=== PATIENT | female | born 1950 | race Two or more races ===

== ENCOUNTER 2019-04-02 12:06 | Inpatient (IN) | payer MEDICARE, MEDICAID ==
--- NOTE | 2019-04-02 12:57 | ED ---
HPI Cardiac - HPI Summary HPI Summary: Patient is a 68 y/o F presenting to ED for evaluation for "spot on my lung" noted on CXR by medical provider at [facility]. Patient reports that she has had SOB, chest pain with radiation to back and shoulders, dizziness, diffuse numbness and fatigue for the past couple of days. She additionally notes a cough that is productive of brown-tinged phlegm. Patient had a fever last night and this morning. On vitals, temp is 100.4 F. No abdominal pain or changes in appetite are noted. Male guest notes that the patient has Hx of episodes of dizziness. On triage, pain is rated 8/10, nothing is noted to aggravate/alleviate Sx. Home medications and allergies are reviewed. - History of Current Complaint Chief Complaint: EDChestWallPain Stated Complaint: SPOT ON LUNG/SENT BY PER PT Time Seen by Provider: 04/02/19 12:32 Hx Obtained From: Patient, Other: - male guest Onset/Duration: Started Days Ago, Still Present Timing: Constant, Lasting Days Current Severity: Severe Pain Intensity: 8 Pain Scale Used: 0-10 Numeric Chest Pain Radiates: Yes Chest Pain Radiates To:: Back, Shoulder - bilateral Aggravating Factor(s): Nothing Alleviating Factor(s): Nothing Associated Signs and Symptoms: Positive: Chest Pain, Numbness - diffuse, Dizziness, Shortness of Breath, Fever, Cough, Productive Cough, Other: - positive - fatigue; negative - change in appetite. Negative: Abdominal Pain - Allergy/Home Medications Allergies/Adverse Reactions: Allergies Allergy/AdvReac Type Severity Reaction Status Date / Time streptomycin Allergy Rash Verified 04/02/19 12:41 Home Medications: Home Medications Acetaminophen [Acetaminophen Extra Strength] 500 mg PO Q6HR PRN 04/02/19 [ History Confirmed 04/02/19] Atorvastatin* [Lipitor*] 40 mg PO DAILY 04/02/19 [History Confirmed 04/02/19] Betamethasone Dipropionate [Betamethasone Dipropionat] 0.05 % TOPICAL DAILY PRN 04/02/19 [History Confirmed 04/02/19] Cetirizine* [ZyrTEC 10 MG TAB*] 10 mg PO DAILY 04/02/19 [History Confirmed 04/02] Doxylamine Succinate [Unisom] 12.5 mg PO BEDTIME 04/02/19 [History Confirmed 11/15] Fluticasone NASAL SPRAY 50MCG* [Flonase NASAL SPRAY 50MCG*] 2 spray BOTH NARES DAILY 04/02/19 [History Confirmed 04/02/19] Gabapentin CAP(*) [Neurontin 100 mg CAP(*)] 100 - 300 mg PO BEDTIME 04/02/19 [ History Confirmed 04/02/19] LoraTADine TAB(NF) [Claritin 10 MG TAB(NF)] 10 mg PO DAILY 04/02/19 [History Confirmed 04/02/19] Ursodiol CAP* [Actigall CAP 300 MG*] 300 mg PO BID WITH MEALS 04/02/19 [History Confirmed 04/02/19] hydrOXYzine HCL TAB* [Atarax 25 MG TAB*] 25 mg PO Q6HR PRN 04/02/19 [History Confirmed 04/02/19] PMH/Surg Hx/FS Hx/Imm Hx Endocrine/Hematology History: Denies: Hx Diabetes Cardiovascular History: Denies: Hx Hypertension, Hx Pacemaker/ICD History: Denies: Hx Renal Disease Musculoskeletal History: 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 Sensory History: Reports: Hx Cataracts - BILATERAL Denies: Hx Hearing Aid Comment Only: Hx Contacts or Glasses - glasses Opthamlomology History: Reports: Hx Cataracts - BILATERAL Comment Only: Hx Contacts or Glasses - glasses Neurological History: Reports: Hx Headaches - LEFT SIDE OF HEAD, USUALLY WEEKLY Psychiatric History: Denies: Hx Panic Disorder - Surgical History Surgery Procedure, Year, and Place: EYE SURGERY FOR BLEED ([facility] 2013 REPORT FOR CATARACT REMOVAL AND LENS IMPLANT) Hx Anesthesia Reactions: No Infectious Disease History: No Infectious Disease History: Denies: Traveled Outside the [place] in Last 30 Days - Family History Known Family History: Positive: Other - migraines, brain cancer - Social History Alcohol Use: None Substance Use Type: Reports: None Smoking Status (MU): Light Every Day Tobacco Smoker Review of Systems Positive: Fever, Fatigue Positive: Chest Pain Positive: Shortness Of Breath, Cough Gastrointestinal: Other - negative - change in appetite Negative: Abdominal Pain Positive: Numbness - diffuse All Other Systems Reviewed And Are Negative: Yes Physical Exam - Summary Physical Exam Summary: General: Well-developed, Thin female. No acute distress. HEENT: Normocephalic, Atraumatic. Eyes: Conjuctiva normal, PERRL. Ears: TMs within normal limits. Nares: (-) discharge, (-) erythema. Oropharynx: Clear, mucous membranes moist, (-) exudates. Neck: Soft, FROM, (-) lymphadenopathy, (-) thyromegaly, (-) JVD. Cardiovascular: Normal sinus rhythm, (-) murmur. Lungs: Clear to auscultation bilaterally (-) wheezes, (-) rales, (-) rhonchi. Abdomen: Soft, non-tender, non-distended, (-) organomegaly, normal bowel sounds. Back: (-) CVA tenderness Extremities: No edema. Skin: Warm, dry, (-) rash. Neuro: Alert and oriented x3, no focal deficits, no focal weakness or numbness. Psychiatric: Mood normal, affect normal. Triage Information Reviewed: Yes Vital Signs On Initial Exam: Initial Vitals Temp Pulse Resp BP Pulse Ox 100.4 F 105 18 140/83 99 04/02/19 12:13 04/02/19 12:13 04/02/19 12:13 04/02/19 12:13 04/02/19 12:13 Vital Signs Reviewed: Yes Diagnostics - Vital Signs Vital Signs Temp Pulse Resp BP Pulse Ox 04/02/19 12:13 100.4 F 105 18 140/83 99 - Laboratory Result Diagrams: 04/02/19 12:59 04/02/19 12:59 Lab Statement: Any lab studies that have been ordered have been reviewed, and results considered in the medical decision making process. - CT CT CHEST CT Interpretation Completed By: Radiologist Summary of CT Findings: IMPRESSION: 1. 4 CM SPICULATED MASS OF THE RIGHT UPPER LOBE. 2. MILIARY NODULARITY OF THE LUNGS CONSISTENT WITH HEMATOGENOUS METASTATIC DISEASE GIVEN. THE PRESENCE OF A RIGHT LUNG MASS. 3. SCLEROTIC LESIONS OF THE VERTEBRAL COLUMN CONSISTENT WITH OSTEOBLASTIC METASTATIC. DISEASE GIVEN THE PRESENCE OF A RIGHT LUNG MASS. THIS REPORT WAS REVIEWED BY DR. BEDOYA. - EKG 1221 Cardiac Rate: NL - rate of 95 BPM EKG Rhythm: Sinus Rhythm Summary of EKG Findings: EKG showed NSR with rate of 95 BPM, no STEMI. This EKG was reviewed and interpreted by Dr. Bedoya. Re-Evaluation - Re-Evaluation First Eval Re-Evaluation Time: 13:38 Comment: Physician from [facility] called, it is reported that there were concerns for TB on patient's CXR. Patient placed in n95 mask, moved to another room. Airborne precautions initiated. Second Eval Re-Evaluation Time: 16:41 Comment: Discussed results and admission with the patient, patient is agreeable with admission. Disposition - Course Course Of Treatment: Patient is a 68 y/o F presenting to ED for evaluation for "spot on my lung" noted on CXR by medical provider at [facility]. Patient reports that she has had SOB, chest pain with radiation to back and shoulders, dizziness, diffuse numbness and fatigue for the past couple of days. She additionally notes a cough that is productive of brown-tinged phlegm. Patient had a fever last night and this morning. Patient is noted to be thin-appearing. There are no focal neurological deficits on physical exam. EKG showed NSR with rate of 95 BPM, no STEMI. Physician from [facility] called, it is reported that there were concerns for TB on patient's CXR. Patient placed in n95 mask, moved to another room. Airborne precautions initiated. Bloodwork was obtained. Abnormal values include alk phos 158, glucose 114, BUN/creatinine ratio 24.2. Lactic was 1, first and second trop were negative. During ED course, patient received fluids. CT CHEST IMPRESSION: 1. 4 CM SPICULATED MASS OF THE RIGHT UPPER LOBE. 2. MILIARY NODULARITY OF THE LUNGS CONSISTENT WITH HEMATOGENOUS METASTATIC DISEASE GIVEN. THE PRESENCE OF A RIGHT LUNG MASS. 3. SCLEROTIC LESIONS OF THE VERTEBRAL COLUMN CONSISTENT WITH OSTEOBLASTIC METASTATIC. DISEASE GIVEN THE PRESENCE OF A RIGHT LUNG MASS. Patient's case was discussed with Dr. Rosenthal, Dr. Rosenthal recommends discussing case with hospitalist. Patient 's case was discussed with Dr. Adarsh Lemus accepts for admission. Patient is agreeable with admission. - Diagnoses Provider Diagnoses: Weakness, SOB (shortness of breath), Mass of right lung - Physician Notifications Discussed Care Of Patient With: Cherri Rosenthal Time Discussed With Above Provider: 16:10 Instructed by Provider To: Other - Patient's case was discussed with Dr. Rosenthal , Dr. Rosenthal recommends discussing case with hospitalist. Patient's case was discussed with Dr. Adarsh Lemus accepts for admission. Discharge ED - Sign-Out/Discharge Documenting (check all that apply): Patient Departure - admit Patient Received Moderate/Deep Sedation with Procedure: No - Discharge Plan Condition: Fair Disposition: ADMITTED TO [facility] Referrals: Rebecca Kiser NP [Primary Care Provider] - - Billing Disposition and Condition Condition: FAIR Disposition: Admitted to [facility] - Attestation Statements Document Initiated by Scribe: Yes Documenting Scribe: DIGOENES GREGORIO Provider For Whom Scribe is Documenting (Include Credential): MARCELO BEDOYA MD Scribe Attestation: DIOGENES Obrien, scribed for MARCELO BEDOYA MD on 04/02/19 at 1808. Scribe Documentation Reviewed: Yes Provider Attestation: The documentation as recorded by the DIOGENES ga accurately reflects the service I personally performed and the decisions made by me, MARCELO BEDOYA MD Status of Scribe Document: Viewed
[2019-04-02 13:09] LABS: ABS Basophils 0.1 10^3/ul (0-0.2); ABS Monocytes 0.7 10^3/ul (0-0.8); Eosinophil % 0.2 %; Hematocrit 41 % (35-47); Hemoglobin 14.1 g/dL (12.0-16.0); Lymphocyte % 13.3 %; Mean Corpuscular HGB Conc 34 g/dL (31-36); Mean Corpuscular Hemoglobin 31 pg (27-31); Mean Corpuscular Volume 90 fL (80-97); Mean Platelet Volume 8.3 fL (7.4-10.4); Nucleated Red Blood Cells % 0.1; Platelet Count 226 10^3/uL (150-450); Red Blood Count 4.58 10^6 /uL (3.70-4.87); Red Cell Distribution Width 14 % (10-15); White Blood Count 7.8 10^3/uL (3.5-10.8)
[2019-04-02] MEDS ORDERED: NS 0.9% 1000 ML** 1,000 ML IV ONE (13:10)
[2019-04-02 13:19] LABS: INR 1.02 (0.82-1.09)
--- OUTSIDE RECORDS SUMMARY | 2019-04-02 13:20 | XMS REPORT | Summary of Care ---
:1950 Author Organization [facility] Address [address] [place] [address] Care Team Providers Name Role Phone Matthew Ibarra MD Primary Care Provider Reason for Visit Reason Comments Tongue Problem Tongue has been sore for two weeks and she is extremely tired and has no appetite for two weeks. Nail Problem Patient is concerned about the change in color of her nails. Encounter Details Date Type Department Care Team Description 03/04/2019 Office Visit [place] [facility] Matthew Ibarra, Polymyalgia (HCC ) (Primary Dx); Medicine Tongue pain; [address] [facility] Lip swelling; [place], [place] [id number] [place] [address] Weakness; [phone] Malaise and fatigue Allergies Active Allergy Reactions Severity Noted Date Comments Streptomycin 03/10/2008 Severe swelling and anaphylactic symptoms. documented as of this encounter (statuses as of 03/04/2019) Medications Medication Sig Dispensed Refills Start Date End Date Status loratadine Take 1 Tab by 30 Tab 5 08/14/2014 Active (CLARITIN,ALAVERT) 10 MG mouth DAILY. Oral TabIndications: Rhinitis fluticasone (FLONASE) 50 SPRAY 2 SPRAY IN 1 Bottle 5 06/28/2015 Active MCG/ACT Nasal Suspension NOSE DAILY acetaminophen (PAIN & Take 1 Tab by 100 Tab 5 07/19/2015 Active FEVER EXTRA STRENGTH) mouth EVERY SIX 500 MG Oral HOURS NEEDED TabIndications: Trigger for Pain. middle finger of right hand hydrOXYzine pamoate Take 1 Cap by 120 Cap 4 04/13/2016 Active (VISTARIL) 25 MG Oral mouth EVERY SIX CapIndications: Itch HOURS NEEDED (itch). augmented betamethasone APPLY DAILY ONTO 50 g 5 04/11/2018 Active dipropionate SKIN NEEDED (DIPROLENE-AF) 0.05 % Apply externally CreamIndications: Itch atorvastatin (LIPITOR) Take 1 Tab by 90 Tab 3 10/08/2018 Active 40 MG Oral Tab mouth DAILY. Doxylamine Succinate, Take 0.5 Tabs by 0 Active Sleep, (UNISOM PO) mouth EVERY BEDTIME. cetirizine (ZYRTEC) 10 Take 1 Tab by 30 Tab 10 10/30/2018 Active MG Oral TabIndications: mouth DAILY. Allergic rhinitis due to dust ursodiol (ACTIGALL) 300 Take 1 Cap by 60 Cap 1 11/27/2018 Active MG Oral Cap mouth TWO TIMES DAILY WITH MEALS. gabapentin (NEURONTIN) Take 1-3 Caps by 90 Cap 0 12/10/2018 Active 300 MG Oral Cap mouth EVERY BEDTIME. predniSONE (DELTASONE) Take 1 Tab by 14 Tab 0 03/04/2019 Active 10 MG Oral Tab mouth DAILY. documented as of this encounter (statuses as of 03/04/2019) Active Problems Problem Noted Date Finger pain, right 07/21/2015 Trigger finger of right hand 07/21/2015 Allergic rhinitis due to dust 09/11/2014 Allergic rhinitis due to pollen 09/11/2014 Hyperlipidemia 03/10/2008 History of Migraine Headaches 03/10/2008 documented as of this encounter (statuses as of 03/04/2019) Resolved Problems Problem Noted Date Resolved Date Seasonal allergies 03/10/2008 09/11/2014 documented as of this encounter (statuses as of 03/04/2019) Immunizations Name Administration Dates Next Due Depo Medrol (80mg) 07/21/2015 H1N1 Injectable Adult 09/22/2009 Influenza (IM) Preservative Free 05/19/2015, 06/11/2014, 05/04/2010 Influenza Vaccine High Dose 2018 Pneumococcal Conjugate(13 Valent) 11/20/2015 TDAP Vaccine 06/28/2018, 03/24/2009 documented as of this encounter Social History Tobacco Use Types Packs/Day Years Used Date Former Smoker Smokeless Tobacco: Never Used Comments: quit 10 year ago Alcohol Use Drinks/Week oz/Week Comments No 0 Standard drinks or equivalent 0.0 Sex Assigned at Date Recorded Not on file Job Start Date Occupation Industry Not on file Not on file Not on file Travel History Travel Start Travel End No recent travel history available. documented as of this encounter Last Filed Vital Signs Vital Sign Reading Time Taken Comments Blood Pressure 110/78 03/04/2019 4:01 PM EDT Pulse 99 03/04/2019 4:01 PM EDT Temperature 37.2 03/04/2019 4:01 PM EDT C (99 F) Respiratory Rate - - Oxygen Saturation 98% 03/04/2019 4:01 PM EDT Inhaled Oxygen Concentration - - Weight 51.7 kg (114 lb) 03/04/2019 4:01 PM EDT Height 157.5 cm (5' 2") 03/04/2019 4:01 PM EDT Body Mass Index 20.85 03/04/2019 4:01 PM EDT documented in this encounter Patient Instructions Patient InstructionsMatthew Ibarra MD - 03/04/2019 4:00 PM EDTBlood test today continue current medications This is not allergies Prednisone 10 mg once daily 2 weeks Follow up me or Rebecca Kiser [employer]ICAL BIOSTATISTICS DIRECTOR 2-3 weeks documented in this encounter Progress Notes Matthew Ibarra MD - 03/04/2019 4:00 PM EDT PATIENT: Gillian Han : 1950 DATE OF SERVICE: 03/04/2019 CHIEF COMPLAINT: Chief Complaint Patient presents with Tongue Problem Tongue has been sore for two weeks and she is extremely tired and has no appetite for two weeks. Nail Problem Patient is concerned about the change in color of her nails. Subjective HISTORY OF PRESENT ILLNESS: Gillian Han is a 68-y.o. female. HPI 3-4 weeks diffuse muscle aches and weakness no fevers or infectious symptoms She also notes tongue underneath feeling ache and pain no other mouth symptoms She notes ache in arms and legs and trouble combing her hair no joint redness or swelling using no medications for symptoms Denies tick bite or recent foreign travel Patient Active Problem List Diagnosis Hyperlipidemia History of Migraine Headaches Allergic rhinitis due to dust Allergic rhinitis due to pollen Finger pain, right Trigger finger of right hand Family History Problem Relation Age of Onset Hypertension Father Current Outpatient Medications Medication Sig acetaminophen (PAIN & FEVER EXTRA STRENGTH) 500 MG Oral Tab Take 1 Tab by mouth EVERY SIXHOURS NEEDED for Pain. atorvastatin (LIPITOR) 40 MG Oral Tab Take 1 Tab by mouth DAILY. augmented betamethasone dipropionate (DIPROLENE-AF) 0.05 % Apply externally Cream APPLY DAILYONTO SKIN NEEDED cetirizine (ZYRTEC) 10 MG Oral Tab Take 1 Tab by mouth DAILY. Doxylamine Succinate, Sleep, (UNISOM PO) Take 0.5 Tabs by mouth EVERY BEDTIME. fluticasone (FLONASE) 50 MCG/ACT Nasal Suspension SPRAY 2 SPRAY IN NOSE DAILY gabapentin (NEURONTIN) 300 MG Oral Cap Take 1-3 Caps by mouth EVERY BEDTIME. hydrOXYzine pamoate (VISTARIL) 25 MG Oral Cap Take 1 Cap by mouth EVERY SIX HOURS NEEDED (itch). loratadine (CLARITIN,ALAVERT) 10 MG Oral Tab Take 1 Tab by mouth DAILY. predniSONE (DELTASONE) 10 MG Oral Tab Take 1 Tab by mouth DAILY. ursodiol (ACTIGALL) 300 MG Oral Cap Take 1 Cap by mouth TWO TIMES DAILY WITH MEALS. No current facility-administered medications for this visit. Allergies Allergen Reactions Streptomycin Severe swelling and anaphylactic symptoms. Social History Socioeconomic History Marital status: Single Spouse name: Not on file Number of children: Not on file Years of education: Not on file Highest education level: Not on file Occupational History Not on file Social Needs Financial resource strain: Not on file Food insecurity: Worry: Not on file Inability: Not on file Transportation needs: Medical: Not on file Non-medical: Not on file Tobacco Use Smoking status: Former Smoker Smokeless tobacco: Never Used Tobacco comment: quit 10 year ago Substance and Sexual Activity Alcohol use: No Alcohol/week: 0.0 standard drinks Drug use: No Sexual activity: Yes Partners: Male Lifestyle Physical activity: Days per week: Not on file Minutes per session: Not on file Stress: Not on file Relationships Social connections: Talks on phone: Not on file Gets together: Not on file Attends christian service: Not on file Active member of club or organization: Not on file Attends meetings of clubs or organizations: Not on file Relationship status: Not on file Intimate partner violence: Fear of current or ex partner: Not on file Emotionally abused: Not on file Physically abused: Not on file Forced sexual activity: Not on file Other Topics Concern Back Care Not Asked Bike Helmet Not Asked Blood Transfusions Not Asked Caffeine Concern No Exercise Yes Comment: walks daily Hobby Hazards Not Asked International Travel Not Asked Service Not Asked Occupational Exposure Not Asked Seat Belt Not Asked Self-Exams Not Asked Sleep Concern Not Asked Special Diet Yes Comment: low fat Stress Concern Not Asked Weight Concern No Social History Narrative [place] immigrant Lives in [facility] with daughter Retired from restaurant business Over the last 2 weeks, have you been feeling down, depressed, anxious, or hopeless?: 0 Over the past 2 weeks, have you felt little interest or pleasure in doing things ?: 0 ROS no rash No pulmonary symptoms Objective PHYSICAL EXAM: VITALS: BP 110/78 | Pulse 99 | Temp 99 F (37.2 C) | Ht 5' 2" (1.575 m) | Wt 114 lb (51.7 kg) | SpO2 98% | BMI 20.85 kg/m Body mass index is 20.85 kg/m. Physical Exam A general joint exam is normal with full range of motion of spine, shoulders, elbows, wrists, fingers, hips, knees and ankles; no active swelling, tenderness or synovitis at any joint. No soft tissuenodules. No muscle tenderness or weakness no rash Throat exam normal. Oral cavity, tongue, pharynx and palate have no inflammation or suspicious lesions. Teeth normal without tenderness ASSESSMENT / IMPRESSION: ICD-9-CM ICD-10-CM 1. Polymyalgia (HCC) rule out Polymyalgia Rheumatica empiric trial Prednisone 10 mg 2-3 weeks followup me 3 weeks esr crp and complete blood count 725 M35.3 CBC WITH DIFFERENTIAL CREATINE KINASE SEDIMENTATION RATE C-REACTIVE PROTEIN COMPREHENSIVE METABOLIC PANEL 2. Tongue pain ? Etiology 529.6 K14.6 4. Weakness 780.79 R53.1 5. Malaise and fatigue 780.79 R53.81 R53.83 Patient Instructions Blood test today continue current medications This is not allergies Prednisone 10 mg once daily 2 weeks Follow up me or Rebecca Kiser NP 2-3 weeks Matthew Ibarra MD 03/04/2019 17:24 documented in this encounter Plan of Treatment Name Type Priority Associated Diagnoses Date/Time CBC WITH DIFFERENTIAL Lab Routine Polymyalgia (HCC) 03/04/2019 4:26 PM EDT CREATINE KINASE Lab Routine Polymyalgia (HCC) 03/04/2019 4:26 PM EDT SEDIMENTATION RATE Lab Routine Polymyalgia (HCC) 03/04/2019 4:26 PM EDT C-REACTIVE PROTEIN Lab Routine Polymyalgia (HCC) 03/04/2019 4:26 PM EDT COMPREHENSIVE METABOLIC Lab Routine Polymyalgia (HCC) 03/04/2019 4:26 PM EDT PANEL Health Maintenance Due Date Last Done Comments ZOSTER IMMUNIZATION SERIES 2000 (1 of 2) FALL RISK ASSESSMENT 2015 OSTEOPOROSIS SCREENING 2015 PNEUMOCOCCAL 65+YRS (2 of 2 11/19/2016 11/20/2015 - PPSV23) MEDICARE ANNUAL WELLNESS 02/14/2017 02/15/2016, 02/15/2016 VISIT INFLUENZA VACCINE (#1) 2019 2018, 05/19/2015, 06/11/2014, Additional history exists MAMMOGRAM (SCREENING) 05/15/2019 05/15/2018, 03/13/2016, 02/15/2016, Additional history exists LIPID DISORDER SCREENING 10/09/2019 10/08/2018, 12/10/2017, 02/15/2016, Additional history exists DEPRESSION SCREENING 03/04/2020 03/04/2019 COLONOSCOPY SCREENING 07/08/2022 07/08/2013, 03/27/2011 HPV IMMUNIZATION SERIES Aged Out No longer eligible based on patient's age to complete this topic MENINGOCOCCAL VACCINE IMM Aged Out No longer eligible based on patient's age to complete this topic documented as of this encounter Results Not on filedocumented in this encounter Visit Diagnoses Diagnosis Polymyalgia (HCC) - Primary Polymyalgia rheumatica Tongue pain Glossodynia Lip swelling Diseases of lips Weakness Other malaise and fatigue Malaise and fatigue Other malaise and fatigue documented in this encounter Insurance Payer Benefit Plan / Subscriber ID Effective Dates Phone Address Type Group MEDICARE MEDICARE PART A xxxxxxxxxx 2015-Present Medicare & B MEDICAID [facility] xxxxxxxx 2017-Present Medicaid [place] documented as of this encounter
[2019-04-02 13:31] LABS: ALT 14 U/L (7-52); AST 27 U/L (13-39); Albumin 4.3 g/dL (3.2-5.2); Albumin/Globulin Ratio 1.3 (1-3); Alkaline Phosphatase 158 U/L (34-104); Anion Gap 5 mmol/L (2-11); BUN/Creatinine Ratio 24.2 (8-20); Blood Urea Nitrogen 15 mg/dL (6-24); CO2 Carbon Dioxide 27 mmol/L (22-32); Calcium 9.5 mg/dL (8.6-10.3); Chloride 104 mmol/L (101-111); EGFR African American 115.8 (>60); EGFR Non-African American 95.7 (>60); Globulin 3.2 g/dL (2-4); Glucose 114 mg/dL (70-100); Potassium 3.9 mmol/L (3.5-5.0); Sodium 136 mmol/L (135-145); Total Protein 7.5 g/dL (6.4-8.9)
[2019-04-02] MEDS ORDERED: Iohexol 300* (CONTRAST) 10 ML SDV IV ONE (14:51)
[2019-04-02] MEDS ORDERED: Acetaminophen TAB* 325 MG PO ONE (16:44)
[2019-04-02 17:03] LABS: % Iron Saturation 15 % (15-55); Iron 41 ug/dL (50-212); Total Iron Binding Capacity 280 mcg/dL (250-450); Transferrin 200 mg/dL (203-362)
[2019-04-02 17:24] LABS: Ferritin 214.1 ng/mL (11-307)
[2019-04-02] MEDS ORDERED: Al Hydrox/Mg Hydrox/Simet LIQ* 30 ML UDC PO PRN (18:30)
[2019-04-02] MEDS ORDERED: Senna TAB 8.6 mg* TAB PO PRN (18:30)
[2019-04-02] MEDS ORDERED: Ondansetron INJ* 2 MG/ML VIAL IV PRN (18:30)
[2019-04-02] MEDS ORDERED: Acetaminophen TAB* 325 MG PO PRN (18:30)
[2019-04-02] MEDS ORDERED: Dexamethasone IV* 4 MG/ML 1 ML (4 MG) IV SLOW PU ONE (20:04)
--- NOTE | 2019-04-02 20:38 | HP ---
CC: Dr. Ibarra* HISTORY AND PHYSICAL: DATE OF ADMISSION: 04/02/19 PRIMARY CARE PROVIDER: Dr. Ibarra. ATTENDING PHYSICIAN WHILE IN THE HOSPITAL: Dr. Yordan Nielsen* (dictated by JOSEFA Shepard). CHIEF COMPLAINT: Weakness and abnormal chest x-ray. HISTORY OF PRESENT ILLNESS: Gillian Hna is a 68-year-old Japanese female with past medical history significant for gallstones and hyperlipidemia, who presents to the emergency department today upon direction of her primary care provider, Dr. Ibarra. The patient tells me that she reported to her primary care provider today because she has been having a cough with brown sputum infrequently and difficulty breathing for the last 3 to 4 days. Additionally, she has been having feeling generalized weakness, has been worsening over the last several days. She saw her primary care provider today, who performed a chest x-ray that was found to be abnormal and she was directed to the emergency department. The patient additionally tells me that she has been having bilateral hand and leg numbness and weakness intermittently for the last year. She additionally tells me she has low back and shoulder pain for the last week that has been relieved by Tylenol. Additionally, she tells me she had 1 episode of chest pain that was relieved by Bengay in the lateral aspect of her chest that lasted for 1 day about 3 to 4 days ago. Additionally, she felt symptomatic fever at that time, but this episode has since resolved. She never checked her temperature at that time. The patient has been having difficulty ambulating around her home. Additionally, she is finding that she is having difficulty buttoning her shirt and holding a mug. The patient is left-handed. The patient denies chest pain at the time of evaluation. The patient's breathing feels comfortable at the time of evaluation. Denies visual changes. She tells me that she has had blurred peripheral vision since her cataract repair. She denies abdominal pain or urinary difficulty. EMERGENCY DEPARTMENT COURSE: The patient had a CT of her chest, which demonstrated a spiculated lung mass of 4 cm and miliary nodularity of the lungs consistent with hematogenous metastatic disease and sclerotic lesions in the vertebral column consistent with osteoblastic metastatic disease. The patient additionally was having difficulty ambulating in the emergency department and felt too weak. Therefore, Hospital Medicine was asked to evaluate the patient for admission. PAST MEDICAL HISTORY: 1. Hyperlipidemia. 2. Gallstones. PAST SURGICAL HISTORY: Bilateral cataract surgery. HOME MEDICATIONS: 1. Hydroxyzine 25 mg p.o. q.6 hours p.r.n. itching. 2. Ursodiol 300 mg p.o. b.i.d. with meals. 3. Loratadine 10 mg p.o. daily. 4. Gabapentin 100 to 300 mg p.o. at bedtime. 5. Fluticasone 2 sprays both nares daily. 6. Unisom 12.5 mg p.o. at bedtime. 7. Cetirizine 10 mg p.o. daily. 8. Betamethasone dipropionate 0.05% topical daily p.r.n. itching. 9. Lipitor 40 mg p.o. daily. 10. Acetaminophen 500 mg p.o. q.6 hours p.r.n. pain. ALLERGIES: STREPTOMYCIN (rash). FAMILY HISTORY: Father of a head injury during [place] War in his 40s. Mother, healthy per the patient, who in her 97 of natural causes. SOCIAL HISTORY: The patient is a Japanese immigrant, who came to [place] in the 1980s. She and her are . They have 3 children together. She is a retired restaurant mill hand plate mill. She denies alcohol use and drug use. She is a former smoker and smoked 1 cigarette per day for approximately 15 to 20 years total and she tells me she quit approximately 15 years ago at least. The patient would like her son, Vicente Hughes, to be her surrogate medical decision maker should she need one. His phone number is [phone]. REVIEW OF SYSTEMS: An 11-point review of systems is negative. All pertinent positives and negatives are above in the HPI. All other systems are negative. PHYSICAL EXAMINATION GENERAL: A thin, elderly female, lying in hospital bed, appearing comfortable, in no acute distress, son at bedside. HEENT: Eyes: PERRL. Sclerae anicteric. No nystagmus. Visual kc are not full to confrontation as vision in the lateral aspect of bilateral visual kc is not intact. ENT: Lips appear dry. NECK: Supple without JVD. LUNGS: Clear to auscultation throughout. CARDIO: Regular rate and rhythm without murmurs, rubs, or gallops. ABDOMEN: Soft, nontender, nondistended. EXTREMITIES: No clubbing, cyanosis, or edema. NEURO: The patient is somewhat ataxic on the left lower extremity and left upper extremity. Sensation to light touch is diminished in the left lower extremity and left upper extremity. Strength is approximately 4/5 in the right upper extremity. Strength is approximately 2/5 in the left upper extremity. Strength in the lower extremities bilaterally 5/5 and equal. Speech is clear. Face is symmetrical. Sensation to light touch throughout face is symmetrical. PSYCH: The patient is cooperative and pleasant. DIAGNOSTIC STUDIES/LAB DATA: CT of the chest: 1. A 4-cm spiculated mass in the right upper lobe. 2. Miliary nodularity of the lungs consistent with hematogenous metastatic disease given the presence of right lung mass. 3. Sclerotic lesions in the vertebral column consistent with osteoblastic metastatic disease given the presence of right lung mass. Labs: White blood cells 7.8, hemoglobin 14.1, hematocrit 41, platelet count 226. Sodium 136, potassium 3.9, chloride 104, carbon dioxide 27, anion gap 5, BUN 15, creatinine 0.62, glucose 114, lactic acid 1, calcium 9.5. Alk phos 158. LFTs otherwise unremarkable. Troponin 0.0. B12 is 362. ASSESSMENT AND PLAN: Gillian Han is a 68-year-old female with past medical history of hyperlipidemia and gallstones, who presents to the emergency department due to weakness and abnormal chest x-ray, who was found to have spiculated lung mass. The patient will be admitted in observation for: 1. Brown sputum and lung mass. Given the patient is from [place] and that she is having some brown sputum, it is possible that the miliary nodules found on the CT represent miliary tuberculosis. It is quite possible that this mass of the right upper lobe is presenting with hematogenous metastatic miliary nodules , but it is also possible that there is a right upper lobe cancer that is reactivating tuberculosis. I have discussed with the patient that the lung mass needs further outpatient workup for a biopsy. In the inpatient stay, I will be testing the patient for tuberculosis with an acid-fast, sputum culture and placing the patient under isolation precautions with negative pressure. The patient does tell me she was symptomatically feeling feverish days ago. Technically, she had a fever upon arrival of 104, but then with administration of Tylenol did have resolution of this fever. Her lactic acid is within normal limits. The patient is without leukocytosis. We will continue to monitor her fever and continue p.r.n. Tylenol. 2. Left upper extremity weakness. The patient tells me this has been going on for 2 weeks. It is quite possible that the patient has metastatic brain disease ; however, a stroke remains in the differential. I have ordered a stat CT of the brain. Depending on the results of this test, I will order a brain MRI with and without contrast. If the brain MRI or CT of the brain is revealing of metastatic disease, then I will perform further stroke workup at this time. As far as the stroke workup, I will order fasting lipids and hemoglobin A1c in the morning. 3. Bilateral lower extremity neuropathy. The patient has had outpatient workup for this and tells me that she had a brain MRI in the outpatient setting a year ago. It is possible this is related to brain lesion or perhaps the lesion in her spine. She will be evaluated by Physical Therapy and Occupational Therapy. I will continue the patient's gabapentin. 4. Hyperlipidemia. I will continue the patient's home Lipitor. 5. Gallstones. I will continue the patient's home ursodiol. 6. DVT prophylaxis: The patient has been started on Lovenox 40 mg subcu daily. 7. FEN: The patient can have a regular diet. No fluids indicated at this time. The patient did receive 1 L of IV normal saline in the emergency department. 8. Code status: The patient is a full code. TIME SPENT: Approximately 45 minutes was spent on this admission, approximately half this time was spent at bedside. This case has been reviewed by my attending, Dr. Yordan Nielsen, and he agrees with this plan of care. JOSEFA SHEPARD [id number]/[facility] #: [id number] ISAAC
[2019-04-02] MEDS ORDERED: Gadoteridol* (CONTRAST) 279.3 MG/ML 10 ML IV ONE (20:58)
[2019-04-02] MEDS ORDERED: Enoxaparin(*) 40 MG/0.4 ML SYR SUBCUT SCH (21:00)
[2019-04-02] MEDS ORDERED: Iodixanol* (CONTRAST) 320 MG/ML 100 ML SDV IV ONE (23:14)
[2019-04-03] MEDS ORDERED: NS 0.9% 1000 ML** 1,000 ML IV SCH (03:30)
[2019-04-03 05:25] LABS: ABS Lymphocytes 0.6 10^3/ul (1.0-4.8); ABS Neutrophils 4.2 10^3/ul (1.5-7.7); Hematocrit 39 % (35-47); Hemoglobin 13.6 g/dL (12.0-16.0); Lymphocyte % 12.4 %; Mean Corpuscular HGB Conc 35 g/dL (31-36); Mean Corpuscular Hemoglobin 31 pg (27-31); Mean Corpuscular Volume 89 fL (80-97); Mean Platelet Volume 8.6 fL (7.4-10.4); Platelet Count 234 10^3/uL (150-450); Red Cell Distribution Width 13 % (10-15); White Blood Count 4.8 10^3/uL (3.5-10.8)
[2019-04-03 05:43] LABS: BUN/Creatinine Ratio 26.3 (8-20); Calcium 9.6 mg/dL (8.6-10.3); EGFR African American 127.6 (>60); EGFR Non-African American 105.5 (>60); HDL Cholesterol 56.1 mg/dL; Potassium 3.8 mmol/L (3.5-5.0)
[2019-04-03] MEDS: Dexamethasone IV* 4 MG/ML 1 ML (4 MG) IV SLOW PU SCH ×2 (05:53→14:00)
[2019-04-03 06:07] LABS: TSH (Thyroid Stimulating Horm) 0.89 mcIU/mL (0.34-5.60)
--- NOTE | 2019-04-03 08:34 | CONSULT ---
Consultation - Reason for Consultation Reason for Consultation: wide spread lesions Ordering Provider: Stephanie Chen Chief Complaint: abnormal CXR History of Present Illness: 68 yo French F w PMH of hyperlipidemia and remote tobacco use presenting with a lung mass and found to have diffusely metastatic disease. Lieu is a bit of a vague historian, but reports dizziness that started about 1 year ago. Over the last couple of days it has been much worse and associated with nausea and left arm and leg weakness. She also started feeling very weak, developed chest pain, and started coughing up brownish sputum. She reports that this all came on "very fast" and she just felt "so terrible". She does report 10 pound weight loss over a vague period of time. Given this she went to her primary, Dr. Ibarra. CXR showed a lung mass and she was referred to the ER. In the ER CT of her chest showed a large right upper lobe lung mass (4 cm) with diffuse miliary disease and diffuse bony disease. With her neurological symptoms she had an MRI of her brain, cervical and thoracic spine, as well as a CTA of her brain/neck. These have all been personally reviewed and are notable for multiple brain lesions with mild vasogenic edema, no midline shift, no evidence of herniation. The large occipital lobe lesion does have some internal hemorrhage. There were innumerable spinal bony mets with no epidural extension. Given concern for brain bleeding she was moved into the ICU over night, neurosurgery was consulted, and she was started on IV steroids. Her neurological symptoms are already improving. She reports that she smoked 1 cigarette per day for 15-20 years in [facility], and quit "many years ago". Allergies/Medications Medication: Acetaminophen (Tylenol Tab*) 650 mg PO Q4H PRN PRN Reason: MILD PAIN or TEMP > 100.4 Al Hydrox/Mg Hydrox/Simethicone (Maalox Plus*) 30 ml PO Q6H PRN PRN Reason: INDIGESTION Dexamethasone Sodium Phosphate (Decadron Iv*) 4 mg IV SLOW PU Q6HR [facility] Last Admin: 04/03/19 05:53 Dose: 4 mg Sodium Chloride (Ns 0.9% 1000 Ml) 1,000 mls @ 75 mls/hr IV PER RATE [facility] Last Admin: 04/03/19 03:47 Dose: 75 mls/hr Ondansetron HCl (Zofran Inj*) 4 mg IV Q4H PRN PRN Reason: NAUSEA/VOMITING Senna (Senokot 8.6 Mg Tab*) 1 tab PO BID PRN PRN Reason: CONSTIPATION Allergies/Adverse Reactions: Allergies Allergy/AdvReac Type Severity Reaction Status Date / Time streptomycin Allergy Rash Verified 04/02/19 12:41 History - Past Medical History Other History: gallstone. hyperlipidema - Family History Hx Family Cancer: No - Social History Hx Alcohol Use: No Hx Tobacco Use: Yes Hx Substance Use: No Marital Status: Single Review of Systems - Review of Systems Constitutional Symptoms: Positive: Weight Loss, Fatigue Dermatology: Positive: Normal HEENT: Positive: Normal Eyes: Positive: Normal Thyroid: Positive: Normal Pulmonary: Positive: Cough Cardiology: Positive: Chest Pain Gastroenterology: Positive: Nausea Musculoskeletal: Positive: Other - diffuse bony pains Endocrinology: Positive: Normal Neurology: Positive: Headache, Dizziness Psychiatry: Positive: Normal Physical Exam - Physical Exam Physical Examination: Vital Signs Temp Pulse Resp BP Pulse Ox 97.2 F 89 16 92/56 97 04/03/19 03:41 04/03/19 08:01 04/03/19 08:01 04/03/19 08:00 04/03/19 08:01 Perr eomi op moist CTA bl s1 s2 nl soft nt +Bs no le edema 4/5 LUE and LLE strength intact on right did not ambulate A+O x 3 Results - Lab Results Lab Results: 04/02/19 04/02/19 04/02/19 12:56 12:59 12:59 WBC 7.8 RBC 4.58 Hgb 14.1 Hct 41 MCV 90 MCH 31 MCHC 34 RDW 14 Plt Count 226 MPV 8.3 Neut % (Auto) 77.2 Lymph % (Auto) 13.3 [place] % (Auto) 8.4 Eos % (Auto) 0.2 Baso % (Auto) 0.9 Absolute Neuts (auto) 6.0 Absolute Lymphs (auto) 1.0 Absolute Monos (auto) 0.7 Absolute Eos (auto) 0.0 Absolute Basos (auto) 0.1 Absolute Nucleated RBC 0.0 Nucleated RBC % 0.1 INR (Anticoag Therapy) 1.02 Sodium Potassium Chloride Carbon Dioxide Anion Gap BUN Creatinine Est GFR ( Amer) Est GFR (Non-Af Amer) BUN/Creatinine Ratio Glucose Lactic Acid 1.0 Calcium Iron TIBC % Saturation Unsat Iron Binding Transferrin Ferritin Total Bilirubin AST ALT Alkaline Phosphatase Troponin I Total Protein Albumin Globulin Albumin/Globulin Ratio Triglycerides Cholesterol LDL Cholesterol HDL Cholesterol Vitamin B12 TSH 04/02/19 04/02/19 04/03/19 12:59 15:01 05:08 WBC RBC Hgb Hct MCV MCH MCHC RDW Plt Count MPV Neut % (Auto) Lymph % (Auto) [place] % (Auto) Eos % (Auto) Baso % (Auto) Absolute Neuts (auto) Absolute Lymphs (auto) Absolute Monos (auto) Absolute Eos (auto) Absolute Basos (auto) Absolute Nucleated RBC Nucleated RBC % INR (Anticoag Therapy) Sodium 136 137 Potassium 3.9 3.8 Chloride 104 104 Carbon Dioxide 27 23 Anion Gap 5 10 BUN 15 15 Creatinine 0.62 0.57 Est GFR ( Amer) 115.8 127.6 Est GFR (Non-Af Amer) 95.7 105.5 BUN/Creatinine Ratio 24.2 H 26.3 H Glucose 114 H 166 H Lactic Acid Calcium 9.5 9.6 Iron 41 L TIBC 280 % Saturation 15 Unsat Iron Binding < 265 Transferrin 200 L Ferritin 214.1 Total Bilirubin 0.80 AST 27 ALT 14 Alkaline Phosphatase 158 H Troponin I 0.00 0.00 Total Protein 7.5 Albumin 4.3 Globulin 3.2 Albumin/Globulin Ratio 1.3 Triglycerides 68 Cholesterol 333 LDL Cholesterol 263 HDL Cholesterol 56.1 Vitamin B12 362 TSH 0.89 04/03/19 05:08 WBC 4.8 RBC 4.40 Hgb 13.6 Hct 39 MCV 89 MCH 31 MCHC 35 RDW 13 Plt Count 234 MPV 8.6 Neut % (Auto) 86.3 Lymph % (Auto) 12.4 [place] % (Auto) 0.9 Eos % (Auto) 0.0 Baso % (Auto) 0.4 Absolute Neuts (auto) 4.2 Absolute Lymphs (auto) 0.6 L Absolute Monos (auto) 0.0 Absolute Eos (auto) 0.0 Absolute Basos (auto) 0.0 Absolute Nucleated RBC 0.0 Nucleated RBC % 0.0 INR (Anticoag Therapy) Sodium Potassium Chloride Carbon Dioxide Anion Gap BUN Creatinine Est GFR ( Amer) Est GFR (Non-Af Amer) BUN/Creatinine Ratio Glucose Lactic Acid Calcium Iron TIBC % Saturation Unsat Iron Binding Transferrin Ferritin Total Bilirubin AST ALT Alkaline Phosphatase Troponin I Total Protein Albumin Globulin Albumin/Globulin Ratio Triglycerides Cholesterol LDL Cholesterol HDL Cholesterol Vitamin B12 TSH Assessment and Plan Impression: 68 yo F w a large lung lesion, multiple brain lesions, and innumerable bony lesions concerning for metastatic lung cancer. With the rapidity of her symptoms small cell lung cancer is certainly high on the differential, though nonsmall cell also clearly possible. She is symptomatically markedly improved with steroids. She has only minimal edema/mass effect with no midline shift and heavy systemic disease burden and so I am not sure that neurosurgical management is necessary at this point. I will defer that to Dr. Nolan, who will see her this morning. She does not have bulky mediastinal adenopathy and so I would recommend CT guided right upper lobe lung biopsy PATEL. As she is now minimally symptomatic I do think she could be discharged after the biopsy on oral steroids (4 mg po tid) with plan to follow up with me next week, and urgent referral to radiation oncology for WBRT (I did review with radiation onc today). From an oncologic perspective she can be moved out of the ICU. She will require full staging, but this can certainly be done as an outpatient.
[2019-04-03] MEDS ORDERED: hydrOXYzine HCL TAB* 25 MG PO PRN (14:46)
[2019-04-03] MEDS: Cetirizine* 10 MG TAB PO SCH (15:50)
[2019-04-03] MEDS: Fluticasone NASAL SPRAY 50MCG* 16 gm SPRAY BTL BOTH NARES SCH (15:50)
--- NOTE | 2019-04-03 17:18 | PN ---
Subjective Date of Service: 04/03/19 Interval History: Patient tells me that early this morning she had left sided chest pain with deep inspiration, this later resolved. Denies chest pain at rest or difficulty breathing. Denies abd pain. Tells me she is having low back and neck pain. She tells me tylenol resolves the pain. She tells me that the steroids have made her feel stronger. Discussed with son who is at bedside, he believes the patient does not fully understand how extensive her cancer is. But he does wish for her to have hope. Objective Active Medications: Acetaminophen (Tylenol Tab*) 650 mg PO Q4H PRN PRN Reason: MILD PAIN or TEMP > 100.4 Al Hydrox/Mg Hydrox/Simethicone (Maalox Plus*) 30 ml PO Q6H PRN PRN Reason: INDIGESTION Atorvastatin Calcium (Lipitor*) 40 mg PO DAILY [facility] Cetirizine HCl (Zyrtec*) 10 mg PO DAILY [facility] Last Admin: 04/03/19 15:50 Dose: 10 mg Dexamethasone Sodium Phosphate (Decadron Iv*) 4 mg IV SLOW PU Q6HR [facility] Last Admin: 04/03/19 14:00 Dose: 4 mg Fluticasone Propionate (Flonase Nasal [place] 50mcg*) 2 spray BOTH NARES DAILY [facility] Last Admin: 04/03/19 15:50 Dose: 2 spray Hydroxyzine HCl (Atarax Tab*) 25 mg PO Q6HR PRN PRN Reason: ITCHING Ondansetron HCl (Zofran Inj*) 4 mg IV Q4H PRN PRN Reason: NAUSEA/VOMITING Senna (Senokot 8.6 Mg Tab*) 1 tab PO BID PRN PRN Reason: CONSTIPATION Ursodiol (Actigall Cap*) 300 mg PO BID WITH MEALS [facility] Vital Signs - 8 hr 04/03/19 04/03/19 04/03/19 12:00 13:05 13:35 Temperature 98.1 F 98.8 F 97.5 F Pulse Rate 81 85 85 Respiratory 16 15 18 Rate Blood Pressure 152/61 103/72 125/66 (mmHg) O2 Sat by Pulse 97 97 99 Oximetry 04/03/19 15:23 Temperature 98 F Pulse Rate 87 Respiratory 18 Rate Blood Pressure 114/64 (mmHg) O2 Sat by Pulse 97 Oximetry Oxygen Devices in Use Now: None Appearance: Thin, female laying in bed appearing in NAD, son at bedside Eyes: No Scleral Icterus, PERRLA Ears/Nose/Mouth/Throat: Mucous Membranes Moist Neck: NL Appearance and Movements; NL JVP Respiratory: Symmetrical Chest Expansion and Respiratory Effort, Clear to Auscultation Cardiovascular: NL Sounds; No Murmurs; No JVD, RRR Abdominal: - - abd soft, nontender, nondistended Extremities: No Edema, No Clubbing, Cyanosis Skin: No Rash or Ulcers Neurological: Alert and Oriented x 3, - - diminished strength in left arm compared to right Result Diagrams: 04/03/19 05:08 04/03/19 05:08 Microbiology and Other Data: Microbiology 04/02/19 15:01 Aerobic Blood Culture - Preliminary Blood Venous No Growth Day 1 Anaerobic Blood Culture - Preliminary No Growth Day 1 04/02/19 15:01 Aerobic Blood Culture - Preliminary Blood Venous No Growth Day 1 Anaerobic Blood Culture - Preliminary No Growth Day 1 04/02/19 20:50 Nasal Screen MRSA (PCR) - Final Nasal Mrsa Not Detected Assess/Plan/Problems-Billing Assessment: 68 yo female with PMHx HTN and HLD presents to the ED upon direction of her PCP with progressive weakness and an abnormal x-ray, found to have lung, spine, and brain lesions with concern for metastatic cancer. - Patient Problems (1) Brain lesion Current Visit: Yes Status: Acute Code(s): G93.9 - DISORDER OF BRAIN, UNSPECIFIED SNOMED Code(s): 390442605 Comment: -imaging revealed internal hemorrhage within multiple brain lesions -initially neurosurgery recommend IV dexamethasone and admission to the ICU; has since been safe to be transferred to the floor -heme/onc recommends po steroids, will change now -neurosurgery recommended additional CT brain to confirm there is not worsening bleeding; bleeding is stable but Dr. Chow recommends overnight observation (2) Lung mass Current Visit: Yes Status: Acute Code(s): R91.8 - OTHER NONSPECIFIC ABNORMAL FINDING OF LUNG FIELD SNOMED Code(s): 643432930 Comment: -lung mass with presence of spine lesions and brain lesions, concern for metastatic lung cancer -heme/onc is involved, appreciate Dr. Rosenthal's recommendations -patient had US guided lung biopsy today, tolerated procedure well -pathology pending and will follow up outpatient (3) Neck pain Current Visit: Yes Status: Acute Code(s): M54.2 - CERVICALGIA SNOMED Code( s): 25181272 Comment: -consistent with cervical spine mets -patient tells me tylenol is enough for her pain, we thoroughly discussed that oxycodone is available if she needs further pain control -prn oxycodone 5mg ordered (4) Weakness Current Visit: Yes Status: Acute Code(s): R53.1 - WEAKNESS SNOMED Code(s) : 01562154 Comment: -likely secondary to spine and brain mets -patient feels symptomatically improved with steroids -PT/OT involved (5) Hyperlipidemia Current Visit: Yes Status: Acute Code(s): E78.5 - HYPERLIPIDEMIA, UNSPECIFIED SNOMED Code(s): 51377928 Comment: -continue home statin (6) DVT prophylaxis Current Visit: Yes Status: Acute Code(s): Z29.9 - ENCOUNTER FOR PROPHYLACTIC MEASURES, UNSPECIFIED SNOMED Code(s): 907157804 Comment: -chemoprophylaxis contraindicated in setting of intracranial intra-mass hemorrhage -SCDs (7) Full code status Current Visit: Yes Status: Acute Code(s): Z78.9 - OTHER SPECIFIED HEALTH STATUS SNOMED Code(s): 737068674 Status and Disposition: likely discharge tomorrow to home provided home care services can be coordinated promptly
--- NOTE | 2019-04-03 18:45 | CONS ---
CONSULTATION REPORT: DATE OF CONSULT: 04/03/19 HISTORY OF PRESENT ILLNESS: This is a 68-year-old female, who reported to the ED yesterday with complaints of shortness of breath and coughing up brown sputum , in addition was also complaining of unilateral left-sided headache with left upper extremity weakness. The patient had noticed a gradual decrease in left upper extremity strength over the last few months. She had imaging done by her primary care provider, a chest x-ray, which showed a nodule in the right upper lung apices. The patient was referred to the emergency room. At that point had CT scans of her brain, cervical spine, and thoracic spine, which showed significant findings. Neurosurgery was consulted to evaluate the patient. Presently, she complains of left upper extremity weakness. Denies any loss of control of bladder or bowel. Has noticed difficulty with walking and balance besides the weakness in her left lower extremity. At the time of consult, the patient was seen with myself and Dr. Chow, and her son was at bedside to do some translation as well. PAST MEDICAL HISTORY: Significant for seasonal allergies, high cholesterol. PHYSICAL EXAM: Vital Signs: Pulse rate 81 to 89, respiratory rate 15 to 18, O2 saturation 97% to 99%, blood pressure systolic 103 to 152 over diastolic 61 to 72. The patient is sitting upright in bed, comfortable. Mood is pleasant. No acute distress noted. Neuro Exam: The patient has GCS 15. Alert and oriented x4. Has visual disturbance in the left periphery and has decreased peripheral vision on the left side. Has noticeable decreased left upper extremity strength compared to the right as well as decreased left lower extremity strength compared to the right with hip flexion and also EHL. Sensation intact. Cranial nerves II through XII grossly intact without impairment. ASSESSMENT: A 68-year-old female with newly diagnosed possible lung cancer with decreased motor strength in the left upper extremity with numbness and tingling in both hands left greater than right, has some decreased motor strength in the lower left extremity possibly due to malignancy. On imaging, the patient had multiple lesions with the greatest lesion being found in the left parietal section of the brain and multiple seeded metastatic lesions to the cervical and thoracic spine vertebrae. PLAN: At this point, the patient would probably not be a surgical candidate at this time. Her previous images showed some hemorrhagic findings in the left parietal area. Would recommend a repeat CT head scan in the morning. If the CT scan or hemorrhage is stable, the patient can follow up clinically. The patient would need to continue to follow with Oncology for her malignancy and possibly be treated with chemotherapy or radiation. We will coordinate this patient's care with Dr. Multani or Dr. Rosenthal at this point. We will be happy to follow up with the patient in clinic. If the hemorrhage does spread, we will possibly reconsider surgical intervention. JOSEFA PATRICIO [id number]/[facility] #: [id number] MTDD
[2019-04-03] MEDS: Ursodiol CAP* 300 MG PO SCH ×2 (19:32→19:37)
[2019-04-03] MEDS: predniSONE TAB* 1 MG PO SCH (21:07)
[2019-04-03] MEDS: oxyCODONE TAB* 5 MG TAB PO PRN (22:20)
[2019-04-04] MEDS: predniSONE TAB* 1 MG PO SCH ×3 (07:16→21:33)
[2019-04-04] MEDS: Fluticasone NASAL SPRAY 50MCG* 16 gm SPRAY BTL BOTH NARES SCH (07:16)
[2019-04-04] MEDS: Ursodiol CAP* 300 MG PO SCH ×2 (07:16→17:41)
[2019-04-04] MEDS: Atorvastatin* 40 MG TAB PO SCH (07:16)
[2019-04-04] MEDS: Cetirizine* 10 MG TAB PO SCH (07:17)
--- NOTE | 2019-04-04 09:51 | PN ---
Progress Note - Progress Note Date of Service: 04/04/19 SOAP: Subjective: []Patient was seen this morning, does not appear to have been acute changes over night. She denies any head aches, nausea or vomiting. She did repeat a CT scan yesterday, which was unchanged from previous study. Neurosurgery team spoke with medicine yesterday and recommend another repeat CT scan this morning to evaluate if bleed is stable. Will follow up once scan is complete.
--- NOTE | 2019-04-04 18:41 | PN ---
Subjective Date of Service: 04/04/19 Interval History: Patient worked with PT and deemed safe for discharge with use of walker. Patient worked with OT and deemed safe to return home and perform her ADLs with more time needed to perform them. Patient tells me she feels dizzy at times but this is unchanged since admission. She tells me she feels stronger today. Her back pain is comfortable with pain medications. She denies difficulty breathing and chest pain. She tells me she feels stronger because of the medication (steroids). She tells me she feels okay to return home if she sleeps on the couch or her family moves her bed downstairs, because her bedroom is upstairs but the rest of her apartment is on one level and no stairs to get inside. Her son expresses he feels she is unsafe to go home, and then the patient tells me that she thinks she should stay. This was thoroughly discussed with the patient and her son. I explained the risks of staying in the hospital longer, including infection. I explained that there is no medical need to stay in the hospital and she will likely not feel better tomorrow compared to today, unfortunately. Case management assisted the patient and her son in filling out paperwork to appeal the discharge. Objective Active Medications: Acetaminophen (Tylenol Tab*) 650 mg PO Q4H PRN PRN Reason: MILD PAIN or TEMP > 100.4 Al Hydrox/Mg Hydrox/Simethicone (Maalox Plus*) 30 ml PO Q6H PRN PRN Reason: INDIGESTION Atorvastatin Calcium (Lipitor*) 40 mg PO DAILY [facility] Last Admin: 04/04/19 07:16 Dose: 40 mg Cetirizine HCl (Zyrtec*) 10 mg PO DAILY [facility] Last Admin: 04/04/19 07:17 Dose: 10 mg Fluticasone Propionate (Flonase Nasal [place] 50mcg*) 2 spray BOTH NARES DAILY [facility] Last Admin: 04/04/19 07:16 Dose: 2 spray Hydroxyzine HCl (Atarax Tab*) 25 mg PO Q6HR PRN PRN Reason: ITCHING Ondansetron HCl (Zofran Inj*) 4 mg IV Q4H PRN PRN Reason: NAUSEA/VOMITING Oxycodone HCl (Roxycodone Tab*) 5 mg PO Q6H PRN PRN Reason: PAIN - SEVERE Last Admin: 04/03/19 22:20 Dose: 5 mg Prednisone (Deltasone Tab*) 4 mg PO TID [facility] Last Admin: 04/04/19 14:25 Dose: 4 mg Senna (Senokot 8.6 Mg Tab*) 1 tab PO BID PRN PRN Reason: CONSTIPATION Ursodiol (Actigall Cap*) 300 mg PO BID WITH MEALS [facility] Last Admin: 04/04/19 17:41 Dose: 300 mg Vital Signs - 8 hr 04/04/19 04/04/19 11:23 15:54 Temperature 98.6 F 98.9 F Pulse Rate 82 81 Respiratory 16 16 Rate Blood Pressure 117/64 109/55 (mmHg) O2 Sat by Pulse 98 98 Oximetry Oxygen Devices in Use Now: None Appearance: Thin, elderly white female, laying in bed, appearing in NAD Eyes: No Scleral Icterus, PERRLA Ears/Nose/Mouth/Throat: Mucous Membranes Moist Neck: NL Appearance and Movements; NL JVP Respiratory: Symmetrical Chest Expansion and Respiratory Effort, Clear to Auscultation Cardiovascular: NL Sounds; No Murmurs; No JVD, RRR Abdominal: - - abd soft, nontender, nondistended Extremities: No Edema, No Clubbing, Cyanosis Skin: No Rash or Ulcers Neurological: Alert and Oriented x 3, - - strength 4/5 in bilateral LEs, strength 5/5 in RUE, strength -5/5 in LUE Result Diagrams: 04/03/19 05:08 04/03/19 05:08 Microbiology and Other Data: Microbiology 04/02/19 15:01 Aerobic Blood Culture - Preliminary Blood Venous No Growth Day 1 Anaerobic Blood Culture - Preliminary No Growth Day 1 04/02/19 15:01 Aerobic Blood Culture - Preliminary Blood Venous No Growth Day 1 Anaerobic Blood Culture - Preliminary No Growth Day 1 04/02/19 20:50 Nasal Screen MRSA (PCR) - Final Nasal Mrsa Not Detected Assess/Plan/Problems-Billing Assessment: 68 yo female with PMHx HTN and HLD presents to the ED upon direction of her PCP with progressive weakness and an abnormal x-ray, found to have lung, spine, and brain lesions with concern for metastatic cancer. - Patient Problems (1) Brain lesion Current Visit: Yes Status: Acute Code(s): G93.9 - DISORDER OF BRAIN, UNSPECIFIED SNOMED Code(s): 652335732 Comment: -imaging revealed internal hemorrhage within multiple brain lesions -initially neurosurgery recommend IV dexamethasone and admission to the ICU; has since been safe to be transferred to the floor -heme/onc recommends po steroids, continue -spoke with Dr. Chow 04/03/[address] that day and to observe overnight. He additionally told me that no further CTs were needed if the patient had no neurological changes. -CT brain demonstrated stable bleed within brain mass, no further imaging needed (2) Lung mass Current Visit: Yes Status: Acute Code(s): R91.8 - OTHER NONSPECIFIC ABNORMAL FINDING OF LUNG FIELD SNOMED Code(s): 238662721 Comment: -lung mass with presence of spine lesions and brain lesions, concern for metastatic lung cancer -heme/onc is involved, appreciate Dr. Rosenthal's recommendations -patient had US guided lung biopsy 04/03/19, tolerated procedure well -pathology pending and will follow up outpatient for possible treatments and prognosis; discussed with patient and son that treatment options will likely be limited (3) Neck pain Current Visit: Yes Status: Acute Code(s): M54.2 - CERVICALGIA SNOMED Code( s): 03819351 Comment: -consistent with cervical spine mets -patient tells me tylenol is enough for her pain, we thoroughly discussed that oxycodone is available if she needs further pain control -prn oxycodone 5mg ordered (4) Weakness Current Visit: Yes Status: Acute Code(s): R53.1 - WEAKNESS SNOMED Code(s) : 47678319 Comment: -likely secondary to spine and brain mets -patient feels symptomatically improved with steroids; today her upper and lower extremity strength is improved from admission -PT/OT involved, further discussed in subjective (5) Hyperlipidemia Current Visit: Yes Status: Acute Code(s): E78.5 - HYPERLIPIDEMIA, UNSPECIFIED SNOMED Code(s): 56815240 Comment: -continue home statin (6) DVT prophylaxis Current Visit: Yes Status: Acute Code(s): Z29.9 - ENCOUNTER FOR PROPHYLACTIC MEASURES, UNSPECIFIED SNOMED Code(s): 836362476 Comment: -chemoprophylaxis contraindicated in setting of intracranial intra-mass hemorrhage -SCDs (7) Full code status Current Visit: Yes Status: Acute Code(s): Z78.9 - OTHER SPECIFIED HEALTH STATUS SNOMED Code(s): 060907217 Status and Disposition: Patient ready for discharge today. Patient and son appealed discharge today.
[2019-04-05] MEDS: Cetirizine* 10 MG TAB PO SCH (08:26)
[2019-04-05] MEDS: predniSONE TAB* 1 MG PO SCH ×2 (08:26→14:44)
[2019-04-05] MEDS: oxyCODONE TAB* 5 MG TAB PO PRN (08:27)
[2019-04-05] MEDS: Atorvastatin* 40 MG TAB PO SCH (08:27)
[2019-04-05] MEDS: Ursodiol CAP* 300 MG PO SCH (08:27)
[2019-04-05] MEDS: Fluticasone NASAL SPRAY 50MCG* 16 gm SPRAY BTL BOTH NARES SCH (08:37)
--- NOTE | 2019-04-05 09:08 | PN ---
Subjective Date of Service: 04/05/19 Interval History: Pt is feeling well currently. Overnight she had pain in her head and down the left arm/ribs. Today she feels like her L arm is numb/tingling and weak. She states she can not really hold anything in the L hand (she drops items). She wants to go home. Objective Active Medications: Acetaminophen (Tylenol Tab*) 650 mg PO Q4H PRN PRN Reason: MILD PAIN or TEMP > 100.4 Al Hydrox/Mg Hydrox/Simethicone (Maalox Plus*) 30 ml PO Q6H PRN PRN Reason: INDIGESTION Atorvastatin Calcium (Lipitor*) 40 mg PO DAILY [facility] Last Admin: 04/05/19 08:27 Dose: 40 mg Cetirizine HCl (Zyrtec*) 10 mg PO DAILY [facility] Last Admin: 04/05/19 08:26 Dose: 10 mg Fluticasone Propionate (Flonase Nasal [place] 50mcg*) 2 spray BOTH NARES DAILY [facility] Last Admin: 04/05/19 08:37 Dose: 2 spray Hydroxyzine HCl (Atarax Tab*) 25 mg PO Q6HR PRN PRN Reason: ITCHING Ondansetron HCl (Zofran Inj*) 4 mg IV Q4H PRN PRN Reason: NAUSEA/VOMITING Oxycodone HCl (Roxycodone Tab*) 5 mg PO Q6H PRN PRN Reason: PAIN - SEVERE Last Admin: 04/05/19 08:27 Dose: 5 mg Prednisone (Deltasone Tab*) 4 mg PO TID [facility] Last Admin: 04/05/19 08:26 Dose: 4 mg Senna (Senokot 8.6 Mg Tab*) 1 tab PO BID PRN PRN Reason: CONSTIPATION Ursodiol (Actigall Cap*) 300 mg PO BID WITH MEALS [facility] Last Admin: 04/05/19 08:27 Dose: 300 mg Vital Signs - 8 hr 04/05/19 04/05/19 04/05/19 01:47 02:52 07:25 Temperature 98.3 F 98.1 F Pulse Rate 89 88 Respiratory 16 16 16 Rate Blood Pressure 121/57 111/64 (mmHg) O2 Sat by Pulse 98 99 Oximetry 04/05/19 08:27 Temperature Pulse Rate Respiratory 18 Rate Blood Pressure (mmHg) O2 Sat by Pulse Oximetry Oxygen Devices in Use Now: None Appearance: Middle aged female lying in bed, NAD Eyes: No Scleral Icterus Ears/Nose/Mouth/Throat: Mucous Membranes Moist Respiratory: Symmetrical Chest Expansion and Respiratory Effort, Clear to Auscultation Cardiovascular: NL Sounds; No Murmurs; No JVD, RRR, No Edema Abdominal: NL Sounds; No Tenderness; No Distention Extremities: No Clubbing, Cyanosis Skin: No Nodules or Sclerosis Neurological: Alert and Oriented x 3 Result Diagrams: 04/03/19 05:08 04/03/19 05:08 Microbiology and Other Data: Microbiology 04/02/19 15:01 Aerobic Blood Culture - Preliminary Blood Venous No Growth Day 1 Anaerobic Blood Culture - Preliminary No Growth Day 1 04/02/19 15:01 Aerobic Blood Culture - Preliminary Blood Venous No Growth Day 1 Anaerobic Blood Culture - Preliminary No Growth Day 1 04/02/19 20:50 Nasal Screen MRSA (PCR) - Final Nasal Mrsa Not Detected Assess/Plan/Problems-Billing Ms Han is a 68 yo female with PMHx HTN and HLD who presented to the ED upon direction of her PCP with progressive weakness and an abnormal x-ray, found to have lung, spine, and brain lesions with concern for metastatic cancer. - Patient Problems (1) Metastatic lung cancer (metastasis from lung to other site) Current Visit: Yes Status: Acute Code(s): C34.90 - MALIGNANT NEOPLASM OF UNSP PART OF UNSP BRONCHUS OR LUNG SNOMED Code(s): 83221498 Comment: Pt's lung biopsy returned well differentiated adenocarcinoma. Continue steroids for vasogenic edema. Pt will need to see oncology as outpatient for further treatment. Pt with cervical spine and brain mets in addition to miliary disease of the lungs. Continue tylenol and oxycodone for pain. (2) Weakness Current Visit: Yes Status: Acute Code(s): R53.1 - WEAKNESS SNOMED Code(s) : 71781517 Comment: Secondary to spine and brain mets. Unfortunately the patient's symptoms are unlikely to improve further without definitive treatment of her cancer. Pt is felt to be safe for d/c home. ? set up VNS to help in the short term. (3) Hyperlipidemia Current Visit: Yes Status: Acute Code(s): E78.5 - HYPERLIPIDEMIA, UNSPECIFIED SNOMED Code(s): 86879055 Comment: Continue lipitor. (4) DVT prophylaxis Current Visit: Yes Status: Acute Code(s): Z29.9 - ENCOUNTER FOR PROPHYLACTIC MEASURES, UNSPECIFIED SNOMED Code(s): 810068685 Comment: SCDs, ambulation (5) Full code status Current Visit: Yes Status: Acute Code(s): Z78.9 - OTHER SPECIFIED HEALTH STATUS SNOMED Code(s): 712519413 Status and Disposition: Await results of appeal but patient wants to go home. I have explained that there is nothing that can be done at this time to help with her dizziness/ weakness beyond the steroids that are being given.
--- NOTE | 2019-04-05 10:22 | PN ---
Progress Note - Progress Note Date of Service: 04/05/19 Note: This morning she complains of generalized body pain, but has been stable over night. Her presentation has been unchanged since neurosurgery was consulted. There has been some consideration to discharging the patient, at this time no surgical intervention from neurosurgery indicated.
[2019-04-05] MEDS ORDERED: oxyCODONE TAB* 5 MG TAB PO PRN ×2 (11:52→11:53)
[2019-04-05 16:01] VITALS: BP 127/64
--- NOTE | 2019-04-05 18:27 | DS ---
CC: Dr. Rosenthal; Rebecca Kiser NP * DISCHARGE SUMMARY: DATE OF ADMISSION: 04/02/19 DATE OF DISCHARGE: 04/05/19 PRIMARY CARE PROVIDER: Dr. Ibarra. PRINCIPAL DIAGNOSIS: Metastatic adenocarcinoma of the lung with mets to the brain and bony cervical spine. SECONDARY DIAGNOSES: 1. Hyperlipidemia. 2. History of gallstones. 3. Allergic rhinitis. DISCHARGE MEDICATIONS: 1. Hydroxyzine 25 mg p.o. q.6 hours p.r.n. anxiety. 2. Ursodiol 300 mg p.o. b.i.d. 3. Loratadine 10 mg p.o. daily. 4. Gabapentin 100 mg p.o. q.h.s. p.r.n. pain. 5. Flonase 2 squirts both nostrils daily. 6. Unisom 12.5 mg p.o. q.h.s. 7. Cetirizine 10 mg p.o. daily. 8. Betamethasone topically daily p.r.n. itching. 9. Lipitor 40 mg p.o. daily. 10. Tylenol 500 mg p.o. q.6 hours p.r.n. pain. 11. Prednisone 4 mg p.o. t.i.d. 12. Oxycodone 5 mg 1 to 2 tabs p.o. q.4 hours p.r.n. severe pain. HOSPITAL COURSE: Ms. Han is a 68-year-old female who presented to the emergency room on 04/02/19 after being referred by her PCP due to an abnormal chest x-ray. The patient saw her PCP for complaints of cough with brown sputum and shortness of breath. She also had generalized weakness worsening over several days. Chest x- ray was performed at the office and was found to be abnormal. She was sent to the emergency room for evaluation. In the ER, the patient underwent CT scan of the lungs which revealed a large mass of the right upper lobe with the appearance of miliary nodules. The patient also underwent CT scan of the brain which revealed findings of multifocal metastatic disease involving both cerebral hemispheres, most of which shows possible internal hemorrhage. There is mild adjacent mass effect with no midline shift or herniation. MRI of the brain was then obtained and revealed widespread metastatic disease throughout the cerebrum, cerebellum, and brainstem. There is single frontal bone metastasis. She also underwent cervical and thoracic spine MRIs. There is diffuse metastatic disease throughout the thoracic spine and ribs. There is also diffuse cervical spine osseous metastatic disease without any pathologic fractures. There is a pontine metastasis. There is suggested right vertebral artery occlusion and CTA of the head and neck was recommended. This was subsequently performed and revealed mild right and moderate left internal carotid artery stenosis with a widely patent right vertebral artery. There are minimally atherosclerotic nonstenotic bilateral common carotid arteries, otherwise normal neck CTA. On 04/03/19, the patient underwent lung biopsy. Pathology returned positive for well-differentiated adenocarcinoma. The patient was seen in consultation by Dr. Rosenthal. It is felt the differential prior to pathology included small cell versus non-small- cell lung cancer. It was recommended that she continue on prednisone 4 mg 3 times daily follow up with Dr. Rosenthal next week. The patient was going to be discharged on 04/04/19; however, the patient's son upheld the discharge due to concerns that the patient was still too weak to manage at home alone. On 04/05/19, she was feeling stronger. She does complain of left arm numbness, tingling as well as clumsiness of the left hand. It is felt that these are likely related to her metastatic disease and that nothing further could be done at this time. The patient and son are in agreement with discharge home. The patient was having some pain that was not optimally managed by oxycodone 5 mg as needed; therefore, the prescription was changed to oxycodone 5 to 10 mg every 4 hours as needed for pain. The patient has been instructed to monitor for constipation related to this. The patient has a walker already available to her. This was delivered to her room prior to discharge home. The patient has a followup appointment with Dr. Rosenthal on 04/09/19 at 9 a.m. The patient and her son have been informed of reasons to come back to the emergency room, which include chest pain, difficulty breathing, loss of consciousness, seizure, sudden change in vision, or other neurologic symptoms. FOLLOWUP CONCERNS: The patient is being discharged home today, 04/05/19. Activity level is astolerated. Diet is regular as tolerated. Condition on discharge is fair. The patient should follow up with Rebecca Kiser NP, in the next 4 to [address] Rosenthal on 04/09/19 at 9 a.m. TIME SPENT: Thirty-five minutes was spent discharging this patient. [id number]/[facility] #: [id number] MTDJarad
--- NOTE | 2019-04-05 19:27 | PN ---
Hospitalist Progress Note Date of Service: 04/05/19 HOSPITALIST ADDENDUM Called by charger tester (Corin Dooley) because patient was not able to parts picker her new medications and requests prescriptions be sent to [facility] (now [facility]) at [facility]. Called her discharging physician (Dr Baca) and confirmed prednisone dose. Prescriptions sent electronically.
[2019-04-19 03:55] LABS: LNGPR Specimen Cells; LNGPR Tissue ID CN19-1128
== END 2019-04-05 17:40 | disposition home health service (06) | DRG 542 ==
LOC: ED 12:06 → MEDTELE 18:30 → ICU 20:24 → OBSVTOIN 04-03 08:00 → MED 04-03 13:40
PROVIDERS: ADMIT Internal Medicine; ATTEND Hospitalist
PROC: 0BBJ3ZX Excision of Left Lower Lung Lobe, Percutaneous Approach, Diagnostic (ICD-10-PCS; principal; 2019-04-03)
DX: C79.51 Secondary malignant neoplasm of bone (principal); G93.6 Cerebral edema; I61.2 Nontraumatic intracerebral hemorrhage in hemisphere, unspecified; C79.31 Secondary malignant neoplasm of brain; C34.32 Malignant neoplasm of lower lobe, left bronchus or lung; M17.0 Bilateral primary osteoarthritis of knee; Z96.1 Presence of intraocular lens; E78.5 Hyperlipidemia, unspecified; F17.210 Nicotine dependence, cigarettes, uncomplicated; I65.23 Occlusion and stenosis of bilateral carotid arteries; K80.20 Calculus of gallbladder without cholecystitis without obstruction; E78.00 Pure hypercholesterolemia, unspecified; I65.01 Occlusion and stenosis of right vertebral artery; J30.2 Other seasonal allergic rhinitis; G62.9 Polyneuropathy, unspecified; Z88.1 Allergy status to other antibiotic agents; Z98.42 Cataract extraction status, left eye; Z80.8 Family history of malignant neoplasm of other organs or systems; Z98.41 Cataract extraction status, right eye; Z79.52 Long term (current) use of systemic steroids
CPT/HCPCS: 10005; 36415; 70450; 70496; 70498; 70553; 71260; 72141; 72146; 80048; 80053; 80061; 81445; 82607; 82728; 83036; 83540; 83550; 83605; 84443; 84484; 85025; 85610; 87040; 87641; 88172; 88173; 88305; 88341; 88342; 88360; 88381; 93005; 99223; 99285; A9270-GY; G8978-GP-CJ; G8979-GP-CI; G8987-GO-CI; G8988-GO-CI; G8989-GO-CI; J1100; Q9967

== ENCOUNTER 2019-05-28 13:22 | Emergency (ER) | payer MEDICARE ==
--- NOTE | 2019-05-28 16:48 | ED ---
Head Injury - HPI Summary HPI Summary: Patient is a 68-year-old female who presents emergency department for head injury that occurred yesterday. Patient is currently being treated for brain cancer. Pt. states she fell yesterday and hit that back of her head in a door. Pt. denies LOC. Pt. denies prior lightheadedness, dizziness, cp, sob, abd. pain. notes that pt. has been loosing her balance more with new chemo drug. Sxs are moderate in severity. Pt. current denies any complaints and is anxious to go home. No current modifying factors. - History Of Current Complaint Chief Complaint: EDFall Stated Complaint: FALL INJ HIT HEAD PER DAUGHTER Time Seen by Provider: 05/28/19 15:11 Pain Intensity: 0 - Allergies/Home Medications Allergies/Adverse Reactions: Allergies Allergy/AdvReac Type Severity Reaction Status Date / Time streptomycin Allergy Rash Verified 05/28/19 17:42 Home Medications: Home Medications Atorvastatin* [Lipitor*] 40 mg PO DAILY 05/28/19 [History Confirmed 05/28/19] Dexamethasone TAB* [Decadron TAB*] 2 mg PO TID 05/28/19 [History Confirmed 05/28] Gabapentin CAP(*) [Neurontin 300 CAP(*)] 300 - 900 mg PO BEDTIME 05/28/19 [ History Confirmed 05/28/19] LORazepam TAB(*) [Ativan 0.5 MG TAB (*)] 0.5 mg PO Q8H PRN 05/28/19 [History Confirmed 05/28/19] Omeprazole CAP (NF) [Prilosec CAP* 20 MG] 20 mg PO DAILY 05/28/19 [History Confirmed 05/28/19] Osimertinib Mesylate [Tagrisso] 80 mg PO DAILY 05/28/19 [History Confirmed 05/28] Ursodiol CAP* [Actigall CAP 300 MG*] 300 mg PO BID WITH MEALS 05/28/19 [History Confirmed 05/28/19] fentaNYL PATCH 12 MCG/HR * [Duragesic Patch 12 Mcg/Hr *] 12 mcg TRANSDERM Q72H 05/28/19 [History Confirmed 05/28/19] oxyCODONE TAB* [Roxycodone TAB 5 mg*] 5 mg PO Q4H PRN 05/28/19 [History Confirmed 05/28/19] PMH/Surg Hx/FS Hx/Imm Hx Previously Healthy: Yes Cardiovascular History: Denies: Hx Pacemaker/ICD GI History: Reports: Other GI Disorders - GALLSTONES Sensory History: Denies: Hx Hearing Aid Psychiatric History: Denies: Hx Panic Disorder - Surgical History Surgery Procedure, Year, and Place: EYE SURGERY FOR BLEED([facility] – [place] 2013 REPORT FOR CATARACT REMOVAL AND LENS IMPLANT) - Immunization History Immunizations Up to Date: Yes Infectious Disease History: No Infectious Disease History: Denies: Traveled Outside the [place] in Last 30 Days - Social History Alcohol Use: Rare Substance Use Type: Reports: None Smoking Status (MU): Never Smoked Tobacco Review of Systems Constitutional: Negative Eyes: Negative ENT: Negative Cardiovascular: Negative Respiratory: Negative Gastrointestinal: Negative Genitourinary: Negative Positive: Bruising Neurological: Negative All Other Systems Reviewed And Are Negative: Yes Physical Exam Triage Information Reviewed: Yes Vital Signs On Initial Exam: Initial Vitals Temp Pulse Resp BP Pulse Ox 99.5 F 75 18 131/77 98 05/28/19 13:34 05/28/19 13:34 05/28/19 13:34 05/28/19 13:34 05/28/19 13:34 Vital Signs Reviewed: Yes Appearance: Positive: Well-Appearing - Pt. sitting up in bed in NAD. Pleasant. present. Skin: Positive: Warm, Dry Head/Face: Positive: Other - Small hematoma to right posterior scalp Eyes: Positive: Normal, EOMI, YAMILKA Neck: Positive: Supple, Other: - Midline tenderness Respiratory/Lung Sounds: Positive: Clear to Auscultation, Breath Sounds Present Cardiovascular: Positive: Normal, RRR Abdomen Description: Positive: Nontender, Soft Musculoskeletal: Positive: Normal, Strength/ROM Intact Neurological: Positive: Normal, Alert, Oriented to Person Place, Time, CN Intact II-III Psychiatric: Positive: Affect/Mood Appropriate Procedures - Sedation Patient Received Moderate/Deep Sedation with Procedure: No Diagnostics - Vital Signs Vital Signs Temp Pulse Resp BP Pulse Ox 05/28/19 13:34 99.5 F 75 18 131/77 98 - Laboratory Lab Statement: Any lab studies that have been ordered have been reviewed, and results considered in the medical decision making process. Head Injury Course/Dx Course Of Treatment: Pt. presenting for head injury after a fall. Pt. unclear why she fell last night and states she has had a few recent falls they contribute to her chemo meds. Discussed labs today for further evaluation of falls but pt. and decline. CT per radiology: IMPRESSION: There is a focal 4 mm high density in the posterior temporal lobe which may be. within the sulcus or parenchyma. Possibility of a small parenchymal hematoma versus. subarachnoid hemorrhage should BE considered. 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 No prior studies available for comparison. JOSEFA Grover was notified of the results at 1645 hours. Case initially discussed with Dr. Flaherty who recommends neurosx consult. We currently do not have neurosx oncall today. It appears that pt. was registered incorrectly pt. and switched her first and last name. Pt.'s true account was found and just had an MRI brain last week. Dr. Morales was able to compare today's brain ct and notes that area of concern appars to be a resolving hematoma and that there are no acute findings today. Pt. would like to be dc at this time. To f.u with onc. To return to ER if symtoms change or worsen. - Diagnoses Differential Diagnosis/HQI/PQRI: Cervical Sprain, Hematoma, Intracranial Bleed Provider Diagnoses: Scalp hematoma Discharge ED - Sign-Out/Discharge Documenting (check all that apply): Patient Departure - Discharge Plan Condition: Good Disposition: HOME Patient Education Materials: Head Injury (ED) Referrals: Cherri Rosenthal MD [Medical Doctor] - Additional Instructions: Follow up with oncology as scheduled Return to ER if symptoms change or worsen - Billing Disposition and Condition Condition: GOOD Disposition: Home - Attestation Statements Provider Attestation: I was available for consult. This patient was seen by the MATEO. The patient was not presented to, seen by, or examined by me. -Beck
[2019-05-28 17:57] VITALS: BP 131/83
== END 2019-05-28 17:42 | disposition home or self-care (01) ==
LOC: ED 13:22 → MERGE 13:22 → ED 17:42
DX: S00.03XA Contusion of scalp, initial encounter (principal); W18.39XA Other fall on same level, initial encounter; Y92.9 Unspecified place or not applicable; C71.9 Malignant neoplasm of brain, unspecified; Z79.899 Other long term (current) drug therapy; Z88.1 Allergy status to other antibiotic agents
CPT/HCPCS: 70450; 72125; 99282

== ENCOUNTER 2019-06-12 19:18 | Emergency (ER) | payer MEDICARE, MEDICAID ==
--- NOTE | 2019-06-12 19:31 | ED ---
Complex/Multi-Sys Presentation - HPI Summary HPI Summary: Patient is a 68 y/o F w/ brain, lung, and bone cancer who presents to [facility] via EMS for altered mental status. At around 1730 06/12/19, patient was found to be in a chair with her eyes closed by family. She was minimally responsive at the time. She had requested Tylenol, which was given. Her fentanyl patch was changed as well. The family had brought the patient to her bed to rest. At around 1830, patient's daughter returned home and went to talk with the patient. The patient remained minimally responsive, patient's doctor was called. It was advised that the patient come to ED for evaluation. Currently, the patient states that she is unsure why she is here. It is noted that the patient is significantly better at present compared to earlier today. However, the patient's son reports that the patient's speech is somewhat slurred currently. Patient reports her mouth is dry. Family is concerned that the patient may have gotten into her pain medications. Patient is prescribed oxycodone in addition to fentanyl patches. She had her dose of oxycodone this morning. Family notes that the patient was alone this morning with easy access to her pain medications. Oncologist is Dr. Rosenthal. Patient has previously received radiation therapy and is currently on chemotherapy pills. Family notes that the patient was in "great shape" yesterday, 06/11/19. The patient had also made note of a PIÑA that onset two days ago to EMS. In the room, she makes note of intermittent abdominal pain as well. On triage, pain is rated 5/10, nothing is noted to aggravate/alleviate Sx. Home medications and allergies are reviewed. - History Of Current Complaint Chief Complaint: EDAltMentalStatus Time Seen by Provider: 06/12/19 19:20 Hx Obtained From: Patient Onset/Duration: Lasting Hours, Resolved - AMS is improved Timing: Intermittent, Lasting: Severity Currently: Moderate Location: Pain At: - head, abdomen Aggravating Factor(s): nothing Alleviating Factor(s): nothing Associated Signs And Symptoms: Positive: Headache, Abdominal Pain, Other - positive - AMS, dry mouth, slurred speech - Allergies/Home Medications Allergies/Adverse Reactions: Allergies Allergy/AdvReac Type Severity Reaction Status Date / Time streptomycin Allergy Rash Verified 06/12/19 19:40 Home Medications: Home Medications Furosemide TAB* [Lasix TAB*] 40 mg PO DAILY 06/12/19 [History Confirmed 06/12/19 ] Ondansetron TAB* [Zofran 4 MG Tab*] 4 mg PO Q6H PRN 06/12/19 [History Confirmed 06/12/19] Osimertinib Mesylate [Tagrisso] 80 mg PO DAILY 06/12/19 [History Confirmed 06/12] oxyCODONE TAB* [Roxycodone TAB 5 mg*] 5 mg PO Q4H PRN 06/12/19 [History Confirmed 06/12/19] PMH/Surg Hx/FS Hx/Imm Hx Endocrine/Hematology History: Denies: Hx Diabetes Cardiovascular History: Reports: Hx Hypercholesterolemia Denies: Hx Hypertension, Hx Pacemaker/ICD GI History: Reports: Other GI Disorders - GALLSTONES History: Denies: Hx Dialysis, Hx Renal Disease Musculoskeletal History: 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 Comment Only: Other Musculoskeletal History - bilateral hand and leg numbness and weakness x1year Sensory History: Reports: Hx Cataracts Denies: Hx Contacts or Glasses, Hx Hearing Aid Opthamlomology History: Reports: Hx Cataracts Denies: Hx Contacts or Glasses Neurological History: Reports: Hx Headaches Psychiatric History: Denies: Hx Panic Disorder - Cancer History Hx Radiation Therapy: Yes - Surgical History Surgery Procedure, Year, and Place: EYE SURGERY FOR BLEED([facility] [place] 2013 REPORT FOR CATARACT REMOVAL AND LENS IMPLANT) Hx Anesthesia Reactions: No Infectious Disease History: Unable to Obtain/Confirm Infectious Disease History: Denies: Traveled Outside the US in Last 30 Days - Family History Known Family History: Positive: Other - migraines, brain cancer - Social History Alcohol Use: Rare Hx Substance Use: No Substance Use Type: Reports: None Hx Tobacco Use: Yes Smoking Status (MU): Never Smoked Tobacco Review of Systems ENT: Other - positive - dry mouth Positive: Abdominal Pain Neurological: Other - positive - AMS Positive: Headache, Slurred Speech All Other Systems Reviewed And Are Negative: Yes Physical Exam - Summary Physical Exam Summary: Appearance: Well-appearing, Well-nourished, Elderly Female lying in bed comfortably Skin: Warm, dry, no obvious rash Eyes: sclera anicteric, no conjunctival pallor ENT: mucous membranes moist, pharynx appears normal Neck: Supple, nontender Respiratory: Clear to auscultation, no signs of respiratory distress Cardiovascular: Normal S1, S2. No murmurs. Normal distal pulses in tibial and radial bilaterally. Abdomen: Soft, nontender, normal active bowel sounds present Musculoskeletal: Normal, Strength/ROM Intact Neurological: She is somnolent but arousable to voice. Patient can answer questions appropriately and is alert and oriented x3. Psychiatric: affect is normal, does not appear anxious or depressed Triage Information Reviewed: Yes Vital Signs On Initial Exam: Initial Vitals Temp Pulse Resp BP Pulse Ox 99.4 F 76 16 144/81 98 06/12/19 19:20 06/12/19 19:20 06/12/19 19:20 06/12/19 19:20 06/12/19 19:20 Vital Signs Reviewed: Yes Procedures - Sedation Patient Received Moderate/Deep Sedation with Procedure: No Diagnostics - Vital Signs Vital Signs Temp Pulse Resp BP Pulse Ox 06/12/19 19:20 99.4 F 76 16 144/81 98 - Laboratory Result Diagrams: 06/12/19 20:15 06/12/19 20:14 Lab Statement: Any lab studies that have been ordered have been reviewed, and results considered in the medical decision making process. - EKG 1952 Cardiac Rate: NL - rate of 76 BPM EKG Rhythm: Sinus Rhythm Summary of EKG Findings: NSR at 76 BPM, P waves, QRS complex, and T waves are within normal limits, T waves and intervals are normal, no ischemic changes. This is a normal EKG. No STEMI. This EKG was reviewed and interpreted by Dr. Sexton. Re-Evaluation - Re-Evaluation First Eval Re-Evaluation Time: 23:28 Comment: Patient is alert and oriented x3 at this time. She has no complaints at this time. Patient is discharged to home. Complex Multi-Symp Course/Dx Course Of Treatment: Patient is a 68 y/o F w/ brain, lung, and bone cancer who presents to [facility] via EMS for altered mental status. Currently, it is noted that the patient is significantly better at present compared to earlier today. However, the patient's son reports that the patient's speech is somewhat slurred currently. Patient reports her mouth is dry. Family is concerned that the patient may have gotten into her pain medications. Patient is prescribed oxycodone in addition to fentanyl patches. Family notes that the patient was alone this morning with easy access to her pain medications. Patient is somnolent but is easily arousable to voice, answers questions appropriately, and alert and oriented x3. EKG showed NSR at 76 BPM, P waves, QRS complex, and T waves are within normal limits, T waves and intervals are normal, no ischemic changes. This is a normal EKG. No STEMI. Bloodwork was obtained and within normal limits with exception of RDW 16, MPV 6.9, chloride 100, BUN/creatinine 28.3, calcium 8.3, total protein 5.6, albumin 3.1. UA was negative. During ED course, patient received fluids. Patient was discharged to home. Patient is alert and oriented x3 and without complaints at time of discharge. - Diagnoses Provider Diagnoses: Altered mental status Discharge ED - Sign-Out/Discharge Documenting (check all that apply): Patient Departure - discharge - Discharge Plan Condition: Stable Disposition: HOME Patient Education Materials: Opioid Safety (ED) Referrals: Cherri Rosenthal MD [Medical Doctor] - 1 Day Additional Instructions: Please call the oncology office in the morning to let them know about what happened tonight. You will need to work with the staff there to get the right dosage of your pain medication. - Billing Disposition and Condition Condition: STABLE Disposition: Home - Attestation Statements Document Initiated by [place]: Yes Documenting Silvestreibe: DIOGENES GREGORIO Provider For Whom [place] is Documenting (Include Credential): SHERRELL SEXTON MD Scribe Attestation: DIOGENES Obrien, scribed for SHERRELL SEXTON MD on 06/13/19 at 1845. Scribe Documentation Reviewed: Yes Provider Attestation: The documentation as recorded by the DIOGENES ga accurately reflects the service I personally performed and the decisions made by me, SHERRELL SEXTON MD Status of Scribe Document: Viewed
--- OUTSIDE RECORDS SUMMARY | 2019-06-12 20:02 | XMS REPORT | Summary of Care ---
:1950 Author Organization [facility] Address [address] [place] [address] Care Team Providers Name Role Phone Matthew Ibarra Primary Care Provider Reason for Visit Reason Comments Transitional Care Management pt is here for TCM for Lung Cancer. 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 documented as of this encounter (statuses as of 05/06/2019) Medications Medication Sig Dispensed Refills Start Date End Date Status loratadine Take 1 Tab 30 Tab 5 08/14/2014 Active (CLARITIN,ALAVERT) by mouth 10 MG Oral DAILY. TabIndications: Rhinitis fluticasone SPRAY 2 1 Bottle 5 06/28/2015 Active (FLONASE) 50 SPRAY IN MCG/ACT Nasal NOSE DAILY Suspension acetaminophen (PAIN Take 1 Tab 100 Tab 5 07/19/2015 Active & FEVER EXTRA by mouth STRENGTH) 500 MG EVERY SIX Oral HOURS TabIndications: NEEDED for Trigger middle Pain. finger of right hand cetirizine (ZYRTEC) Take 1 Tab 30 Tab 10 10/30/2018 Active 10 MG Oral by mouth TabIndications: DAILY. Allergic rhinitis due to dust ursodiol (ACTIGALL) Take 1 Cap 60 Cap 1 04/25/2019 Active 300 MG Oral Cap by mouth TWO TIMES DAILY WITH MEALS. OMEPRAZOLE PO Take by 0 Active mouth. ondansetron Take 4 mg by 0 Active (ZOFRAN) 4 MG Oral mouth EVERY Tab EIGHT HOURS NEEDED for Nausea/Vomit ing. Osimertinib Take by 0 Active Mesylate (TAGRISSO mouth. PO) hydrOXYzine pamoate Take 1 Cap 120 Cap 4 04/13/2016 Discontinued (VISTARIL) 25 MG by mouth 9 Oral EVERY SIX CapIndications: HOURS Itch NEEDED (itch). atorvastatin Take 1 Tab 90 Tab 3 10/08/2018 Discontinued (LIPITOR) 40 MG by mouth 9 (Provider Oral Tab DAILY. Discontinued) Doxylamine Take 0.5 0 Discontinued Succinate, Sleep, Tabs by 9 (Provider (UNISOM PO) mouth EVERY Discontinued) BEDTIME. augmented APPLY DAILY 50 g 5 04/01/2019 Discontinued betamethasone ONTO SKIN 9 dipropionate NEEDED (DIPROLENE-AF) 0.05 % Apply externally CreamIndications: Itch gabapentin Take 1-3 270 Cap 0 04/25/2019 Discontinued (NEURONTIN) 300 MG Caps by 9 (Provider Oral Cap mouth EVERY Discontinued) BEDTIME. documented as of this encounter (statuses as of 05/06/2019) Active Problems Problem Noted Date Lung cancer metastatic to brain 05/06/2019 Allergic rhinitis due to dust 09/11/2014 Allergic rhinitis due to pollen 09/11/2014 Mixed hyperlipidemia 03/10/2008 History of Migraine Headaches 03/10/2008 documented as of this encounter (statuses as of 05/06/2019) Resolved Problems Problem Noted Date Resolved Date Finger pain, right 07/21/2015 05/06/2019 Trigger finger of right hand 07/21/2015 05/06/2019 Seasonal allergies 03/10/2008 09/11/2014 documented as of this encounter (statuses as of 05/06/2019) Immunizations Name Administration Dates Next Due Depo [...] Sign Reading Time Taken Comments Blood Pressure 140/80 05/06/2019 2:20 PM EDT Pulse 79 05/06/2019 2:20 PM EDT Temperature 37.1 05/06/2019 2:20 PM EDT C (98.7 F) Respiratory Rate - - Oxygen Saturation 98% 05/06/2019 2:20 PM EDT Inhaled Oxygen Concentration - - Weight 50.3 kg (111 lb) 05/06/2019 2:20 PM EDT Height 157.5 cm (5' 2") 05/06/2019 2:20 PM EDT Body Mass Index 20.3 05/06/2019 2:20 PM EDT documented in this encounter Patient Instructions Patient InstructionsMatthew Ibarra MD - 05/06/2019 2:20 PM EDTStop atorvastatin and gabapentin Use oxycodone as needed instead of the pain patch Ok to use lorazepam as needed nausea or sleep Ankle swelling is side effects From the steroid dexamethasone elevate legs and avoid sodium in the dietElectronically signed by Matthew Ibarra MD at 2018 2:35 PM EDT documented in this encounter Progress Notes Matthew Ibarra MD - 05/06/2019 2:20 PM EDT PATIENT: Gillian Han : 1950 DATE OF SERVICE: 05/06/2019 CHIEF COMPLAINT: Chief Complaint Patient presents with Transitional Care Management pt is here for TCM for Lung Cancer. pt has started chemo Subjective HISTORY OF PRESENT ILLNESS: Gillian Han is a 68-y.o. female. 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 She is getting chemo and radiation She uses as needed oxycodone orally and tried pain patch duragesic and her boyfriend felt she was zombie and overly sedated on this now she uses as needed oxycodone only She asks about need to other medications like actigal and atorvastatin and gabapentin She denies any new symptoms Past Medical History: Diagnosis Date Allergic rhinitis due to dust 03/10/2008 Allergic rhinitis due to pollen 03/10/2008 History of Migraine Headaches 03/10/2008 Hyperlipidemia 03/10/2008 Postmenopausal Family History Problem Relation Age of Onset Hypertension Father Current Outpatient Medications Medication Sig acetaminophen (PAIN & FEVER EXTRA STRENGTH) 500 MG Oral Tab Take 1 Tab by mouth EVERY SIXHOURS NEEDED for Pain. cetirizine (ZYRTEC) 10 MG Oral Tab Take 1 Tab by mouth DAILY. fluticasone (FLONASE) 50 MCG/ACT Nasal Suspension SPRAY 2 SPRAY IN NOSE DAILY loratadine (CLARITIN,ALAVERT) 10 MG Oral Tab Take 1 Tab by mouth DAILY. OMEPRAZOLE PO Take by mouth. ondansetron (ZOFRAN) 4 MG Oral Tab Take 4 mg by mouth EVERY EIGHT HOURS NEEDED for Nausea/Vomiting. Osimertinib Mesylate (TAGRISSO PO) Take by mouth. ursodiol (ACTIGALL) 300 MG Oral Cap Take [...] file Gets together: Not on file Attends yarsanism service: Not on file Active member of [...] Asked Weight Concern No Social History Narrative [place] immigrant Lives in [facility] with daughter Retired from restaurant business ROS intermtittent nausea controlled with as needed zofran and lorazepam she is on proton pump inhibitor and no gastroesophageal reflux disease symptoms She had lost weight now has regained 3 pounds last week Wt Readings from Last 3 Encounters: 05/06/19 111 lb (50.3 kg) 04/02/19 114 lb (51.7 kg) 03/04/19 114 lb (51.7 kg) no falls no focal neuro symptoms Objective PHYSICAL EXAM: VITALS: BP 140/80 (BP Location: Left arm, Patient Position: Sitting) | Pulse 79 | Temp 98.7 F(37.1 C) | Ht 5' 2" (1.575 m) | Wt 111 lb (50.3 kg) | SpO2 98% | BMI 20.30 kg/m Body mass index is 20.3 kg/m. Physical Exam no apparent distress Mental status exam; she is alert, orient to time, person and place. Normal thought content, speech, affect, mood and dress are noted. Cranial nerves are normal. Fundi are normal with sharp disc margins, no papilledema, hemorrhages or exudates noted. MARY. EOM's intact. Neck supple. No cranial or carotid bruits. Good carotid upstroke. DTR's, motor power and sensation normal and symmetric. Babinski sign absent. Mental status normal. Gait and station normal. Cerebellar function is normal. There is 1+bilateral ankle edema with no tenderness to palpation, erythema, or heat to the touch. I spent 40 minutes with the patient, greater than half of this time in direct face to face counseling regarding the condition and the plan of care. ASSESSMENT / IMPRESSION: ICD-9-CM ICD-10-CM 1. Polypharmacy stop atorvastatin and gabapentin and continue actigal V58.69 Z79.899 2. Mixed hyperlipidemia 272.2 E78.2 3. Lung cancer metastatic to brain (HCC) follow up oncology [facility] Dr Rosenthal 162.9 C34.90 198.3 C79.31 4. Ankle edema reassurance due to decadron 719.07 M25.473 5. Joint pain following chemotherapy oxycodone as needed 719.40 M25.50 338.19 G89.18 Patient Instructions Stop atorvastatin and gabapentin Use oxycodone as needed instead of the pain patch Ok to use lorazepam as needed nausea or sleep Ankle swelling is side effects From the steroid dexamethasone elevate legs and avoid sodium in the diet : Matthew Ibarra MD 05/06/2019 14:37 documented in this encounter Plan of Treatment Health Maintenance Due Date Last Done Comments [...] filedocumented in this encounter Visit Diagnoses Diagnosis Polypharmacy - Primary Issue of repeat prescriptions Mixed hyperlipidemia Lung cancer metastatic to brain (HCC) Ankle edema Edema Joint pain following chemotherapy documented in this encounter Insurance Payer Benefit Plan / Subscriber ID Effective Dates Phone Address Type Group MEDICARE MEDICARE PART A xxxxxxxxxxx 2015-Present Medicare & B MEDICAID [facility] xxxxxxxx 2017-Present Medicaid [place] MEDICAID documented as of this encounter
[2019-06-12 20:21] LABS: Hematocrit 37 % (35-47); Hemoglobin 12.7 g/dL (12.0-16.0); Mean Corpuscular HGB Conc 34 g/dL (31-36); Mean Corpuscular Hemoglobin 31 pg (27-31); Mean Corpuscular Volume 92 fL (80-97); Mean Platelet Volume 6.9 fL (7.4-10.4); Platelet Count 218 10^3/uL (150-450); Red Blood Count 4.04 10^6 /uL (3.70-4.87); Red Cell Distribution Width 16 % (10-15); White Blood Count 6.2 10^3/uL (3.5-10.8)
[2019-06-12 20:39] LABS: Albumin 3.1 g/dL (3.2-5.2); Albumin/Globulin Ratio 1.2 (1-3); BUN/Creatinine Ratio 28.3 (8-20); Calcium 8.3 mg/dL (8.6-10.3); EGFR African American 120.3 (>60); EGFR Non-African American 99.4 (>60); Globulin 2.5 g/dL (2-4); Potassium 3.6 mmol/L (3.5-5.0); Total Bilirubin 0.6 mg/dL (0.2-1.0); Total Protein 5.6 g/dL (6.4-8.9)
[2019-06-12 21:12] LABS: ABS Basophils 0.1 10^3/ul (0-0.2); ABS Eosinophils 0.1 10^3/ul (0-0.6); ABS Lymphocytes 1.2 10^3/ul (1.0-4.8); ABS Monocytes 0.4 10^3/ul (0-0.8); ABS Neutrophils 4.4 10^3/ul (1.5-7.7); Eosinophil % 1.2 %; Lymphocyte % 20.2 %; Nucleated Red Blood Cells % 0.1
[2019-06-12] MEDS ORDERED: NS 0.9% 1000 ML** 1,000 ML IV ONE (21:24)
[2019-06-12 22:32] LABS: Urine Appearance Clear; Urine Bilirubin Negative (Negative); Urine Blood Negative (Negative); Urine Color Straw; Urine Glucose Negative (Negative); Urine Ketones Negative (Negative); Urine Nitrite Negative (Negative); Urine Protein Negative (Negative); Urine Specific Gravity 1.006 (1.010-1.030); Urine Urobilinogen Negative (Negative)
[2019-06-13 00:17] VITALS: BP 143/70
== END 2019-06-13 00:05 | disposition home or self-care (01) ==
LOC: ED 19:18
DX: R41.82 Altered mental status, unspecified (principal); C34.90 Malignant neoplasm of unspecified part of unspecified bronchus or lung; C79.31 Secondary malignant neoplasm of brain; C79.51 Secondary malignant neoplasm of bone; Z88.1 Allergy status to other antibiotic agents
CPT/HCPCS: 36415; 80053; 81003; 85025; 93005; 96360; 99284

== ENCOUNTER 2019-06-13 17:02 | Inpatient (IN) | payer MEDICARE, MEDICAID ==
[2019-06-13] MEDS ORDERED: Hydrocortisone INJ* 100 MG VIAL IV ONE (17:53)
[2019-06-13] MEDS ORDERED: Piperacillin/Tazobac ADVAN(*) 3.375 GM in NS 0.9% 100 ML* 100 ML IVPB ONE (17:53)
[2019-06-13] MEDS ORDERED: LORazepam TAB(*) 0.5 MG PO PRN (17:54)
[2019-06-13] MEDS ORDERED: Ondansetron TAB* 4 MG PO PRN (17:54)
[2019-06-13] MEDS ORDERED: Zosyn per Pharmacy* NOTE FOLLOW UP SCH (18:00)
[2019-06-13] MEDS ORDERED: NS 0.9% 1000 ML** 1,000 ML IV SCH (18:00)
[2019-06-13] MEDS ORDERED: Iohexol 300* (CONTRAST) 10 ML SDV IV ONE (19:04)
[2019-06-13] MEDS: Enoxaparin(*) 40 MG/0.4 ML SYR SUBCUT SCH (19:51)
[2019-06-13] MEDS: Morphine INJ* 2 MG/ML 1 ML SYRINGE (TWO MG - NEW SYRINGE VERSION) IV PRN (21:26)
[2019-06-14] MEDS ORDERED: ZOSYN 3.375 GM Q8H per EXTENDED INFUSION IVPB SCH ×2
[2019-06-14] MEDS: Piperacillin/Tazobac ADVAN(*) 3.375 GM in NS 0.9% 100 ML* 100 ML IVPB SCH ×3 (00:34→18:00)
[2019-06-14] MEDS: Hydrocortisone INJ* 100 MG VIAL IV SCH ×3 (00:34→20:21)
[2019-06-14] MEDS ORDERED: Hydrocortisone INJ* 100 MG VIAL IV SCH (02:00)
[2019-06-14 05:02] LABS: ABS Lymphocytes 1.2 10^3/ul (1.0-4.8); ABS Monocytes 0.3 10^3/ul (0-0.8); ABS Neutrophils 4.9 10^3/ul (1.5-7.7); Hematocrit 33 % (35-47); Hemoglobin 11.4 g/dL (12.0-16.0); Mean Corpuscular HGB Conc 35 g/dL (31-36); Mean Corpuscular Hemoglobin 32 pg (27-31); Mean Corpuscular Volume 91 fL (80-97); Mean Platelet Volume 6.7 fL (7.4-10.4); Platelet Count 222 10^3/uL (150-450); Red Blood Count 3.56 10^6 /uL (3.70-4.87); Red Cell Distribution Width 16 % (10-15); White Blood Count 6.4 10^3/uL (3.5-10.8)
[2019-06-14] MEDS: Morphine INJ* 2 MG/ML 1 ML SYRINGE (TWO MG - NEW SYRINGE VERSION) IV PRN ×4 (05:17→20:21)
[2019-06-14 05:20] LABS: Albumin/Globulin Ratio 1.4 (1-3); BUN/Creatinine Ratio 24.5 (8-20); EGFR Non-African American 125.6 (>60); Globulin 2.2 g/dL (2-4); Potassium 3.1 mmol/L (3.5-5.0); Total Bilirubin 0.7 mg/dL (0.2-1.0); Total Protein 5.2 g/dL (6.4-8.9)
[2019-06-14] MEDS: Pantoprazole TAB * 40 MG TAB PO SCH (08:54)
--- NOTE | 2019-06-14 09:29 | PN ---
Progress Note - Progress Note Date of Service: 06/14/19 SOAP: Subjective: feels better than yesterday. still w left flank, lower back pain. +headaches and dizziness. Objective: Vital Signs Temp Pulse Resp BP Pulse Ox 98.2 F 82 22 112/55 95 06/14/19 03:14 06/14/19 03:14 06/14/19 08:54 06/14/19 03:14 06/14/19 03:14 sitting up in nad perr eomi op dry cta bl s1 s2 nl soft mild ttp over far left flank and lower back LE edema improved dry skin on legs consistent with dermatitis from osermitinib A+O x 3 this am, grossly nonfocal though did not ambulate Laboratory Results - last 24 hr 06/14/19 06/14/19 04:53 04:53 WBC 6.4 RBC 3.56 L Hgb 11.4 L Hct 33 L MCV 91 MCH 32 H MCHC 35 RDW 16 H Plt Count 222 MPV 6.7 L Neut % (Auto) 77.0 Lymph % (Auto) 18.0 [place] % (Auto) 4.4 Eos % (Auto) 0.0 Baso % (Auto) 0.6 Absolute Neuts (auto) 4.9 Absolute Lymphs (auto) 1.2 Absolute Monos (auto) 0.3 Absolute Eos (auto) 0.0 Absolute Basos (auto) 0.0 Absolute Nucleated RBC 0.0 Nucleated RBC % 0.0 Sodium 135 Potassium 3.1 L Chloride 105 Carbon Dioxide 25 Anion Gap 5 BUN 12 Creatinine 0.49 L Est GFR ( Amer) 152.0 Est GFR (Non-Af Amer) 125.6 BUN/Creatinine Ratio 24.5 H Glucose 153 H Calcium 8.0 L Total Bilirubin 0.70 AST 14 ALT 18 Alkaline Phosphatase 62 Total Protein 5.2 L Albumin 3.0 L Globulin 2.2 Albumin/Globulin Ratio 1.4 Acetaminophen (Tylenol Tab*) 650 mg PO Q4H PRN PRN Reason: PAIN-MILD/TEMP >/= 100.4 Enoxaparin Sodium (Lovenox(*)) 40 mg SUBCUT Q24H [facility] Last Admin: 06/13/19 19:51 Dose: 40 mg Hydrocortisone Sodium Succinate (Solu-Cortef*) 50 mg IV Q8H [facility] Last Admin: 11/16/19 08:55 Dose: 50 mg Piperacillin Sod/Tazobactam (Sod 3.375 gm/ Sodium Chloride) 100 mls @ 25 mls/ hr IVPB Q8H [facility] Last Admin: 06/14/19 08:59 Dose: 25 mls/hr Potassium Chloride/Sodium Chloride (Ns 0.9% W/ 40 Meq Kcl 1000 Ml*) 1,000 mls @ 100 mls/hr IV PER RATE [facility] Lorazepam (Ativan Tab(*)) 0.5 mg PO Q8H PRN PRN Reason: AGITATION/ANXIETY Morphine Sulfate (Morphine Inj (Syringe))*) 2 mg IV Q4H PRN PRN Reason: PAIN - SEVERE Last Admin: 06/14/19 08:54 Dose: 2 mg Ondansetron HCl (Zofran Tab*) 4 mg PO Q6H PRN PRN Reason: NAUSEA/VOMITING Oxycodone/Acetaminophen (Percocet 5/325 Tab*) 1 tab PO Q4H PRN PRN Reason: PAIN - MODERATE Pantoprazole Sodium (Protonix Tab*) 40 mg PO DAILY [facility] Last Admin: 06/14/19 08:54 Dose: 40 mg Pharmacy Consult (Zosyn Per Pharmacy*) 1 note FOLLOW UP .ZOSYN PER PHARMACY [facility] Assessment: 68 yo 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 I suspect that her lower back/left flank pain is referred from her L1 lesion and would like to get a lumbar spine MRI, likely Sunday. There is no cord concern right now so I do not think we need to do this urgently over the weekend, though should this change we will re- evaluate. In terms of her fevers, she has defervesced on stress dose steroids and zosyn. I will check a CXR (with AMS she is an aspiration risk). She is hemodynamically stable and looks markedly improved today and so I will decrease her steroids. Plan: -decrease steroids to bid today and if continues to be stable will go back to home steroid dose tomorrow -cont to hold fentanyl, suspect that this is causing over sedation, long acting morphine may be better option -CXR PA/LAT -cont zosyn -cont to hold osimertinib until cultures neg x 48 hrs -MRI brain and LS spine early next week -change fluids with NS with 40 meq kcl -check magnesium -lovenox dvt prophylaxis
[2019-06-14 09:33] LABS: Magnesium 2.2 mg/dL (1.9-2.7)
[2019-06-14] MEDS: NS 0.9% w/ 40 Meq KCL 1000 ML* 1,000 ML IV SCH (12:09)
[2019-06-14] MEDS: Enoxaparin(*) 40 MG/0.4 ML SYR SUBCUT SCH (20:21)
[2019-06-14] MEDS: Acetaminophen TAB* 325 MG PO PRN (21:47)
[2019-06-15] MEDS: Piperacillin/Tazobac ADVAN(*) 3.375 GM in NS 0.9% 100 ML* 100 ML IVPB SCH ×3 (00:45→17:53)
[2019-06-15] MEDS: NS 0.9% w/ 40 Meq KCL 1000 ML* 1,000 ML IV SCH ×2 (02:03→13:13)
[2019-06-15 05:00] LABS: ABS Lymphocytes 1.1 10^3/ul (1.0-4.8); ABS Monocytes 0.5 10^3/ul (0-0.8); ABS Neutrophils 3.4 10^3/ul (1.5-7.7); Eosinophil % 0.9 %; Hematocrit 31 % (35-47); Hemoglobin 10.6 g/dL (12.0-16.0); Lymphocyte % 22.7 %; Mean Corpuscular HGB Conc 34 g/dL (31-36); Mean Corpuscular Hemoglobin 31 pg (27-31); Mean Corpuscular Volume 92 fL (80-97); Mean Platelet Volume 7.2 fL (7.4-10.4); Nucleated Red Blood Cells % 0.1; Platelet Count 236 10^3/uL (150-450); Red Blood Count 3.37 10^6 /uL (3.70-4.87); Red Cell Distribution Width 16 % (10-15); White Blood Count 5.1 10^3/uL (3.5-10.8)
[2019-06-15 05:15] LABS: BUN/Creatinine Ratio 21.2 (8-20); Calcium 7.8 mg/dL (8.6-10.3); EGFR African American 141.9 (>60); EGFR Non-African American 117.3 (>60); Magnesium 2.1 mg/dL (1.9-2.7); Potassium 3.5 mmol/L (3.5-5.0)
[2019-06-15] MEDS: Morphine INJ* 2 MG/ML 1 ML SYRINGE (TWO MG - NEW SYRINGE VERSION) IV PRN (06:35)
--- NOTE | 2019-06-15 08:27 | PN ---
Progress Note - Progress Note Date of Service: 06/15/19 SOAP: Subjective: pain worse today. mentally very clear. still w headaches and dizziness Objective: Vital Signs Temp Pulse Resp BP Pulse Ox 98.5 F 70 21 137/65 97 06/15/19 07:23 06/15/19 07:23 06/15/19 07:23 06/15/19 07:23 06/15/19 07:23 lying flat appearing comfortable but rates pain 8/10 perr eomi op moist CTA ant s1 s2 nl soft nt +BS TTP over lower back and left hip A+O x 3, did not ambulate intact strength Laboratory Results - last 24 hr 06/14/19 06/15/19 06/15/19 04:53 04:23 04:23 WBC 5.1 RBC 3.37 L Hgb 10.6 L Hct 31 L MCV 92 MCH 31 MCHC 34 RDW 16 H Plt Count 236 MPV 7.2 L Neut % (Auto) 66.2 Lymph % (Auto) 22.7 [place] % (Auto) 9.7 Eos % (Auto) 0.9 Baso % (Auto) 0.5 Absolute Neuts (auto) 3.4 Absolute Lymphs (auto) 1.1 Absolute Monos (auto) 0.5 Absolute Eos (auto) 0.0 Absolute Basos (auto) 0.0 Absolute Nucleated RBC 0.0 Nucleated RBC % 0.1 Sodium 135 139 Potassium 3.1 L 3.5 Chloride 105 110 Carbon Dioxide 25 25 Anion Gap 5 4 BUN 12 11 Creatinine 0.49 L 0.52 Est GFR ( Amer) 152.0 141.9 Est GFR (Non-Af Amer) 125.6 117.3 BUN/Creatinine Ratio 24.5 H 21.2 H Glucose 153 H 118 H Calcium 8.0 L 7.8 L Magnesium 2.2 2.1 Total Bilirubin 0.70 AST 14 ALT 18 Alkaline Phosphatase 62 Total Protein 5.2 L Albumin 3.0 L Globulin 2.2 Albumin/Globulin Ratio 1.4 Acetaminophen (Tylenol Tab*) 650 mg PO Q4H PRN PRN Reason: PAIN-MILD/TEMP >/= 100.4 Last Admin: 06/14/19 21:47 Dose: 650 mg Enoxaparin Sodium (Lovenox(*)) 40 mg SUBCUT Q24H [facility] Last Admin: 06/14/19 20:21 Dose: 40 mg Hydrocortisone Sodium Succinate (Solu-Cortef*) 50 mg IV Q12H [facility] Last Admin: 06/14/19 20:21 Dose: 50 mg Piperacillin Sod/Tazobactam (Sod 3.375 gm/ Sodium Chloride) 100 mls @ 25 mls/ hr IVPB Q8H [facility] Last Admin: 06/15/19 00:45 Dose: 25 mls/hr Potassium Chloride/Sodium Chloride (Ns 0.9% W/ 40 Meq Kcl 1000 Ml*) 1,000 mls @ 100 mls/hr IV PER RATE [facility] Last Admin: 06/15/19 02:03 Dose: 100 mls/hr Lorazepam (Ativan Tab(*)) 0.5 mg PO Q8H PRN PRN Reason: AGITATION/ANXIETY Morphine Sulfate (Morphine Inj (Syringe))*) 2 mg IV Q4H PRN PRN Reason: PAIN - SEVERE Last Admin: 06/15/19 06:35 Dose: 2 mg Morphine Sulfate (Ms Contin(*)) 15 mg PO Q12H [facility] Ondansetron HCl (Zofran Tab*) 4 mg PO Q6H PRN PRN Reason: NAUSEA/VOMITING Oxycodone/Acetaminophen (Percocet 5/325 Tab*) 1 tab PO Q4H PRN PRN Reason: PAIN - MODERATE Pantoprazole Sodium (Protonix Tab*) 40 mg PO DAILY [facility] Last Admin: 06/14/19 08:54 Dose: 40 mg Pharmacy Consult (Zosyn Per Pharmacy*) 1 note FOLLOW UP .ZOSYN PER PHARMACY [facility] Assessment: 68 yo 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 I suspect that her lower back/left flank pain is referred from her L1 lesion, though today she also localizes over left anterior iliac crest. She will likely require palliative RT. I would like to get an MRI of her LS spine and pelvis in the AM. I am also going to start her on long acting morphine (over sedated with fentanyl). In terms of her fevers, she has defervesced on stress dose steroids and zosyn. No clear source to date. Plan: -decrease steroids home steroid dose todaoy -cont zosyn for now Pain -cont to hold fentanyl, suspect that this is causing over sedation -start MS ER 15 mg po bid -cont PRN IV morphine severe pain, oxycodone moderate pain Cancer: If culture remain negative tomorrow will start osimertinib again -cont NS with 40 meq kcl -lovenox dvt prophylaxis full code
[2019-06-15] MEDS: Morphine TAB Extended Release (*) 15 MG TAB.ER PO SCH ×2 (09:10→21:20)
[2019-06-15] MEDS: Hydrocortisone INJ* 100 MG VIAL IV SCH ×2 (09:11→21:20)
[2019-06-15] MEDS: Pantoprazole TAB * 40 MG TAB PO SCH (09:11)
[2019-06-15] MEDS: Enoxaparin(*) 40 MG/0.4 ML SYR SUBCUT SCH (17:55)
[2019-06-15] MEDS: oxyCODONE/Acetamin 5/325 MG* TAB PO PRN (21:12)
[2019-06-16] MEDS: NS 0.9% w/ 40 Meq KCL 1000 ML* 1,000 ML IV SCH ×2 (00:11→13:37)
[2019-06-16] MEDS: Piperacillin/Tazobac ADVAN(*) 3.375 GM in NS 0.9% 100 ML* 100 ML IVPB SCH ×3 (01:06→17:30)
[2019-06-16] MEDS: oxyCODONE/Acetamin 5/325 MG* TAB PO PRN ×2 (02:06→18:29)
[2019-06-16 05:48] LABS: ABS Lymphocytes 1.2 10^3/ul (1.0-4.8); ABS Monocytes 0.5 10^3/ul (0-0.8); ABS Neutrophils 3.3 10^3/ul (1.5-7.7); Eosinophil % 0.3 %; Hematocrit 31 % (35-47); Hemoglobin 10.8 g/dL (12.0-16.0); Lymphocyte % 24.4 %; Mean Corpuscular HGB Conc 35 g/dL (31-36); Mean Corpuscular Hemoglobin 32 pg (27-31); Mean Corpuscular Volume 91 fL (80-97); Mean Platelet Volume 6.9 fL (7.4-10.4); Nucleated Red Blood Cells % 0.1; Platelet Count 247 10^3/uL (150-450); Red Blood Count 3.38 10^6 /uL (3.70-4.87); Red Cell Distribution Width 16 % (10-15)
[2019-06-16 06:07] LABS: Albumin 2.8 g/dL (3.2-5.2); Albumin/Globulin Ratio 1.3 (1-3); BUN/Creatinine Ratio 18.4 (8-20); Calcium 8.1 mg/dL (8.6-10.3); EGFR Non-African American 125.6 (>60); Globulin 2.2 g/dL (2-4); Potassium 3.6 mmol/L (3.5-5.0); Total Bilirubin 0.6 mg/dL (0.2-1.0)
[2019-06-16] MEDS: Morphine TAB Extended Release (*) 15 MG TAB.ER PO SCH ×2 (08:57→20:37)
[2019-06-16] MEDS: Pantoprazole TAB * 40 MG TAB PO SCH (08:57)
[2019-06-16] MEDS: Hydrocortisone INJ* 100 MG VIAL IV SCH (08:58)
[2019-06-16] MEDS: Acetaminophen TAB* 325 MG PO PRN (08:59)
[2019-06-16] MEDS ORDERED: Gadoteridol* (CONTRAST) 279.3 MG/ML 10 ML IV ONE (10:21)
--- NOTE | 2019-06-16 16:31 | PN ---
Progress Note - Progress Note Date of Service: 06/16/19 SOAP: Subjective: [Feeling ok today. She feels that her pain is relatively well controlled. She is comfortable at rest, gets sudden increases in pain but when she receives her oxycodone the pain improves for several hours. She seems to be functioning well from a mentation perspective on the MS Contin.] Objective: [ Vital Signs: Temp Pulse Resp BP Pulse Ox 98 F 67 18 138/65 98 06/16/19 12:20 06/16/19 12:20 06/16/19 12:20 06/16/19 12:20 06/16/19 12:20 Acetaminophen (Tylenol Tab*) 650 mg PO Q4H PRN PRN Reason: PAIN-MILD/TEMP >/= 100.4 Last Admin: 06/16/19 08:59 Dose: 650 mg Dexamethasone (Decadron Tab*) 4 mg PO BID [facility] Enoxaparin Sodium (Lovenox(*)) 40 mg SUBCUT Q24H [facility] Last Admin: 06/15/19 17:55 Dose: 40 mg Piperacillin Sod/Tazobactam (Sod 3.375 gm/ Sodium Chloride) 100 mls @ 25 mls/ hr IVPB Q8H [facility] Last Admin: 06/16/19 08:57 Dose: 25 mls/hr Lorazepam (Ativan Tab(*)) 0.5 mg PO Q8H PRN PRN Reason: AGITATION/ANXIETY Morphine Sulfate (Morphine Inj (Syringe))*) 2 mg IV Q4H PRN PRN Reason: PAIN - SEVERE Last Admin: 06/15/19 06:35 Dose: 2 mg Morphine Sulfate (Ms Contin(*)) 15 mg PO Q12H [facility] Last Admin: 06/16/19 08:57 Dose: 15 mg Non-Formulary Medication (Osimertinib Mesylate [Tagrisso]) 80 mg PO DAILY [facility] Ondansetron HCl (Zofran Tab*) 4 mg PO Q6H PRN PRN Reason: NAUSEA/VOMITING Oxycodone/Acetaminophen (Percocet 5/325 Tab*) 1 tab PO Q4H PRN PRN Reason: PAIN - MODERATE Last Admin: 06/16/19 02:06 Dose: 1 tab Pantoprazole Sodium (Protonix Tab*) 40 mg PO DAILY [facility] Last Admin: 06/16/19 08:57 Dose: 40 mg Pharmacy Consult (Zosyn Per Pharmacy*) 1 note FOLLOW UP .ZOSYN PER PHARMACY [facility] Laboratory Results - last 24 hr 06/16/19 06/16/19 05:25 05:25 WBC 5.0 RBC 3.38 L Hgb 10.8 L Hct 31 L MCV 91 MCH 32 H MCHC 35 RDW 16 H Plt Count 247 MPV 6.9 L Neut % (Auto) 65.1 Lymph % (Auto) 24.4 [place] % (Auto) 9.8 Eos % (Auto) 0.3 Baso % (Auto) 0.4 Absolute Neuts (auto) 3.3 Absolute Lymphs (auto) 1.2 Absolute Monos (auto) 0.5 Absolute Eos (auto) 0.0 Absolute Basos (auto) 0.0 Absolute Nucleated RBC 0.0 Nucleated RBC % 0.1 Sodium 136 Potassium 3.6 Chloride 106 Carbon Dioxide 24 Anion Gap 6 BUN 9 Creatinine 0.49 L Est GFR ( Amer) 152.0 Est GFR (Non-Af Amer) 125.6 BUN/Creatinine Ratio 18.4 Glucose 127 H Calcium 8.1 L Total Bilirubin 0.60 AST 13 ALT 15 Alkaline Phosphatase 57 Total Protein 5.0 L Albumin 2.8 L Globulin 2.2 Albumin/Globulin Ratio 1.3 Exam: Gen: Well appearing 68 yo female in NAD, accompanied by her son who occasionally helps with translation HEENT: MMM CV: RRR, no m/r/g Resp: CTA, no w/c/r Abd: soft and nonTTP Ext: trace edema] [Assessment: 68 yo 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 Her pain appears to be well controlled with MS Contin and prn oxycodone without causing severe sedation. Regarding her fever, she has been afebrile since admission and cultures have been negative. MRI confirms L1 compression fx without significant retropulsion and appears pathologic. 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 Plan: L1 compression fx: - cont MS Contin 15 mg bid and prn oxycodone - resume oral dexamethasone but increase to 4mg bid over the 4mg daily she has been taking at home as a part of her taper from WBRT - will review case with Dr Carnes and consider palliative RT to the L1 lesion Fever - cont zosyn for now, but no indication for cont abx at dc NSCLC resume osimertinib -lovenox dvt prophylaxis full code Dispo: anticipate dc home tomorrow]
[2019-06-16] MEDS: Enoxaparin(*) 40 MG/0.4 ML SYR SUBCUT SCH (17:28)
[2019-06-16] MEDS: Dexamethasone TAB* 4 MG PO SCH (20:37)
[2019-06-17] MEDS: Piperacillin/Tazobac ADVAN(*) 3.375 GM in NS 0.9% 100 ML* 100 ML IVPB SCH ×2 (01:36→09:44)
[2019-06-17] MEDS: oxyCODONE/Acetamin 5/325 MG* TAB PO PRN (03:22)
[2019-06-17] MEDS ORDERED: Osimertinib Mesylate [Tagrisso] 80 MG PO SCH (09:00)
[2019-06-17] MEDS: Morphine TAB Extended Release (*) 15 MG TAB.ER PO SCH (09:44)
[2019-06-17] MEDS: Pantoprazole TAB * 40 MG TAB PO SCH (09:46)
[2019-06-17] MEDS: Dexamethasone TAB* 4 MG PO SCH (09:46)
[2019-06-17 12:13] VITALS: BP 137/58
--- NOTE | 2019-06-17 13:16 | DS ---
- Discharge Summary Admission Date: 06/13/19 Discharge Date: 06/17/19 Discharge Diagnosis: 1. Metastatic NSCLC, EGFR+: resume osimertinib with plan for palliative RT to L1 compression fracture 2. Pain: stable with MS Contin 15 mg PO BID and PRN oxycodone 3. Insomnia: stable with ativan PRN Discharge Medications: Medication Instructions Recorded Confirmed Type LORazepam TAB(*) [Ativan 0.5 MG 0.5 mg PO Q8H PRN 05/28/19 06/13/19 History TAB (*)] Omeprazole CAP (NF) [Prilosec CAP* 20 mg PO DAILY 05/28/19 06/13/19 History 20 MG] Ondansetron TAB* [Zofran 4 MG Tab*] 4 mg PO Q6H PRN 06/12/19 06/13/19 History Osimertinib Mesylate [Tagrisso] 80 mg PO DAILY 06/12/19 06/13/19 History oxyCODONE TAB* [Roxycodone TAB 5 5 mg PO Q4H PRN 06/12/19 06/13/19 History mg*] Acetaminophen TAB* [Tylenol TAB*] 650 mg PO Q4H PRN tab 06/17/19 Rx Dexamethasone TAB* [Decadron TAB*] 4 mg PO BID tab 06/17/19 Rx Furosemide TAB* [Lasix TAB*] 20 mg PO EVERY OTHER DAY #15 tab 06/17/19 Rx Morphine TAB Extended Rel(*) [Ms 15 mg PO Q12H #60 tab.er MDD 30 mg 06/17/19 Rx Contin(*)] (2 tabs) Potassium Chlor TAB* [Potassium 20 meq PO EVERY OTHER DAY #15 06/17/19 Rx Chlor TAB 20 MEQ*] tab.er Condition: Good Disposition: Home Activity: Per PT, low impact and no heavy lifting or twisting Diet: as tolerated Hospital Course: Please see admission note for full H&P, however, briefly, Ms. Han is well known to our service due to her recent diagnosis of metastatic EGFR+ NSCLC s/p WBRT and started on Osimertinib 04/30. She presented to the office on 06/13 with new onset severe lethargy and fever. She was admitted for work-up and broad spectrum antibiotics. Her chemo was held. A CT of the abd. and pelvis showed only concern for pathologic fracture @ L1 and no acute findings. A chest x-ray on 06/14 was negative for PNA. She did have a temp. of 100.4F on at approx. 1500, and no other fevers throughout her stay. Because of the L1 lesion on CT further imaging of her brain, L-spine, and pelvis via MRI was obtained on 06/16. This revealed diffuse metastatic disease and DJD and subacute compression fracture of L1, likely pathologic. Her brain MRI was stable. She has been feeling well overall and the initial lethargy is likely related to excessive pain medications. All of her cultures have been negative. At this time she is stable for discharge and very motivated to go home. She has accepted [facility] referral for a med check and PT, however has a declined a hospital bed (though I suspect the need to reposition will be necessary in the near future). On the day of discharge Ms. Han feel well overall. Her pain has been controlled with MS Contin and she has not been overly sedated. She is ambulating short distances. She has no further signs of infection and received a full 4 days of IV Zosyn, therfore will no growth on cultures she will be discharged home off antibiotics. Her osimertinib was resumed yesterday, 06/16, and she will continue this daily. Due to severe LE edema in the past I have recommended she resume lasix every other day (this was held during the admission) with potassium supplement on the days she takes this. Her steroids were increased to stress doses on admission and therefore we will cont. the current taper of dex. @ 4mg PO BID. Plan of care reviewed with pt. and family. Follow-up: - [facility] 06/19 1200 with Simulation for RT to L1 compression fracture - [facility] 06/24/19 1500 with repeat labs
== END 2019-06-17 14:35 | disposition home health service (06) | DRG 181 ==
LOC: MED 17:50
PROVIDERS: ADMIT Internal Medicine Hematology & Oncology; ATTEND Internal Medicine Hematology & Oncology
DX: C34.90 Malignant neoplasm of unspecified part of unspecified bronchus or lung (principal); C79.51 Secondary malignant neoplasm of bone; M48.56XA Collapsed vertebra, not elsewhere classified, lumbar region, initial encounter for fracture; R50.9 Fever, unspecified; G89.3 Neoplasm related pain (acute) (chronic); G47.00 Insomnia, unspecified; M51.36 Other intervertebral disc degeneration, lumbar region; E78.00 Pure hypercholesterolemia, unspecified; L27.1 Localized skin eruption due to drugs and medicaments taken internally; T50.995A Adverse effect of other drugs, medicaments and biological substances, initial encounter; Y92.9 Unspecified place or not applicable; Z79.1 Long term (current) use of non-steroidal anti-inflammatories (NSAID); Z79.891 Long term (current) use of opiate analgesic; Z79.899 Other long term (current) drug therapy; Z87.891 Personal history of nicotine dependence; Z80.0 Family history of malignant neoplasm of digestive organs
CPT/HCPCS: 36415; 70553; 71046; 72158; 72197; 74177; 80048; 80053; 83735; 85025; 99222; 99232; 99233; 99239; A9270-GY; A9579; J1650; J1720; J2270; J2543; J8540; Q9967

== ENCOUNTER 2019-07-31 14:46 | Emergency (ER) | payer MEDICARE ==
--- OUTSIDE RECORDS SUMMARY | 2019-07-31 15:04 | XMS REPORT ---
:1950 Author Organization [facility] Care Team Providers Name Role Phone Unavailable Unavailable Unavailable Problems Condition Condition Condition Status Onset Resolution Last Treating Comments Name Details Category Date Date Treatment Clinician Date Wedge Wedge Diagnosis Active 2018-07 Loli compression compression 09-10 [place] fracture of fracture of RN unspecified unspecified lumbar lumbar vertebra, vertebra, subsequent subsequent encounter encounter for for fracture fracture with with routine routine healing healing Malignant Malignant Diagnosis Active 2018-07 Loli 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 [place] lower lobe, lower lobe, RN left left bronchus or bronchus or lung lung Disorder of Disorder of Diagnosis Active 2018-07 Loli brain, brain, 08-17 [place] unspecified unspecified RN Hyperlipide Hyperlipide Diagnosis Active 2018-07 Loli rhett, rhett, 08-17 [place] unspecified unspecified RN 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-17 [place] terolemia, terolemia, RN unspecified unspecified Cervicalgia Cervicalgia Diagnosis Active 2018-07 Loli 08-17 [place] RN Muscle Muscle Diagnosis Active Loli weakness weakness [place] (generalize (generalize RN d) d) [facility] cardiac cath tech Diagnosis Active Loli (current) (current) [place] use of use of RN systemic systemic steroids steroids cardiac cath tech cardiac cath tech Diagnosis Active Loli (current) (current) [place] use of use of RN anticoagula anticoagula nts nts cardiac cath tech cardiac cath tech Diagnosis Active Loli (current) (current) [place] use of use of RN opiate opiate analgesic analgesic Pain frequent Pain Mgmt Active 2018-07 Linda pain 2- [place] 11:00: [id number] Respiratory dyspnea Respirator Active 2018-07 Linda present y 2 [place] 11:00: [id number] 00 Integument skin Integument Resolve 2018-072019-07-14 Linda integrity d 2-12 10:30:00 [place] risk 11:00: [id number] 00 Nutrition nutritional Nutrition Active 2018-07 Linda restriction - [place] s 11:00: [id number] 00 Nutrition changing Nutrition Active 2018-07 Linda weight/appe 09-10 [place] t[place] 11:00: [id number] 00 Elimination urinary Eliminatio Resolve 2018-072019-07-28 Linda incontinenc n d 2-12 13:56:00 [place] e 11:00: [id number] 00 Neuro confusion Neuro/Emot Active 2018-07 Linda present ion 09-10 [place] 11:00: [id number] 00 Neuro anxiety Neuro/Emot Active 2018-07 Linda present ion 09-10 [place] 11:00: [id number] 00 Activity ADL Activity Resolve 2018-072019-07-17 Linda assistance d 2-12 14:40:00 [place] required 11:00: [id number] 00 Activity self-care Activity Resolve 2018-072019-07-14 Linda deficit d 2-12 10:30:00 [place] 11:00: [id number] 00 Safety cannot be Safety Resolve 2018-072019-07-17 Linda left alone d 2-12 14:40:00 [place] 11:00: [id number] 00 Safety fall risk Safety Resolve 2018-072019-07-17 Linda factor d 2-12 14:40:00 [place] present 11:00: [id number] Safety risk for Safety Resolve 2018-072019-07-17 Linda hospitaliza d 2-12 14:40:00 [place] tion 11:00: [id number] 00 Medication oral med Meds Resolve 2018-072019-07-28 Linda assistance d 2-12 13:56:00 [place] required 11:00: [id number] 00 Medication knowledge/s Meds Resolve 2018-072019-07-28 Linda kill d 2-12 13:56:00 [place] deficit: pt 11:00: [id number] 00 Diagnoses knowledge/s Diagnoses Active 2018-07 Linda kill - [place] deficit: pt 11:00: [id number] 00 Diagnoses knowledge/s Diagnoses Active 2018-07 Linda kill 09-10 [place] deficit: cg 11:00: [id number] 00 Musculoskel transfer Musculoske Active 2018-07 Linda etal assistance letal - [place] required 11:00: [id number] 00 Musculoskel requires Musculoske Active 2018-07 Linda etal human letal 2 [place] assist to 11:00: [id number] leave home 00 Nutrition nutritional Nutrition Active 2018-07 [place] risk 2-12 [place] 15:25: [id number] 00 Bed transfer PT/OT: Bed Active 2018-07 [place] Mobility/Tr deficit: Mobility/T 2-12 Tank ansfer sit/stand ransfer 15:25: [id number] 00 Bed transfer PT/OT: Bed Active 2018-07 [place] Mobility/Tr deficit: Mobility/T 2-12 Tank ansfer toilet/comm ransfer 15:25: [id number] ode 00 Bed transfer PT/OT: Bed Active 2018-07 [place] Mobility/Tr deficit: Mobility/T 2-12 Tank ansfer shower/tub ransfer 15:25: [id number] 00 Bed transfer PT/OT: Bed Active 2018-07 [place]ese Mobility/Tr deficit: Mobility/T 2-12 Tank ansfer vehicle ransfer 15:25: [id number] 00 Bed knowledge/s PT/OT: Bed Active 2018-07 Reese Mobility/Tr kill Mobility/T 2-12 Tank ansfer deficit: pt ransfer 15:25: [id number] 00 Bed bed PT/OT: Bed Active 2018-07 Reese Mobility/Tr mobility Mobility/T 2-12 Tank ansfer deficit ransfer 15:25: [id number] 00 Gait/Locomo gait PT/OT: Active 2018-07 Reese tion assistive Gait/Locom 2-12 [place] problems device otion 15:25: [id number] present 00 Gait/Locomo knowledge/s PT/OT: Active 2018-07 Reese tion kill Gait/Locom 2-12 [place] problems deficit: pt otion 15:25: [id number] 00 Gait/Locomo gait PT/OT: Active 2018-07 Reese tion deficit Gait/Locom 2-12 Tank problems otion 15:25: [id number] 00 Safety risk for Safety Active 2018-07 Ashley antunez 2-23 [place] tion 13:00: [id number] 24 Hr Diet nutrition NT: 24Hr Active 2018-07 Ashley intake Diet 09-21 [place] deficit 13:00: [id number] 24 Hr Diet knowledge/s NT: 24Hr Resolve 2018-072019-07-21 Ashley kill Diet d 09-21 13:00:00 [place] deficit - 13:00: [id number] pt 00 24 Hr Diet knowledge/s NT: 24Hr Resolve 2018-072019-07-21 Ashley kill Diet d 09-21 13:00:00 [place] deficit - 13:00: [id number] cg 00 Nutritional eating NT: Resolve 2018-072019-07-21 Ashley Barrier difficultie Barriers d 09-21 13:00:00 [place] s present 13:00: [id number] Neuro impaired Neuro/Emot Active 2018-07 Loli decision-ma ion 09-21 Chelo delgado 14:15: RN 00 Safety cannot be Safety Active 2018-07 Loli left alone 09-21 [place] 14:15: RN 00 Cardio edema Cardiovasc Active 2018-07 Loli ular [place] 13:56: RN 00 24 Hr Diet nutrition NT: 24Hr Active 2018-07 Loli intake Diet [place] deficit 13:56: RN 00 Allergies, Adverse Reactions, Alerts Allergy Name Allergy Status Severity Reaction(s) Onset Inactive Treating Comments Type Date Date Clinician streptomycin Base Active Unknown Reaction 2018-07 Interface Ingredient Unknown 08-17 Medications Ordered Filled Start Stop Current Ordering Indication Dosage Frequency Signature Comments Components Medication Medication Date Date Medication? Clinician (SIG) Name Name acetaminoph acetaminoph 2018-07 Yes [place] Unknown Unknown en 500 mg en 500 mg 09-10 Matthew GUTIERRES tablet tablet dexAMETHaso dexAMETHaso 2018-07 Yes [place] Unknown Unknown ne 2 mg ne 2 mg 09-10 Matthew GUTIERRES tablet tablet furosemide furosemide 2018-07- Yes [place] Unknown Unknown 20 mg 20 mg 09-10 Matthew GUTIERRES tablet tablet morphine ER morphine ER 2018-07- Yes [place] Unknown Unknown 15 mg 15 mg 09-10 Matthew GUTIERRES tablet,exte tablet,exte nded nded release release Klor-Con Klor-Con 2018-07- Yes [place] Unknown Unknown M20 mEq M20 mEq 09-10 Matthew GUTIERRES tablet,exte tablet,exte nded nded release release LORazepam LORazepam 2018-07 Yes [place] Unknown Unknown 0.5 mg 0.5 mg 09-10- Matthew GUTIERRES tablet tablet omeprazole omeprazole 2018-07 Yes [place] Unknown Unknown 20 mg 20 mg - Matthew GUTIERRES capsule,del capsule,del ayed ayed release release osimertinib osimertinib 2018-07 Yes [place] Unknown Unknown 80 mg 80 mg 09-10 Matthew GUTIERRES tablet tablet ondansetron ondansetron 2018-07 Yes [place] Unknown Unknown 4 mg 4 mg 09-10 Matthew GUTIERRES disintegrat disintegrat ing tablet ing tablet oxyCODONE 5 oxyCODONE 5 2018-07 Yes [place] Unknown Unknown mg tablet mg tablet 09-10 Matthew GUTIERRES osimertinib osimertinib 2018-07 Yes [place] Unknown Unknown 40 mg 40 mg 09-17 ,Cherri tablet tablet morphine ER morphine ER 2018-07 Yes [place] Unknown Unknown 15 mg 15 mg 09-17 ,Cherri tablet,exte tablet,exte nded nded release release LORazepam 1 LORazepam 1 2018-07 Yes [place] Unknown Unknown mg tablet mg tablet - Matthew GUTIERRES Vital Signs Vital Name Observation Time Observation Value Comments SYSTOLIC mm[Hg] 2019-07-28 18:09:37 116 mm[Hg] mm[Hg] Method: Sit SYSTOLIC mm[Hg] 2019-07-10 18:09:19 104 mm[Hg] mm[Hg] Method: Stand DIASTOLIC mm[Hg] 2019-07-28 18:09:37 70 mm[Hg] mm[Hg] Method: Sit DIASTOLIC mm[Hg] 2019-07-10 18:09:19 66 mm[Hg] mm[Hg] Method: Stand PULSE 2019-07-28 18:09:37 94 /min /min RESP RATE 2019-07-28 18:09:37 16 /min /min TEMP 2019-07-28 18:09:37 97.6 [degF] Procedures This patient has no known procedures. Results This patient has no known results.
--- OUTSIDE RECORDS SUMMARY | 2019-07-31 15:04 | XMS REPORT ---
:1950 Author Organization [facility] Care Team Providers Name Role Phone Unavailable [...] weakness [place] (generalize (generalize RN d) d) [facility] exterminator helper Diagnosis Active Loli (current) (current) [place] use of use of RN systemic systemic steroids steroids exterminator helper exterminator helper Diagnosis Active [place]oli (current) (current) [place] use of use of RN anticoagula anticoagula nts nts exterminator helper exterminator helper Diagnosis Active [place]oli (current) (current) [place] use of use of RN opiate opiate analgesic analgesic Pain frequent Pain Mgmt Active 2018-07 Linda pain 2- [place] 11:00: [id number] 00 Respiratory dyspnea Respirator Active 2018-07 Linda present y 2 [place] 11:00: [id number] 00 Integument skin Integument Resolve 2018-072019-07-14 Linda integrity d 2-12 10:30:00 [place] risk 11:00: [id number] 00 Nutrition nutritional Nutrition Active 2018-07 Linda restriction 09-10 Mitra s 11:00: [id number] 00 Nutrition changing Nutrition Active 2018-07 Linda weight/appe 09-10 [place] tite 11:00: [id number] 00 Elimination urinary Eliminatio Active 2018-07 Linda incontinenc n 09-10 Mitra e 11:00: [id number] 00 Neuro confusion Neuro/Emot Active 2018-07 Linda present ion 09-10 [place] 11:00: [id number] 00 Neuro anxiety Neuro/Emot Active 2018-07 Linda present ion 09-10 [place] 11:00: [id number] 00 Activity ADL Activity Resolve 2018-072019-07-17 Linda assistance d 2-12 14:40:00 [place] required 11:00: [id number] 00 Activity self-care Activity Resolve 2018-072019-07-14 Linda deficit d 2-12 10:30:00 [place] 11:00: [id number] 00 Safety cannot be Safety Resolve 2018-072019-07-17 Linda left alone d 2-12 14:40:00 [place] 11:00: [id number] 00 Safety fall risk Safety Resolve 2018-072019-07-17 Linda factor d 2-12 14:40:00 [place] present 11:00: [id number] 00 Safety risk for Safety Resolve 2018-072019-07-17 Linda hospitaliza d 2-12 14:40:00 [place] tion 11:00: [id number] 00 Medication oral med Meds Active 2018-07 Linda assistance 09-10 [place] required 11:00: [id number] 00 Medication knowledge/s Meds Active 2018-07 Linda kill 09-10 [place] deficit: pt 11:00: [id number] 00 Diagnoses knowledge/s Diagnoses Active 2018-07 Linda kill 09-10 [place] deficit: pt 11:00: [id number] 00 Diagnoses knowledge/s Diagnoses Active 2018-07 Linda kill 09-10 [place] deficit: cg 11:00: [id number] 00 Musculoskel transfer Musculoske Active 2018-07 Linda etal assistance letal 09-10 [place] required 11:00: [id number] 00 Musculoskel requires Musculoske Active 2018-07 Linda etal human letal 2-12 [place] assist to 11:00: [id number] leave home 00 Nutrition nutritional Nutrition Active 2018-07 Reese risk 2-12 Tank 15:25: [id number] 00 Bed transfer PT/OT: Bed Active 2018-07 [place] Mobility/Tr deficit: Mobility/T 2-12 Tank ansfer sit/stand ransfer 15:25: [id number] 00 Bed transfer PT/OT: Bed Active 2018-07 [place] Mobility/Tr deficit: Mobility/T 2-12 Tank darrionfer toilet/comm ransfer 15:25: [id number] ode 00 Bed transfer PT/OT: Bed Active 2018-07 [place]ese Mobility/Tr deficit: Mobility/T 2-12 Tank ansfer shower/tub ransfer 15:25: [id number] 00 Bed transfer PT/OT: Bed Active 2018-07 [place] Mobility/Tr deficit: Mobility/T 2-12 Tank ansfer vehicle ransfer 15:25: [id number] 00 Bed knowledge/s PT/OT: Bed Active 2018-07 Reese Mobility/Tr kill Mobility/T 2-12 Tank ansfer deficit: pt ransfer 15:25: [id number] 00 Bed bed PT/OT: Bed Active 2018-07 Reese Mobility/Tr mobility Mobility/T 2-12 Tank ansfer deficit ransfer 15:25: [id number] 00 Gait/Locomo gait PT/OT: Active 2018-07 Reese tion assistive Gait/Locom 2-12 Tank problems device otion 15:25: [id number] present 00 Gait/Locomo knowledge/s PT/OT: Active 2018-07 Reese tion kill Gait/Locom 2-12 Tank problems deficit: pt otion 15:25: [id number] 00 Gait/Locomo gait PT/OT: Active 2018-07 Reese tion deficit Gait/Locom 2-12 Tank problems otion 15:25: [id number] 00 Safety risk for Safety Active 2018-07 Reese hospitaliza 09-22 [place] tion 13:00: [id number] 00 Allergies, Adverse Reactions, Alerts Allergy Name Allergy Status Severity Reaction(s) Onset Inactive Treating Comments Type Date Date Clinician streptomycin Base Active Unknown Reaction 2018-07 Interface Ingredient Unknown 08-17 Medications Ordered Filled Start Stop Current Ordering Indication Dosage Frequency Signature Comments Components Medication Medication Date Date Medication? Clinician (SIG) Name Name acetaminoph acetaminoph 2018-07 Yes [place] Unknown Unknown en 500 mg en 500 mg 09-10 Matthew GUTIERRES tablet tablet dexAMETHaso dexAMETHaso 2018-07 Yes [place] Unknown Unknown ne 2 mg ne 2 mg 09-10 Matthew GUTIERRES tablet tablet furosemide furosemide 2018-07- Yes [place] Unknown Unknown 20 mg 20 mg 09-10 Matthew GUTIERRES tablet tablet morphine ER morphine ER 2018-07- Yes [place] Unknown Unknown 15 mg 15 mg 09-10 Matthew GUTIERRES tablet,exte tablet,exte nded nded release release Klor-Con Klor-Con 2018-07- Yes [place] Unknown Unknown M20 mEq M20 mEq 09-10 Matthew GUTIERRES tablet,exte tablet,exte nded nded release release LORazepam LORazepam 2018-07- Yes [place] Unknown Unknown 0.5 mg 0.5 mg 09-10 Matthew GUTIERRES tablet tablet omeprazole omeprazole 2018-07 Yes [place] Unknown Unknown 20 mg 20 mg 09-10 Matthew GUTIERRES capsule,del capsule,del ayed ayed release release osimertinib osimertinib 2018-07- Yes [place] Unknown Unknown 80 mg 80 mg 09-10 Matthew GUTIERRES tablet tablet ondansetron ondansetron 2018-07 Yes [place] Unknown Unknown 4 mg 4 mg 09-10 Matthew GUTIERRES disintegrat disintegrat ing tablet ing tablet oxyCODONE 5 oxyCODONE 5 2018-07 Yes [place] Unknown Unknown mg tablet mg tablet 09-10 Matthew GUTIERRES osimertinib osimertinib 2018-07 Yes [place] Unknown Unknown 40 mg 40 mg 09-17 Cherri GUTIERRES tablet tablet morphine ER morphine ER 2018-07 Yes [place] Unknown Unknown 15 mg 15 mg 09-17 Cherri GUTIERRES tablet,exte tablet,exte nded nded release release LORazepam 1 LORazepam 1 2018-07 Yes [place] Unknown Unknown mg tablet mg tablet 09-17 Matthew GUTIERRES Vital Signs Vital Name Observation Time Observation Value Comments SYSTOLIC mm[Hg] 2019-07-23 18:09:32 100 mm[Hg] mm[Hg] Method: Sit SYSTOLIC mm[Hg] 2019-07-10 18:09:19 104 mm[Hg] mm[Hg] Method: Stand DIASTOLIC mm[Hg] 2019-07-23 18:09:32 60 mm[Hg] mm[Hg] Method: Sit DIASTOLIC mm[Hg] 2019-07-10 18:09:19 66 mm[Hg] mm[Hg] Method: Stand PULSE 2019-07-23 18:09:32 72 /min /min RESP RATE 2019-07-22 18:09:31 16 /min /min TEMP 2019-07-23 18:09:32 98.8 [degF] Procedures This patient has no known procedures. Results This patient has no known results.
--- OUTSIDE RECORDS SUMMARY | 2019-07-31 15:04 | XMS REPORT ---
:1950 Author Organization [facility] Care Team Providers Name Role Phone Unavailable [...] weakness [place] (generalize (generalize RN d) d) assisted buttermaker helper Diagnosis Active Loli (current) (current) [place] use of use of RN systemic systemic steroids steroids buttermaker helper buttermaker helper Diagnosis Active [place]oli (current) (current) [place] use of use of RN anticoagula anticoagula nts nts buttermaker helper buttermaker helper Diagnosis Active [place] (current) (current) [place] use of use of RN opiate opiate analgesic analgesic Pain frequent Pain Mgmt Active 2018-07 Linda pain 2- [place] 11:00: [id number] 00 Respiratory dyspnea Respirator Active 2018-07 Linda present y 2 [place] 11:00: [id number] 00 Integument skin Integument Resolve 2018-072019-07-14 Linda integrity d 2-12 10:30:00 Mitra risk 11:00: [id number] 00 Nutrition nutritional Nutrition Active 2018-07 Linda restriction 09-10 Mitra s 11:00: [id number] 00 Nutrition changing Nutrition Active 2018-07 Linda weight/appe 09-10 [place] tite 11:00: [id number] 00 Elimination urinary Eliminatio Active 2018-07 Linda incontinenc n 09-10 Mitra e 11:00: [id number] 00 Neuro confusion Neuro/Emot Active 2018-07 Linda present ion 09-10 [place] 11:00: [id number] 00 Neuro anxiety Neuro/Emot Active 2018-07 Linda present ion 09-10 [place] 11:00: [id number] 00 Activity ADL Activity Resolve 2018-072019-07-17 Linda assistance d 2-12 14:40:00 [place] required 11:00: [id number] 00 Activity self-care Activity Resolve 2018-072019-07-14 Linda deficit d 2-12 10:30:00 [place] 11:00: [id number] 00 Safety cannot be Safety Resolve 2018-072019-07-17 Linda left alone d 2-12 14:40:00 [place] 11:00: [id number] 00 Safety fall risk Safety Resolve 2018-072019-07-17 Linda factor d 2-12 14:40:00 [place] present 11:00: [id number] 00 Safety risk for Safety Resolve 2018-072019-07-17 Linda hospitaliza d 2-12 14:40:00 [place] tion 11:00: [id number] 00 Medication oral med Meds Active 2018-07 Linda assistance 09-10 [place] required 11:00: [id number] 00 Medication knowledge/s Meds Active 2018-07 Linda kill 09-10 [place] deficit: pt 11:00: [id number] 00 Diagnoses knowledge/s Diagnoses Active 2018-07 Linda kill 09-10 [place] deficit: pt 11:00: [id number] 00 Diagnoses knowledge/s Diagnoses Active 2018-07 Linda kill 09-10 [place] deficit: cg 11:00: [id number] 00 Musculoskel transfer Musculoske Active 2018-07 Linda etal assistance letal 09-10 [place] required 11:00: [id number] 00 Musculoskel requires Musculoske Active 2018-07 Linda etal human letal 2-12 [place] assist to 11:00: [id number] leave home 00 Nutrition nutritional Nutrition Active 2018-07 Reese risk 2-12 Tank 15:25: [id number] 00 Bed transfer PT/OT: Bed Active 2018-07 Reese Mobility/Tr deficit: Mobility/T 2-12 Tankgavin maierfer sit/stand ransfer 15:25: [id number] 00 Bed transfer PT/OT: Bed Active 2018-07 Reese Mobility/Tr deficit: Mobility/T 2-12 Tankgavin [place] toilet/comm ransfer 15:25: [id number] ode 00 Bed transfer PT/OT: Bed Active 2018-07 Reese Mobility/Tr deficit: Mobility/T 2-12 Tank ansfer shower/tub ransfer 15:25: [id number] 00 Bed transfer PT/OT: Bed Active 2018-07 Reese Mobility/Tr deficit: Mobility/T 2-12 Tank ansfer vehicle ransfer 15:25: [id number] 00 Bed knowledge/s PT/OT: Bed Active 2018-07 Reese Mobility/Tr kill Mobility/T 2-12 Tank ansfer deficit: pt ransfer 15:25: [id number] 00 Bed bed PT/OT: Bed Active 2018-07 Reese Mobility/Tr mobility Mobility/T 2-12 Tank ansfer deficit ransfer 15:25: [id number] 00 Gait/Locomo gait PT/OT: Active 2018-07 Reese tion assistive Gait/Locom 2-12 Tank problems device otion 15:25: [id number] present 00 Gait/Locomo knowledge/s PT/OT: Active 2018-07 Reese tion kill Gait/Locom 2-12 Tank problems deficit: pt otion 15:25: [id number] 00 Gait/Locomo gait PT/OT: Active 2018-07 Reese tion deficit Gait/Locom 2-12 Tank problems otion 15:25: [id number] 00 Safety risk for Safety Active 2018-07 Ashley hospitaliza 09-21 [place] tion 13:00: [id number] 00 24 Hr Diet nutrition NT: 24Hr Resolve 2018-072019-07-21 Ashley intake Diet d 2- 13:00:00 [place] deficit 13:00: [id number] 00 24 Hr Diet knowledge/s NT: 24Hr Resolve 2018-072019-07-21 Ashley kill Diet d - 13:00:00 [place] deficit - 13:00: [id number] pt 00 24 Hr Diet knowledge/s NT: 24Hr Resolve 2018-072019-07-21 Ashley kill Diet d 09-21 13:00:00 [place] deficit - 13:00: [id number] cg 00 Nutritional eating NT: Resolve 2018-072019-07-21 Ashley Barrier difficultie Barriers d 09-21 13:00:00 Perry s present 13:00: [id number] Neuro impaired Neuro/Emot Active 2018-07 Loli decision-ma ion 09-21 [place] danny 14:15: RN 00 Safety cannot be Safety Active 2018-07 Loli left alone 09-21 [place] 14:15: RN 00 Allergies, Adverse Reactions, Alerts Allergy Name Allergy Status Severity Reaction(s) Onset Inactive Treating Comments Type Date Date Clinician streptomycin Base Active Unknown Reaction 2018-07 Interface Ingredient Unknown 08-17 Medications Ordered Filled Start Stop Current Ordering Indication Dosage Frequency Signature Comments Components Medication Medication Date Date Medication? Clinician (SIG) Name Name acetaminoph acetaminoph 2018-07 Yes [place] Unknown Unknown en 500 mg en 500 mg 09-10 Matthew GUTIERRES tablet tablet dexAMETHaso dexAMETHaso 2018-07 Yes [place] Unknown Unknown ne 2 mg ne 2 mg 09-10 Matthew GUTIERRES tablet tablet furosemide furosemide 2018-07- Yes [place] Unknown Unknown 20 mg 20 mg 09-10 Matthew GUTIERRES tablet tablet morphine ER morphine ER 2018-07- Yes [place] Unknown Unknown 15 mg 15 mg 09-10 Matthew GUTIERRES tablet,exte tablet,exte nded nded release release Klor-Con Klor-Con 2018-07- Yes [place] Unknown Unknown M20 mEq M20 mEq 09-10 Matthew GUTIERRES tablet,exte tablet,exte nded nded release release LORazepam LORazepam 2018-07- Yes [place] Unknown Unknown 0.5 mg 0.5 mg 09-10 Matthew GUTIERRES tablet tablet omeprazole omeprazole 2018-07 Yes [place] Unknown Unknown 20 mg 20 mg 09-10 Matthew GUTIERRES capsule,del capsule,del ayed ayed release release osimertinib osimertinib 2018-07- Yes [place] Unknown Unknown 80 mg 80 mg 09-10- Matthew GUTIERRES tablet tablet ondansetron ondansetron 2018-07 Yes [place] Unknown Unknown 4 mg 4 mg 09-10 Matthew GUTIERRES disintegrat disintegrat ing tablet ing tablet oxyCODONE 5 oxyCODONE 5 2018-07 Yes [place] Unknown Unknown mg tablet mg tablet 09-10 Matthew GUTIERRES osimertinib osimertinib 2018-07 Yes [place] Unknown Unknown 40 mg 40 mg 09-17 Cherri GUTIERRES tablet tablet morphine ER morphine ER 2018-07 Yes [place] Unknown Unknown 15 mg 15 mg 09-17 Cherri GUTIERRES tablet,exte tablet,exte nded nded release release LORazepam 1 LORazepam 1 2018-07 Yes [place] Unknown Unknown mg tablet mg tablet 09-17 Matthew GUTIERRES Vital Signs Vital Name Observation Time Observation Value Comments SYSTOLIC mm[Hg] 2019-07-23 18:09:32 100 mm[Hg] mm[Hg] Method: Sit SYSTOLIC mm[Hg] 2019-07-10 18:09:19 104 mm[Hg] mm[Hg] Method: Stand DIASTOLIC mm[Hg] 2019-07-23 18:09:32 60 mm[Hg] mm[Hg] Method: Sit DIASTOLIC mm[Hg] 2019-07-10 18:09:19 66 mm[Hg] mm[Hg] Method: Stand PULSE 2019-07-23 18:09:32 72 /min /min RESP RATE 2019-07-25 18:09:34 16 /min /min TEMP 2019-07-23 18:09:32 98.8 [degF] Procedures This patient has no known procedures. Results This patient has no known results.
--- OUTSIDE RECORDS SUMMARY | 2019-07-31 15:04 | XMS REPORT ---
:1950 Author Organization [facility] Care Team Providers Name Role Phone Unavailable [...] weakness [place] (generalize (generalize RN d) d) group home rn long term care Diagnosis Active Loli (current) (current) [place] use of use of RN systemic systemic steroids steroids rn long term care rn long term care Diagnosis Active Loli (current) (current) [place] use of use of RN anticoagula anticoagula nts nts rn long term care rn long term care Diagnosis Active Loli (current) (current) [place] use of use of RN opiate opiate analgesic analgesic Pain frequent Pain Mgmt Active 2018-07 Linda pain 2- [place] 11:00: [id number] 00 Respiratory dyspnea Respirator Active 2018-07 Linda present y 2 [place] 11:00: [id number] 00 Integument skin Integument Resolve 2018-072019-07-14 Linda integrity d 2-12 10:30:00 Mitra risk 11:00: [id number] 00 Nutrition nutritional Nutrition Active 2018-07 Linda restriction 09-10 Mitra s 11:00: [id number] 00 Nutrition changing Nutrition Active 2018-07 Linda weight/appe 09-10 [place] tite 11:00: [id number] 00 Elimination urinary Eliminatio Active 2018-07 Linda incontinenc n 09-10 Mitra e 11:00: [id number] 00 Neuro confusion Neuro/Emot Active 2018-07 Linda present ion 09-10 [place] 11:00: [id number] 00 Neuro anxiety Neuro/Emot Active 2018-07 Linda present ion 09-10 [place] 11:00: [id number] 00 Activity ADL Activity Resolve 2018-072019-07-17 Linda assistance d 2-12 14:40:00 [place] required 11:00: [id number] 00 Activity self-care Activity Resolve 2018-072019-07-14 Linda deficit d 2-12 10:30:00 [place] 11:00: [id number] 00 Safety cannot be Safety Resolve 2018-072019-07-17 Linda left alone d 2-12 14:40:00 [place] 11:00: [id number] 00 Safety fall risk Safety Resolve 2018-072019-07-17 Linda factor d 2-12 14:40:00 [place] present 11:00: [id number] 00 Safety risk for Safety Resolve 2018-072019-07-17 Linda hospitaliza d 2-12 14:40:00 [place] tion 11:00: [id number] 00 Medication oral med Meds Active 2018-07 Linda assistance 09-10 [place] required 11:00: [id number] 00 Medication knowledge/s Meds Active 2018-07 Linda kill 09-10 [place] deficit: pt 11:00: [id number] 00 Diagnoses knowledge/s Diagnoses Active 2018-07 Linda kill 09-10 [place] deficit: pt 11:00: [id number] 00 Diagnoses knowledge/s Diagnoses Active 2018-07 Linda kill 09-10 [place] deficit: cg 11:00: [id number] 00 Musculoskel transfer Musculoske Active 2018-07 Linda etal assistance letal 09-10 [place] required 11:00: [id number] 00 Musculoskel requires Musculoske Active 2018-07 Linda etal human letal 2-12 [place] assist to 11:00: [id number] leave home 00 Nutrition nutritional Nutrition Active 2018-07 Reese risk 2-12 Tank 15:25: [id number] 00 Bed transfer PT/OT: Bed Active 2018-07 Reese Mobility/Tr deficit: Mobility/T 2-12 Tank ansfer sit/stand ransfer 15:25: [id number] 00 Bed transfer PT/OT: Bed Active 2018-07 Reese Mobility/Tr deficit: Mobility/T 2-12 Tank darrionfer toilet/comm ransfer 15:25: [id number] ode 00 Bed transfer PT/OT: Bed Active 2018-07 Reese Mobility/Tr deficit: Mobility/T 2-12 Tank ansfer shower/tub ransfer 15:25: [id number] 00 Bed transfer PT/OT: Bed Active 2018-07 Reese Mobility/Tr deficit: Mobility/T 2-12 Tank ansfer vehicle ransfer 15:25: [id number] 00 Bed knowledge/s PT/OT: Bed Active 2018-07 Reese Mobility/Tr kill Mobility/T 2-12 Tank ansfer deficit: pt ransfer 15:25: [id number] 00 Bed bed PT/OT: Bed Active 2018-07 Reese Mobility/Tr mobility Mobility/T 2-12 Tank ansfer deficit ransfer 15:25: [id number] 00 Gait/Locomo gait PT/OT: Active 2018-07 Reese tion assistive Gait/Locom 2-12 Tank problems device otion 15:25: [id number] 00 Gait/Locomo knowledge/s PT/OT: Active 2018-07 Reese tion kill Gait/Locom 2-12 Takn problems deficit: pt otion 15:25: [id number] 00 Gait/Locomo gait PT/OT: Active 2018-07 Reese tion deficit Gait/Locom 2-12 Tank problems otion 15:25: [id number] 00 Safety risk for Safety Active 2018-07 Reese hospitaliza 09-22 Tank tion 13:00: [id number] 00 Allergies, Adverse Reactions, Alerts Allergy Name Allergy Status Severity Reaction(s) Onset Inactive Treating Comments Type Date Date Clinician streptomycin Base Active Unknown Reaction 2018-07 Interface Ingredient Unknown 08-17 Medications Ordered Filled Start Stop Current Ordering Indication Dosage Frequency Signature Comments Components Medication Medication Date Date Medication? Clinician (SIG) Name Name acetaminoph acetaminoph 2018-07 Yes [place] Unknown Unknown en 500 mg en 500 mg 09-10 Matthew GUTIERRES tablet tablet dexAMETHaso dexAMETHaso 2018-07 Yes [place] Unknown Unknown ne 2 mg ne 2 mg 09-10 Matthew GUTIERRES tablet tablet furosemide furosemide 2018-07- Yes [place] Unknown Unknown 20 mg 20 mg 09-10 Matthew GUTIERRES tablet tablet morphine ER morphine ER 2018-07- Yes [place] Unknown Unknown 15 mg 15 mg 09-10 Matthew GUTIERRES tablet,exte tablet,exte nded nded release release Klor-Con Klor-Con 2018-07- Yes [place] Unknown Unknown M20 mEq M20 mEq 09-10 Matthew GUTIERRES tablet,exte tablet,exte nded nded release release LORazepam LORazepam 2018-07- Yes [place] Unknown Unknown 0.5 mg 0.5 mg 09-10 Matthew GUTIERRES tablet tablet omeprazole omeprazole 2018-07 Yes [place] Unknown Unknown 20 mg 20 mg 09-10 Matthew GUTIERRES capsule,del capsule,del ayed ayed release release osimertinib osimertinib 2018-07- Yes [place] Unknown Unknown 80 mg 80 mg 09-10 Matthew GUTIERRES tablet tablet ondansetron ondansetron 2018-07 Yes [place] Unknown Unknown 4 mg 4 mg 09-10 Matthew GUTIERRES disintegrat disintegrat ing tablet ing tablet oxyCODONE 5 oxyCODONE 5 2018-07 Yes [place] Unknown Unknown mg tablet mg tablet 09-10 Matthew GUTIERRES osimertinib osimertinib 2018-07 Yes [place] Unknown Unknown 40 mg 40 mg 09-17 Cherri GUTIERRES tablet tablet morphine ER morphine ER 2018-07 Yes [place] Unknown Unknown 15 mg 15 mg 09-17 Cherri GUTIERRES tablet,exte tablet,exte nded nded release release LORazepam 1 LORazepam 1 2018-07 Yes [place] Unknown Unknown mg tablet mg tablet 09-17 [...]
--- OUTSIDE RECORDS SUMMARY | 2019-07-31 15:04 | XMS REPORT ---
:1950 Author Organization [facility] Care Team Providers Name Role Phone Unavailable [...] weakness [place] (generalize (generalize RN d) d) joint terminal attack controller [facility] Diagnosis Active Loli (current) (current) [place] use of use of RN systemic systemic steroids steroids [facility] joint terminal attack controller Diagnosis Active Loli (current) (current) [place] use of use of RN anticoagula anticoagula nts nts [facility] joint terminal attack controller Diagnosis Active [place]oli (current) (current) [place] use of use of RN opiate opiate analgesic analgesic Pain frequent Pain Mgmt Active 2018-07 Linda pain 2- [place] 11:00: [id number] Respiratory dyspnea Respirator Active 2018-07 Linda present y 2 [place] 11:00: [id number] 00 Integument skin Integument Resolve 2018-072019-07-14 [place] integrity d 2-12 10:30:00 [place] risk 11:00: [id number] 00 Nutrition nutritional Nutrition Active 2018-07 Linda restriction - [place] s 11:00: [id number] 00 Nutrition changing Nutrition Active 2018-07 Linda weight/appe 09-10 [place] tite 11:00: [id number] 00 Elimination urinary Eliminatio Resolve 2018-072019-07-28 Linda incontinenc n d 2-12 13:56:00 [place] e 11:00: [id number] 00 Neuro confusion Neuro/Emot Active 2018-07 Linda present ion 09-10 [place] 11:00: [id number] 00 Neuro anxiety Neuro/Emot Active 2018-07 Linda present ion 09-10 [place] 11:00: [id number] Activity ADL Activity Resolve 2018-072019-07-17 Linda assistance d 2-12 14:40:00 [place] required 11:00: [id number] 00 Activity self-care Activity Resolve 2018-072019-07-14 Linda deficit d 2-12 10:30:00 [place] 11:00: [id number] 00 Safety cannot be Safety Resolve 2018-072019-07-17 Linda left alone d 2-12 14:40:00 [place] 11:00: [id number] 00 Safety fall risk Safety Resolve 2018-072019-07-17 Linda factor d 2-12 14:40:00 [place] present 11:00: [id number] Safety risk for Safety Resolve 2018-072019-07-17 Linda hospitaliza d 2-12 14:40:00 [place] tion 11:00: [id number] 00 Medication oral med Meds Resolve 2018-072019-07-28 Linda assistance d 2-12 13:56:00 [place] required 11:00: [id number] 00 Medication knowledge/s Meds Resolve 2018-072019-07-28 Linda kill d 2-12 13:56:00 [place] deficit: pt 11:00: [id number] 00 Diagnoses knowledge/s Diagnoses Active 2018-07 Linda kill - [place] deficit: pt 11:00: [id number] 00 Diagnoses knowledge/s Diagnoses Active 2018-07 Linda kill 09-10 [place] deficit: cg 11:00: [id number] 00 Musculoskel transfer Musculoske Active 2018-07 Linda etal assistance letal - [place] required 11:00: [id number] 00 Musculoskel requires Musculoske Active 2018-07 Linda etal human letal 2 [place] assist to 11:00: [id number] leave home 00 Nutrition nutritional Nutrition Active 2018-07 [place] risk 2-12 [place] 15:25: [id number] 00 Bed transfer PT/OT: Bed Active 2018-07 [place] Mobility/Tr deficit: Mobility/T 2-12 [place] ansfer sit/stand ransfer 15:25: [id number] 00 Bed transfer PT/OT: Bed Active 2018-07 [place] Mobility/Tr deficit: Mobility/T 2-12 [place] ansfer toilet/comm ransfer 15:25: [id number] ode 00 Bed transfer PT/OT: Bed Active 2018-07 [place] Mobility/Tr deficit: Mobility/T 2-12 [place] ansfer shower/tub ransfer 15:25: [id number] 00 Bed transfer PT/OT: Bed Active 2018-07 [place] Mobility/Tr deficit: Mobility/T 2-12 [place] ansfer vehicle ransfer 15:25: [id number] 00 Bed knowledge/s PT/OT: Bed Active 2018-07 [place] Mobility/Tr kill Mobility/T 2-12 [place] ansfer deficit: pt ransfer 15:25: [id number] 00 Bed bed PT/OT: Bed Active 2018-07 [place] Mobility/Tr mobility Mobility/T 2-12 [place] ansfer deficit ransfer 15:25: [id number] 00 Gait/Locomo gait PT/OT: Active 2018-07 [place]ese tion assistive Gait/Locom 2-12 [place] problems device otion 15:25: [id number] present 00 Gait/Locomo knowledge/s PT/OT: Active 2018-07 [place]ese tion kill Gait/Locom 2-12 [place] problems deficit: pt otion 15:25: [id number] 00 Gait/Locomo gait PT/OT: Active 2018-07 [place]ese tion deficit Gait/Locom 2-12 [place] problems otion 15:25: [id number] 00 Safety risk for Safety Active 2018-07 Ashley antunez 2-23 [place] tion 13:00: [id number] 24 Hr Diet nutrition NT: 24Hr Active 2018-07 Ashley intake Diet 09-21 [place] deficit 13:00: [id number] 24 Hr Diet knowledge/s NT: 24Hr Resolve 2018-072019-07-21 Ashley kill Diet d 09-21 13:00:00 [place] deficit - 13:00: [id number] pt 00 24 Hr Diet knowledge/s NT: 24Hr Resolve 2018-072019-07-21 Ashley kill Diet d 09-21 13:00:00 [place] deficit - 13:00: [id number] cg 00 Nutritional eating NT: Resolve 2018-072019-07-21 Ashley Barrier difficultie Barriers d 09-21 13:00:00 [place] s present 13:00: [id number] Neuro impaired Neuro/Emot Active 2018-07 Loli [...] (SIG) Name Name acetaminoph acetaminoph 2018-07 Yes [place] Unknown Unknown en 500 mg en 500 mg 09-10 Matthew GUTIERRES tablet tablet dexAMETHaso dexAMETHaso 2018-07 Yes [place] Unknown Unknown ne 2 mg ne 2 mg 09-10 Matthew GUTIERRES tablet tablet furosemide furosemide 2018-07- Yes [place] Unknown Unknown 20 mg 20 mg 09-10 Matthew GUTIERRES tablet tablet morphine ER morphine ER 2018-07- Yes [place] Unknown Unknown 15 mg 15 mg 09-10 Matthew GUTIERRES tablet,exte tablet,exte nded nded release release Klor-Con Klor-Con 2018-07- Yes [place] Unknown Unknown M20 mEq M20 mEq 09-10 Matthew GUTIERRES tablet,exte tablet,exte nded nded release release LORazepam LORazepam 2018-07 Yes [place] Unknown Unknown 0.5 mg 0.5 mg 09-10- Matthew GUTIERRES tablet tablet omeprazole omeprazole 2018-07 Yes [place] Unknown Unknown 20 mg 20 mg - Matthew GUTIERRES capsule,del capsule,del ayed ayed release release osimertinib osimertinib 2018-07 Yes [place] Unknown Unknown 80 mg 80 mg 09-10 Matthew GUTIERRES tablet tablet ondansetron ondansetron 2018-07 Yes [place] Unknown Unknown 4 mg 4 mg 09-10 Matthew GUTIERRES disintegrat disintegrat ing tablet ing tablet oxyCODONE 5 oxyCODONE 5 2018-07 Yes [place] Unknown Unknown mg tablet mg tablet 09-10 Matthew GUTIERRES osimertinib osimertinib 2018-07 Yes [place] Unknown Unknown 40 mg 40 mg 09-17 ,Cherri tablet tablet morphine ER morphine ER 2018-07 Yes [place] Unknown Unknown 15 mg 15 mg 09-17 ,Cherri tablet,exte tablet,exte nded nded release release LORazepam 1 LORazepam 1 2018-07 Yes [place] Unknown Unknown mg tablet mg tablet - [...]
--- OUTSIDE RECORDS SUMMARY | 2019-07-31 15:04 | XMS REPORT ---
:1950 Author Organization [facility] Care Team Providers Name Role Phone Unavailable [...] [place] (generalize (generalize RN d) d) assisted meterman Diagnosis Active Loli (current) (current) [place] use of use of RN systemic systemic steroids steroids meterman meterman Diagnosis Active Loli (current) (current) [place] use of use of RN anticoagula anticoagula nts nts meterman meterman Diagnosis Active Loli (current) (current) [place] use of use of RN opiate opiate analgesic analgesic Pain frequent Pain Mgmt Active 2018-07 Linda pain 2- [place] 11:00: [id number] 00 Respiratory dyspnea Respirator Active 2018-07 Linda present y 2 [place] 11:00: [id number] 00 Integument skin Integument Resolve 2018-072019-07-14 Linda integrity d 2-12 10:30:00 [place] risk 11:00: [id number] Nutrition nutritional Nutrition Active 2018-07 Linda restriction 09-10 [place] s 11:00: [id number] 00 Nutrition changing Nutrition Active 2018-07 Linda weight/appe 09-10 [place] tite 11:00: [id number] 00 Elimination urinary Eliminatio Active 2018-07 Linda incontinenc n 09-10 [place] e 11:00: [id number] 00 Neuro confusion Neuro/Emot Active 2018-07 Linda present ion 09-10 [place] 11:00: [id number] 00 Neuro anxiety Neuro/Emot Active 2018-07 Linda present ion 09-10 [place] 11:00: [id number] 00 Activity ADL Activity Resolve 2018-072019-07-17 Linda assistance d 2-12 14:40:00 [place] required 11:00: [id number] Activity self-care Activity Resolve 2018-072019-07-14 Linda deficit d 2-12 10:30:00 [place] 11:00: [id number] 00 Safety cannot be Safety Resolve 2018-072019-07-17 Linda left alone d 2-12 14:40:00 [place] 11:00: [id number] 00 Safety fall risk Safety Resolve 2018-072019-07-17 Linda factor d 2-12 14:40:00 [place] present 11:00: [id number] 00 Safety risk for Safety Resolve 2018-072019-07-17 Linda hospitaliza d 2-12 14:40:00 [place] tion 11:00: [id number] 00 Medication oral med Meds Active 2018-07 Linda assistance 09-10 [place] required 11:00: [id number] 00 Medication knowledge/s Meds Active 2018-07 Linda kill 09-10 [place] deficit: pt 11:00: [id number] 00 Diagnoses knowledge/s Diagnoses Active 2018-07 Linda kill 09-10 [place] deficit: pt 11:00: [id number] 00 Diagnoses knowledge/s Diagnoses Active 2018-07 Linda kill 09-10 [place] deficit: cg 11:00: [id number] 00 Musculoskel transfer Musculoske Active 2018-07 Linda etal assistance letal 09-10 [place] required 11:00: [id number] 00 Musculoskel requires Musculoske Active 2018-07 Linda etal human letal 2-12 [place] assist to 11:00: [id number] leave home 00 Nutrition nutritional Nutrition Active 2018-07 [place]ese risk 2-12 [place] 15:25: [id number] 00 Bed transfer PT/OT: Bed Active 2018-07 [place] Mobility/Tr deficit: Mobility/T 2-12 [place] maierfer sit/stand ransfer 15:25: [id number] 00 Bed transfer PT/OT: Bed Active 2018-07 [place] Mobility/Tr deficit: Mobility/T 2-12 [place] toilet/comm ransfer 15:25: [id number] ode 00 Bed transfer PT/OT: Bed Active 2018-07 [place] Mobility/Tr deficit: Mobility/T 2-12 [place] ansfer shower/tub ransfer 15:25: [id number] 00 Bed transfer PT/OT: Bed Active 2018-07 [place] Mobility/Tr deficit: Mobility/T 2-12 [place] ansfer vehicle ransfer 15:25: [id number] 00 Bed knowledge/s PT/OT: Bed Active 2018-07 [place] Mobility/Tr kill Mobility/T 2-12 [place] ansfer deficit: pt ransfer 15:25: [id number] 00 Bed bed PT/OT: Bed Active 2018-07 [place] Mobility/Tr mobility Mobility/T 2-12 [place] ansfer deficit ransfer 15:25: [id number] 00 Gait/Locomo gait PT/OT: Active 2018-07 [place] tion assistive Gait/Locom 2-12 [place] problems device otion 15:25: [id number] present 00 Gait/Locomo knowledge/s PT/OT: Active 2018-07 [place] tion kill Gait/Locom 2-12 [place] problems deficit: pt otion 15:25: [id number] 00 Gait/Locomo gait PT/OT: Active 2018-07 [place]ese tion deficit Gait/Locom 2-12 [place] problems otion 15:25: [id number] 00 Safety risk for Safety Active 2018-07 Ashley hospitaliza 09-21 [place] tion 13:00: [id number] 24 Hr Diet nutrition NT: 24Hr Resolve 2018-072019-07-21 Ashley intake Diet d 2- 13:00:00 [place] deficit 13:00: [id number] 00 24 Hr Diet knowledge/s NT: 24Hr Resolve 2018-072019-07-21 Ashley kill Diet d - 13:00:00 [place] deficit - 13:00: [id number] pt 00 24 Hr Diet knowledge/s NT: 24Hr Resolve 2018-072019-07-21 Ashley kill Diet d 09-21 13:00:00 [place] deficit - 13:00: [id number] cg 00 Nutritional eating NT: Resolve 2018-072019-07-21 Ashley Barrier difficultie Barriers d 09-21 13:00:00 [place] s present 13:00: [id number] Neuro impaired Neuro/Emot Active 2018-07 Loli [...] (SIG) Name Name acetaminoph acetaminoph 2018-07 Yes [place] Unknown Unknown en 500 mg en 500 mg 09-10 Matthew GUTIERRES tablet tablet dexAMETHaso dexAMETHaso 2018-07 Yes [place] Unknown Unknown ne 2 mg ne 2 mg 09-10 Matthew GUTIERRES tablet tablet furosemide furosemide 2018-07- Yes [place] Unknown Unknown 20 mg 20 mg 09-10 Matthew GUTIERRES tablet tablet morphine ER morphine ER 2018-07- Yes [place] Unknown Unknown 15 mg 15 mg 09-10 Matthew GUTIERRES tablet,exte tablet,exte nded nded release release Klor-Con Klor-Con 2018-07- Yes [place] Unknown Unknown M20 mEq M20 mEq 09-10 Matthew GUTIERRES tablet,exte tablet,exte nded nded release release LORazepam LORazepam 2018-07- Yes [place] Unknown Unknown 0.5 mg 0.5 mg 09-10 Matthew GUTIERRES tablet tablet omeprazole omeprazole 2018-07 Yes [place] Unknown Unknown 20 mg 20 mg 09-10 Matthew GUTIERRES capsule,del capsule,del ayed ayed release release osimertinib osimertinib 2018-07- Yes [place] Unknown Unknown 80 mg 80 mg 09-10- Matthew GUTIERRES tablet tablet ondansetron ondansetron 2018-07 Yes [place] Unknown Unknown 4 mg 4 mg 09-10 Matthew GUTIERRES disintegrat disintegrat ing tablet ing tablet oxyCODONE 5 oxyCODONE 5 2018-07 Yes [place] Unknown Unknown mg tablet mg tablet 09-10 Matthew GUTIERRES osimertinib osimertinib 2018-07 Yes [place] Unknown Unknown 40 mg 40 mg 09-17 Cherri GUTIERRES tablet tablet morphine ER morphine ER 2018-07 Yes [place] Unknown Unknown 15 mg 15 mg 09-17 Cherri GUTIERRES tablet,exte tablet,exte nded nded release release LORazepam 1 LORazepam 1 2018-07 Yes [place] Unknown Unknown mg tablet mg tablet 09-17 [...]
--- OUTSIDE RECORDS SUMMARY | 2019-07-31 15:04 | XMS REPORT ---
:1950 Author Organization [facility] Care Team Providers Name Role Phone Unavailable [...] weakness [place] (generalize (generalize RN d) d) exterminator assisted Diagnosis Active Loli (current) (current) [place] use of use of RN systemic systemic steroids steroids assisted exterminator Diagnosis Active Loli (current) (current) [place] use of use of RN anticoagula anticoagula nts nts assisted exterminator Diagnosis Active Loli (current) (current) [place] use of use of RN opiate opiate analgesic analgesic Pain frequent Pain Mgmt Active 2018-07 Linda pain 2- [place] 11:00: [id number] 00 Respiratory dyspnea Respirator Active 2018-07 Linda present y 2 [place] 11:00: [id number] 00 Integument skin Integument Resolve 2018-072019-07-14 Linda integrity d 2-12 10:30:00 [place] risk 11:00: [id number] 00 Nutrition nutritional Nutrition Active 2018-07 Linda restriction - [place] s 11:00: [id number] 00 Nutrition changing Nutrition Active 2018-07 Linda weight/appe 09-10 [place] tite 11:00: [id number] 00 Elimination urinary Eliminatio Resolve 2018-072019-07-28 Linda incontinenc n d 2-12 13:56:00 [place] e 11:00: [id number] 00 Neuro confusion Neuro/Emot Active 2018-07 Linda present ion 09-10 [place] 11:00: [id number] Neuro anxiety Neuro/Emot Active 2018-07 Linda present ion 09-10 [place] 11:00: [id number] 00 Activity ADL Activity Resolve 2018-072019-07-17 Linda assistance d 2-12 14:40:00 [place] required 11:00: [id number] 00 Activity self-care Activity Resolve 2018-072019-07-14 Linda deficit d 2-12 10:30:00 [place] 11:00: [id number] 00 Safety cannot be Safety Resolve 2018-072019-07-17 Linda left alone d 2-12 14:40:00 [place] 11:00: [id number] 00 Safety fall risk Safety Resolve 2018-072019-07-17 Linda factor d 2-12 14:40:00 [place] present 11:00: [id number] 00 Safety risk for Safety Resolve 2018-072019-07-17 Linda hospitaliza d 2-12 14:40:00 [place] tion 11:00: [id number] 00 Medication oral med Meds Resolve 2018-072019-07-28 Linda assistance d 2-12 13:56:00 [place] required 11:00: [id number] 00 Medication knowledge/s Meds Resolve 2018-072019-07-28 Linda kill d 2-12 13:56:00 [place] deficit: pt 11:00: [id number] 00 Diagnoses knowledge/s Diagnoses Active 2018-07 Linda kill - [place] deficit: pt 11:00: [id number] 00 Diagnoses knowledge/s Diagnoses Active 2018-07 Linda kill 09-10 [place] deficit: cg 11:00: [id number] 00 Musculoskel transfer Musculoske Active 2018-07 Linda etal assistance letal - [place] required 11:00: [id number] 00 Musculoskel requires Musculoske Active 2018-07 Linda etal human letal 2 [place] assist to 11:00: [id number] leave home 00 Nutrition nutritional Nutrition Active 2018-07 Reese risk 2-12 [place] 15:25: [id number] 00 Bed transfer PT/OT: Bed Active 2018-07 [place] Mobility/Tr deficit: Mobility/T 2-12 [place] ansfer sit/stand ransfer 15:25: [id number] 00 Bed transfer PT/OT: Bed Active 2018-07 [place] Mobility/Tr deficit: Mobility/T 2-12 [place] ansfer toilet/comm ransfer 15:25: [id number] ode 00 Bed transfer PT/OT: Bed Active 2018-07 [place] Mobility/Tr deficit: Mobility/T 2-12 Tank ansfer shower/tub ransfer 15:25: [id number] 00 Bed transfer PT/OT: Bed Active 2018-07 [place] Mobility/Tr deficit: Mobility/T 2-12 Tank ansfer vehicle ransfer 15:25: [id number] 00 Bed knowledge/s PT/OT: Bed Active 2018-07 [place] Mobility/Tr kill Mobility/T 2-12 [place] ansfer deficit: pt ransfer 15:25: [id number] 00 Bed bed PT/OT: Bed Active 2018-07 [place] Mobility/Tr mobility Mobility/T 2-12 [place] ansfer deficit ransfer 15:25: [id number] 00 Gait/Locomo gait PT/OT: Active 2018-07 Re[place] tion assistive Gait/Locom 2-12 [place] problems device otion 15:25: [id number] present 00 Gait/Locomo knowledge/s PT/OT: Active 2018-07 Reese tion kill Gait/Locom 2-12 [place] problems deficit: pt otion 15:25: [id number] 00 Gait/Locomo gait PT/OT: Active 2018-07 Reese tion deficit Gait/Locom 2-12 [place] problems otion 15:25: [id number] 00 Safety risk for Safety Active 2018-07 Ashley antunez 2-23 [place] tion 13:00: [id number] 00 24 Hr Diet nutrition NT: 24Hr Active 2018-07 Ashley intake Diet 09-21 [place] deficit 13:00: [id number] 00 24 Hr Diet knowledge/s NT: 24Hr Resolve 2018-072019-07-21 Ashley kill Diet d 09-21 13:00:00 [place] deficit - 13:00: [id number] pt 00 24 Hr Diet knowledge/s NT: 24Hr Resolve 2018-072019-07-21 Ashley kill Diet d 09-21 13:00:00 [place] deficit - 13:00: [id number] cg 00 Nutritional eating NT: Resolve 2018-072019-07-21 Ashley Barrier difficultie Barriers d 09-21 13:00:00 [place] s present 13:00: [id number] 00 Neuro impaired Neuro/Emot Active 2018-07 Loli [...] (SIG) Name Name acetaminoph acetaminoph 2018-07 Yes [place] Unknown Unknown en 500 mg en 500 mg 09-10 Matthew GUTIERRES tablet tablet dexAMETHaso dexAMETHaso 2018-07 Yes [place] Unknown Unknown ne 2 mg ne 2 mg 09-10 Matthew GUTIERRES tablet tablet furosemide furosemide 2018-07- Yes [place] Unknown Unknown 20 mg 20 mg 09-10 Matthew GUTIERRES tablet tablet morphine ER morphine ER 2018-07- Yes [place] Unknown Unknown 15 mg 15 mg 09-10 Matthew GUTIERRES tablet,exte tablet,exte nded nded release release Klor-Con Klor-Con 2018-07- Yes [place] Unknown Unknown M20 mEq M20 mEq 09-10 Matthew GUTIERRES tablet,exte tablet,exte nded nded release release LORazepam LORazepam 2018-07 Yes [place] Unknown Unknown 0.5 mg 0.5 mg 09-10- Matthew GUTIERRES tablet tablet omeprazole omeprazole 2018-07 Yes [place] Unknown Unknown 20 mg 20 mg - Matthew GUTIERRES capsule,del capsule,del ayed ayed release release osimertinib osimertinib 2018-07 Yes [place] Unknown Unknown 80 mg 80 mg 09-10 Matthew GUTIERRES tablet tablet ondansetron ondansetron 2018-07 Yes [place] Unknown Unknown 4 mg 4 mg 09-10 Matthew GUTIERRES disintegrat disintegrat ing tablet ing tablet oxyCODONE 5 oxyCODONE 5 2018-07 Yes [place] Unknown Unknown mg tablet mg tablet 09-10 Matthew GUTIERRES osimertinib osimertinib 2018-07 Yes [place] Unknown Unknown 40 mg 40 mg 09-17 ,Cherri tablet tablet morphine ER morphine ER 2018-07 Yes [place] Unknown Unknown 15 mg 15 mg 09-17 ,Cherri tablet,exte tablet,exte nded nded release release LORazepam 1 LORazepam 1 2018-07 Yes [place] Unknown Unknown mg tablet mg tablet - [...]
--- OUTSIDE RECORDS SUMMARY | 2019-07-31 15:05 | XMS REPORT ---
:1950 Author Organization [facility] Care Team Providers Name Role Phone Unavailable Unavailable Unavailable Problems Condition Condition Condition Status Onset Resolution Last Treating Comments Name Details Category Date Date Treatment Clinician Date Pain frequent Pain Mgmt Active 2018-07 Linda pain 09-10 [place] 11:00: [id number] 00 Respiratory dyspnea Respirator Active 2018-07 Linda present y 09-10 [place] 11:00: [id number] 00 Integument skin Integument Active 2018-07 Linda integrity 09-10 [place] risk 11:00: [id number] 00 Nutrition nutritional Nutrition Active 2018-07 Linda restriction 09-10 [place] s 11:00: [id number] 00 Nutrition changing Nutrition Active 2018-07 Linda weight/appe 09-10 [place] tite 11:00: [id number] 00 Elimination urinary Eliminatio Active 2018-07 Linda incontinenc n 09-10 [place] e 11:00: [id number] 00 Neuro confusion Neuro/Emot Active 2018-07 Linda present ion 09-10 [place] 11:00: [id number] 00 Neuro anxiety Neuro/Emot Active 2018-07 Linda present ion 09-10 [place] 11:00: [id number] 00 Activity ADL Activity Active 2018-07 Linda assistance 09-10 [place] required 11:00: [id number] 00 Activity self-care Activity Active 2018-07 Linda deficit 09-10 [place] 11:00: [id number] 00 Safety cannot be Safety Active 2018-07 Linda left alone 09-10 [place] 11:00: [id number] 00 Safety fall risk Safety Active 2018-07 Linda factor 09-10 [place] present 11:00: [id number] 00 Safety risk for Safety Active 2018-07 Linda hospitaliza 09-10 [place] tion 11:00: [id number] 00 Medication oral med Meds Active 2018-07 Linda assistance 09-10 [place] required 11:00: [id number] 00 Medication knowledge/s Meds Active 2018-07 Linda harper 09-10 [place] deficit: pt 11:00: [id number] 00 Diagnoses knowledge/s Diagnoses Active 2018-07 Linda harper 09-10 [place] deficit: pt 11:00: [id number] 00 Diagnoses knowledge/s Diagnoses Active 2018-07 Linda harper 09-10 [place] deficit: cg 11:00: [id number] 00 Musculoskel transfer Musculoske Active 2018-07 Linda etal assistance letal 09-10 [place] required 11:00: [id number] 00 Musculoskel requires Musculoske Active 2018-07 Linda etal human letal 09-10 [place] assist to 11:00: [id number] leave home 00 Nutrition nutritional Nutrition Active 2018-07 [place] risk 09-10 [place] 15:25: [id number] 00 Allergies, Adverse Reactions, Alerts Allergy Name Allergy Status Severity Reaction(s) Onset Inactive Treating Comments Type Date Date Clinician streptomycin Base Active Unknown Reaction 2018-07 Interface Ingredient Unknown 08-17 Medications Ordered Filled Start Stop Current Ordering Indication Dosage Frequency Signature Comments Components Medication Medication Date Date Medication? Clinician (SIG) Name Name acetaminoph acetaminoph 2018-07 Yes [place] Unknown Unknown en 500 mg en 500 mg 2-12 Matthew GUTIERRES tablet tablet dexAMETHaso dexAMETHaso 2018-07 Yes [place] Unknown Unknown ne 2 mg ne 2 mg 2-12 Matthew GUTIERRES tablet tablet furosemide furosemide 2018-07 Yes [place] Unknown Unknown 20 mg 20 mg 2-12 Matthew GUTIERRES tablet tablet morphine ER morphine ER 2018-07 Yes [place] Unknown Unknown 15 mg 15 mg 2-12 Matthew GUTIERRES tablet,exte tablet,exte nded nded release release Klor-Con Klor-Con 2018-07 Yes [place] Unknown Unknown M20 mEq M20 mEq 2-12 Matthew GUTIERRES tablet,exte tablet,exte nded nded release release LORazepam LORazepam 2018-07 Yes [place] Unknown Unknown 0.5 mg 0.5 mg 2-12 Matthew GUTIERRES tablet tablet omeprazole omeprazole 2018-07 Yes [place] Unknown Unknown 20 mg 20 mg 2-12 Matthew GUTIERRES capsule,del capsule,del ayed ayed release release osimertinib osimertinib 2018-07 Yes [place] Unknown Unknown 80 mg 80 mg 2-12 Matthew GUTIERRES tablet tablet ondansetron ondansetron 2018-07 Yes [place] Unknown Unknown 4 mg 4 mg 09-10 Matthew GUTIERRES disintegrat disintegrat ing tablet ing tablet oxyCODONE 5 oxyCODONE 5 2018-07 Yes [place] Unknown Unknown mg tablet mg tablet 09-10 Matthew GUTIERRES Vital Signs Vital Name Observation Time Observation Value Comments SYSTOLIC mm[Hg] 2019-07-10 18:09:19 100 mm[Hg] mm[Hg] Method: Sit SYSTOLIC mm[Hg] 2019-07-10 18:09:19 104 mm[Hg] mm[Hg] Method: Stand DIASTOLIC mm[Hg] 2019-07-10 18:09:19 60 mm[Hg] mm[Hg] Method: Sit DIASTOLIC mm[Hg] 2019-07-10 18:09:19 66 mm[Hg] mm[Hg] Method: Stand PULSE 2019-07-10 18:09:19 68 /min /min RESP RATE 2019-07-10 18:09:19 14 /min /min TEMP 2019-07-10 18:09:19 99.1 [degF] Procedures This patient has no known procedures. Results This patient has no known results.
--- OUTSIDE RECORDS SUMMARY | 2019-07-31 15:05 | XMS REPORT ---
:1950 Author Organization [facility] Care Team Providers Name Role Phone Unavailable [...] weakness [place] (generalize (generalize RN d) d) medical terminologist FDC Diagnosis Active [place]oli (current) (current) [place] use of use of RN systemic systemic steroids steroids medical terminologist medical terminologist Diagnosis Active [place] (current) (current) [place] use of use of RN anticoagula anticoagula nts nts medical terminologist medical terminologist Diagnosis Active [place] (current) (current) [place] use of use of RN opiate opiate analgesic analgesic Pain frequent Pain Mgmt Active 2018-07 Linda pain 2- [place] 11:00: [id number] Respiratory dyspnea Respirator Active 2018-07 Linda present y 2 [place] 11:00: [id number] 00 Integument skin Integument Resolve 2018-072019-07-14 Linda integrity d 2- 10:30:00 [place] risk 11:00: [id number] Nutrition nutritional Nutrition Active 2018-07 Linda restriction 09-10 [place] s 11:00: [id number] 00 Nutrition changing Nutrition Active 2018-07 Linda weight/appe 09-10 [place] tite 11:00: [id number] Elimination urinary Eliminatio Active 2018-07 Linda incontinenc n 09-10 [place] e 11:00: [id number] 00 Neuro confusion Neuro/Emot Active 2018-07 Linda present ion 09-10 [place] 11:00: [id number] Neuro anxiety Neuro/Emot Active 2018-07 Linda present ion 09-10 [place] 11:00: [id number] Activity ADL Activity Active 2018-07 Linda assistance 09-10 [place] required 11:00: [id number] Activity self-care Activity Resolve 2018-072019-07-14 Linda deficit d 09-10 10:30:00 [place] 11:00: [id number] 00 Safety cannot be Safety Active 2018-07 Linda left alone 09-10 [place] 11:00: [id number] 00 Safety fall risk Safety Active 2018-07 Linda factor 09-10 [place] present 11:00: [id number] 00 Safety risk for Safety Active 2018-07 Linda hospitaliza 09-10 [place] tion 11:00: [id number] 00 Medication oral med Meds Active 2018-07 Linda assistance 09-10 [place] required 11:00: [id number] 00 Medication knowledge/s Meds Active 2018-07 Linda kill 09-10 [place] deficit: pt 11:00: [id number] Diagnoses knowledge/s Diagnoses Active 2018-07 Linda kill 09-10 [place] deficit: pt 11:00: [id number] 00 Diagnoses knowledge/s Diagnoses Active 2018-07 Linda kill 09-10 [place] deficit: cg 11:00: [id number] 00 Musculoskel transfer Musculoske Active 2018- Linda etal assistance letal 09-10 [place] required 11:00: [id number] 00 Musculoskel requires Musculoske Active 2018-07 Linda etal human letal 09-10 [place] assist to 11:00: [id number] leave home 00 Nutrition nutritional Nutrition Active 2018-07 [place] risk 09-10 [place] 15:25: [id number] 00 Allergies, Adverse Reactions, Alerts Allergy Name Allergy Status Severity Reaction(s) Onset Inactive Treating Comments Type Date Date Clinician streptomycin Base Active Unknown Reaction 2018-07 Interface Ingredient Unknown 08-17 Medications Ordered Filled Start Stop Current Ordering Indication Dosage Frequency Signature Comments Components Medication Medication Date Date Medication? Clinician (SIG) Name Name acetaminoph acetaminoph 2018-07 Yes [place] Unknown Unknown en 500 mg en 500 mg 2-12 Matthew GUTIERRES tablet tablet dexAMETHaso dexAMETHaso 2018-07 Yes [place] Unknown Unknown ne 2 mg ne 2 mg 2-12 Matthew GUTIERRES tablet tablet furosemide furosemide 2018-07 Yes [place] Unknown Unknown 20 mg 20 mg 2-12 Matthew GUTIERRES tablet tablet morphine ER morphine ER 2018-07 Yes [place] Unknown Unknown 15 mg 15 mg 2-12 Matthew GUTIERRES tablet,exte tablet,exte nded nded release release Klor-Con Klor-Con 2018-07 Yes [place] Unknown Unknown M20 mEq M20 mEq 212 Matthew GUTIERRES tablet,exte tablet,exte nded nded release release LORazepam LORazepam 2018-07 Yes [place] Unknown Unknown 0.5 mg 0.5 mg 2-12 Matthew GUTIERRES tablet tablet omeprazole omeprazole 2018-07 Yes [place] Unknown Unknown 20 mg 20 mg 2-12 Matthew GUTIERRES capsule,del capsule,del ayed ayed release release osimertinib osimertinib 2018-07 Yes [place] Unknown Unknown 80 mg 80 mg 2-12 Matthew GUTIERRES tablet tablet ondansetron ondansetron 2018-07 Yes [place] Unknown Unknown 4 mg 4 mg 2-12 Matthew GUTIERRES disintegrat disintegrat ing tablet ing tablet oxyCODONE 5 oxyCODONE 5 2018-07 Yes [place] Unknown Unknown mg tablet mg tablet 2-12 Matthew GUTIERRES Vital Signs Vital Name Observation Time Observation Value Comments SYSTOLIC mm[Hg] 2019-07-14 18:09:23 110 mm[Hg] mm[Hg] Method: Sit SYSTOLIC mm[Hg] 2019-07-10 18:09:19 104 mm[Hg] mm[Hg] Method: Stand DIASTOLIC mm[Hg] 2019-07-14 18:09:23 70 mm[Hg] mm[Hg] Method: Sit DIASTOLIC mm[Hg] 2019-07-10 18:09:19 66 mm[Hg] mm[Hg] Method: Stand PULSE 2019-07-14 18:09:23 89 /min /min RESP RATE 2019-07-14 18:09:23 16 /min /min TEMP 2019-07-14 18:09:23 98.2 [degF] Procedures This patient has no known procedures. Results This patient has no known results.
--- OUTSIDE RECORDS SUMMARY | 2019-07-31 15:05 | XMS REPORT ---
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 Diagnosis Active [place]oli (current) (current) [place] use of use of RN opiate opiate analgesic analgesic Pain frequent Pain Mgmt Active 2018-07 Linda pain 2- [place] 11:00: [id number] 00 Respiratory dyspnea Respirator Active 2018-07 Linda present y 2 [place] 11:00: [id number] 00 Integument skin Integument Resolve 2018-072019-07-14 Linda integrity d 2- 10:30:00 [place] risk 11:00: [id number] 00 Nutrition nutritional Nutrition Active 2018-07 Linda restriction 09-10 [place] s 11:00: [id number] 00 Nutrition changing Nutrition Active 2018-07 Linda weight/appe 09-10 [place] tite 11:00: [id number] 00 Elimination urinary Eliminatio Active 2018-07 Linda incontinenc n 09-10 [place] e 11:00: [id number] 00 Neuro confusion Neuro/Emot Active 2018-07 Linda present ion 09-10 [place] 11:00: [id number] 00 Neuro anxiety Neuro/Emot Active 2018-07 Linda present ion 09-10 [place] 11:00: [id number] Activity ADL Activity Active 2018-07 Linda assistance 09-10 [place] required 11:00: [id number] 00 Activity self-care Activity Resolve 2018-072019-07-14 Linda deficit d 09-10 10:30:00 [place] 11:00: [id number] 00 Safety cannot be Safety Active 2018-07 Linda left alone 09-10 [place] 11:00: [id number] 00 Safety fall risk Safety Active 2018-07 Linda factor 09-10 [place] present 11:00: [id number] Safety risk for Safety Active 2018-07 Linda hospitaliza 09-10 [place] tion 11:00: [id number] 00 Medication oral med Meds Active 2018-07 Linda assistance 09-10 [place] required 11:00: [id number] 00 Medication knowledge/s Meds Active 2018-07 Linda kill 09-10 [place] deficit: pt 11:00: [id number] 00 Diagnoses knowledge/s Diagnoses Active 2018-07 Linda kill 09-10 [place] deficit: pt 11:00: [id number] 00 Diagnoses knowledge/s Diagnoses Active 2018-07 Linda kill 09-10 [place] deficit: cg 11:00: [id number] 00 Musculoskel transfer Musculoske Active 2018- Linda etal assistance letal 09-10 [place] required 11:00: [id number] 00 Musculoskel requires Musculoske Active 2018-07 Linda etal human letal 09-10 [place] assist to 11:00: [id number] leave home 00 Nutrition nutritional Nutrition Active 2018-07 [place] risk 2-12 [place] 15:25: [id number] 00 Bed transfer PT/OT: Bed Active 2018-07 [place] Mobility/Tr deficit: Mobility/T 2-12 Tank ansfer sit/stand ransfer 15:25: [id number] 00 Bed transfer PT/OT: Bed Active 2018-07 [place] Mobility/Tr deficit: Mobility/T 2-12 Tank ansfer toilet/comm ransfer 15:25: [id number] ode 00 Bed transfer PT/OT: Bed Active 2018-07 [place] Mobility/Tr deficit: Mobility/T 2-12 Tank ansfer shower/tub ransfer 15:25: [id number] 00 Bed transfer PT/OT: Bed Active 2018-07 [place] Mobility/Tr deficit: Mobility/T 2-12 [place] ansfer vehicle ransfer 15:25: [id number] 00 Bed knowledge/s PT/OT: Bed Active 2018-07 [place] Mobility/Tr kill Mobility/T 2-12 Tank ansfer deficit: pt ransfer 15:25: [id number] 00 Bed bed PT/OT: Bed Active 2018-07 [place] Mobility/Tr mobility Mobility/T 2-12 Tank ansfer deficit ransfer 15:25: [id number] 00 Gait/Locomo gait PT/OT: Active 2018-07 Reese tion assistive Gait/Locom 2-12 [place] problems device otion 15:25: [id number] present 00 Gait/Locomo knowledge/s PT/OT: Active 2018-07 Reese tion kill Gait/Locom 2-12 [place] problems deficit: pt otion 15:25: [id number] 00 Gait/Locomo gait PT/OT: Active 2018-07 Reese tion deficit Gait/Locom 2-12 Tank problems otion 15:25: [id number] 00 Allergies, Adverse Reactions, Alerts Allergy Name Allergy Status Severity Reaction(s) Onset Inactive Treating Comments Type Date Date Clinician streptomycin Base Active Unknown Reaction 2018-07 Interface Ingredient Unknown 08-17 Medications Ordered Filled Start Stop Current Ordering Indication Dosage Frequency Signature Comments Components Medication Medication Date Date Medication? Clinician (SIG) Name Name acetaminoph acetaminoph 2018-07 Yes [place] Unknown Unknown en 500 mg en 500 mg 2-12 Matthew GUTIERRES tablet tablet dexAMETHaso dexAMETHaso 2018-07 Yes [place] Unknown Unknown ne 2 mg ne 2 mg 2-12 MD, tablet tablet furosemide furosemide 2018-07 Yes [place] Unknown Unknown 20 mg 20 mg 2-12 MD, tablet tablet morphine ER morphine ER 2018-07 Yes [place] Unknown Unknown 15 mg 15 mg 2-12 MD, tablet,exte tablet,exte nded nded release release Klor-Con Klor-Con 2018-07 Yes [place] Unknown Unknown M20 mEq M20 mEq 2-12 , tablet,exte tablet,exte nded nded release release LORazepam LORazepam 2018-07 Yes [place] Unknown Unknown 0.5 mg 0.5 mg 2-12 MD, tablet tablet omeprazole omeprazole 2018-07 Yes [place] Unknown Unknown 20 mg 20 mg 2-12 , capsule,del capsule,del ayed ayed release release osimertinib osimertinib 2018-07 Yes [place] Unknown Unknown 80 mg 80 mg 2-12 , tablet tablet ondansetron ondansetron 2018-07 Yes [place] Unknown Unknown 4 mg 4 mg 2-12 Matthew GUTIERRES disintegrat disintegrat ing tablet ing tablet oxyCODONE 5 oxyCODONE 5 2018-07 Yes [place] Unknown Unknown mg tablet mg tablet 2-12 Matthew GUTIERRES Vital Signs Vital Name Observation Time Observation Value Comments SYSTOLIC mm[Hg] 2019-07-17 18:09:26 120 mm[Hg] mm[Hg] Method: Sit SYSTOLIC mm[Hg] 2019-07-10 18:09:19 104 mm[Hg] mm[Hg] Method: Stand DIASTOLIC mm[Hg] 2019-07-17 18:09:26 70 mm[Hg] mm[Hg] Method: Sit DIASTOLIC mm[Hg] 2019-07-10 18:09:19 66 mm[Hg] mm[Hg] Method: Stand PULSE 2019-07-17 18:09:26 80 /min /min RESP RATE 2019-07-14 18:09:23 16 /min /min TEMP 2019-07-17 18:09:26 98.7 [degF] Procedures This patient has no known procedures. Results This patient has no known results.
--- OUTSIDE RECORDS SUMMARY | 2019-07-31 15:05 | XMS REPORT ---
:1950 Author Organization [facility] Care Team Providers Name Role Phone Unavailable [...] weakness [place] (generalize (generalize RN d) d) [facility] rodent exterminator Diagnosis Active Loli (current) (current) [place] use of use of RN systemic systemic steroids steroids rodent exterminator rodent exterminator Diagnosis Active [place]oli (current) (current) [place] use of use of RN anticoagula anticoagula nts nts rodent exterminator rodent exterminator Diagnosis Active [place]oli (current) (current) [place] use of use of RN opiate opiate analgesic analgesic Pain frequent Pain Mgmt Active 2018-07 Linda pain 2- [place] 11:00: [id number] 00 Respiratory dyspnea Respirator Active 2018-07 Linda present y 2 [place] 11:00: [id number] 00 Integument skin Integument Resolve 2018-072019-07-14 Linda integrity d 2- 10:30:00 [place] risk 11:00: [id number] 00 Nutrition nutritional Nutrition Active 2018-07 Linda restriction 09-10 [place] s 11:00: [id number] 00 Nutrition changing Nutrition Active 2018-07 Linda weight/appe 09-10 [place] tite 11:00: [id number] 00 Elimination urinary Eliminatio Active 2018-07 Linda incontinenc n 09-10 [place] e 11:00: [id number] 00 Neuro confusion Neuro/Emot Active 2018-07 Linda present ion 09-10 [place] 11:00: [id number] 00 Neuro anxiety Neuro/Emot Active 2018-07 Linda present ion 09-10 [place] 11:00: [id number] 00 Activity ADL Activity Active 2018-07 Linda assistance 09-10 [place] required 11:00: [id number] 00 Activity self-care Activity Resolve 2018-072019-07-14 Linda deficit d 09-10 10:30:00 [place] 11:00: [id number] 00 Safety cannot be Safety Active 2018-07 Linda left alone 09-10 [place] 11:00: [id number] 00 Safety fall risk Safety Active 2018-07 Linda factor 09-10 [place] present 11:00: [id number] 00 Safety risk for Safety Active 2018-07 Linda hospitaliza 09-10 [place] tion 11:00: [id number] 00 Medication oral med Meds Active 2018-07 Linda assistance 09-10 [place] required 11:00: [id number] 00 Medication knowledge/s Meds Active 2018-07 Linda kill 09-10 [place] deficit: pt 11:00: [id number] 00 Diagnoses knowledge/s Diagnoses Active 2018-07 Linda kill 09-10 [place] deficit: pt 11:00: [id number] 00 Diagnoses knowledge/s Diagnoses Active 2018-07 Linda kill 09-10 [place] deficit: cg 11:00: [id number] 00 Musculoskel transfer Musculoske Active 2018- Linda etal assistance letal 09-10 [place] required 11:00: [id number] 00 Musculoskel requires Musculoske Active 2018-07 Linda etal human letal 09-10 [place] assist to 11:00: [id number] leave home 00 Nutrition nutritional Nutrition Active 2018-07 [place] risk 2-12 [place] 15:25: [id number] 00 Bed transfer PT/OT: Bed Active 2018-07 [place] Mobility/Tr deficit: Mobility/T 2-12 [place] ansfer sit/stand ransfer 15:25: [id number] 00 Bed transfer PT/OT: Bed Active 2018-07 [place] Mobility/Tr deficit: Mobility/T 2-12 [place] ansfer toilet/comm ransfer 15:25: [id number] ode 00 Bed transfer PT/OT: Bed Active 2018-07 [place] Mobility/Tr deficit: Mobility/T 2-12 [place] ansfer shower/tub ransfer 15:25: [id number] 00 Bed transfer PT/OT: Bed Active 2018-07 [place] Mobility/Tr deficit: Mobility/T 2-12 [place] ansfer vehicle ransfer 15:25: [id number] 00 Bed knowledge/s PT/OT: Bed Active 2018-07 [place] Mobility/Tr kill Mobility/T 2-12 [place] ansfer deficit: pt ransfer 15:25: [id number] 00 Bed bed PT/OT: Bed Active 2018-07 [place] Mobility/Tr mobility Mobility/T 2-12 [place] ansfer deficit ransfer 15:25: [id number] 00 Gait/Locomo gait PT/OT: Active 2018-07 [place] tion assistive Gait/Locom 2-12 [place] problems device otion 15:25: [id number] present 00 Gait/Locomo knowledge/s PT/OT: Active 2018-07 [place] tion kill Gait/Locom 2-12 [place] problems deficit: pt otion 15:25: [id number] 00 Gait/Locomo gait PT/OT: Active 2018-07 [place] tion deficit Gait/Locom 2-12 [place] problems otion 15:25: [id number] 00 Allergies, Adverse Reactions, Alerts Allergy Name Allergy Status Severity Reaction(s) Onset Inactive Treating Comments Type Date Date Clinician streptomycin Base Active Unknown Reaction 2018-07 Interface Ingredient Unknown 08-17 Medications Ordered Filled Start Stop Current Ordering Indication Dosage Frequency Signature Comments Components Medication Medication Date Date Medication? Clinician (SIG) Name Name acetaminoph acetaminoph 2018-07 Yes [place] Unknown Unknown en 500 mg en 500 mg 2-12 Matthew GUTIERRES tablet tablet dexAMETHaso dexAMETHaso 2018-07 Yes [place] Unknown Unknown ne 2 mg ne 2 mg 2-12 MD, tablet tablet furosemide furosemide 2018-07 Yes [place] Unknown Unknown 20 mg 20 mg 2-12 MD, tablet tablet morphine ER morphine ER 2018-07 Yes [place] Unknown Unknown 15 mg 15 mg 2-12 MD, tablet,exte tablet,exte nded nded release release Klor-Con Klor-Con 2018-07 Yes [place] Unknown Unknown M20 mEq M20 mEq 2-12 , tablet,exte tablet,exte nded nded release release LORazepam LORazepam 2018-07 Yes [place] Unknown Unknown 0.5 mg 0.5 mg 2-12 MD, tablet tablet omeprazole omeprazole 2018-07 Yes [place] Unknown Unknown 20 mg 20 mg 2-12 , capsule,del capsule,del ayed ayed release release osimertinib osimertinib 2018-07 Yes [place] Unknown Unknown 80 mg 80 mg 2-12 , tablet tablet ondansetron ondansetron 2018-07 Yes [place] Unknown Unknown 4 mg 4 mg 2-12 Matthew GUTIERRES disintegrat disintegrat ing tablet ing tablet oxyCODONE 5 oxyCODONE 5 2018-07 Yes [place] Unknown Unknown mg tablet mg tablet 2-12 Matthew GUTIERRES Vital Signs Vital Name Observation Time Observation Value Comments SYSTOLIC mm[Hg] 2019-07-15 18:09:24 100 mm[Hg] mm[Hg] Method: Sit SYSTOLIC mm[Hg] 2019-07-10 18:09:19 104 mm[Hg] mm[Hg] Method: Stand DIASTOLIC mm[Hg] 2019-07-15 18:09:24 60 mm[Hg] mm[Hg] Method: Sit DIASTOLIC mm[Hg] 2019-07-10 18:09:19 66 mm[Hg] mm[Hg] Method: Stand PULSE 2019-07-15 18:09:24 60 /min /min RESP RATE 2019-07-14 18:09:23 16 /min /min TEMP 2019-07-15 18:09:24 98.9 [degF] Procedures This patient has no known procedures. Results This patient has no known results.
--- OUTSIDE RECORDS SUMMARY | 2019-07-31 15:05 | XMS REPORT ---
:1950 Author Organization [facility] Care Team Providers Name Role Phone Unavailable [...] weakness [place] (generalize (generalize RN d) d) detention buttermaker helper Diagnosis Active [place]oli (current) (current) [...] Pain Mgmt Active 2018-07 Linda pain 2- [place] 11:00: [id number] 00 Respiratory dyspnea Respirator Active 2018-07 Linda present y 2 [place] 11:00: [id number] 00 Integument skin Integument Resolve 2018-072019-07-14 Linda integrity d 2- 10:30:00 [place] risk 11:00: [id number] 00 Nutrition nutritional Nutrition Active 2018-07 Linda restriction 09-10 [place] s 11:00: [id number] 00 Nutrition changing Nutrition Active 2018-07 Linda weight/appe 09-10 [place] tite 11:00: [id number] 00 Elimination urinary Eliminatio Active 2018-07 Linda incontinenc n 09-10 [place] e 11:00: [id number] 00 Neuro confusion Neuro/Emot Active 2018-07 Linda present ion 09-10 [place] 11:00: [id number] 00 Neuro anxiety Neuro/Emot Active 2018-07 Linda present ion 09-10 [place] 11:00: [id number] 00 Activity ADL Activity Active 2018-07 Linda assistance 09-10 [place] required 11:00: [id number] 00 Activity self-care Activity Resolve 2018-072019-07-14 Linda deficit d 09-10 10:30:00 [place] 11:00: [id number] 00 Safety cannot be Safety Active 2018-07 Linda left alone 09-10 [place] 11:00: [id number] 00 Safety fall risk Safety Active 2018-07 Linda factor 09-10 [place] present 11:00: [id number] 00 Safety risk for Safety Active 2018-07 Linda hospitaliza 09-10 [place] tion 11:00: [id number] 00 Medication oral med Meds Active 2018-07 Linda assistance 09-10 [place] required 11:00: [id number] 00 Medication knowledge/s Meds Active 2018-07 Linda kill 09-10 [place] deficit: pt 11:00: [id number] 00 Diagnoses knowledge/s Diagnoses Active 2018-07 Linda kill 09-10 [place] deficit: pt 11:00: [id number] 00 Diagnoses knowledge/s Diagnoses Active 2018-07 Linda kill 09-10 [place] deficit: cg 11:00: [id number] 00 Musculoskel transfer Musculoske Active 2018- Linda etal assistance letal 09-10 [place] required 11:00: [id number] 00 Musculoskel requires Musculoske Active 2018-07 Linda etal human letal 09-10 [place] assist to 11:00: [id number] leave home 00 Nutrition nutritional Nutrition Active 2018-07 [place] risk 2-12 [place] 15:25: [id number] 00 Bed transfer PT/OT: Bed Active 2018-07 [place] Mobility/Tr deficit: Mobility/T 2-12 [place] ansfer sit/stand ransfer 15:25: [id number] 00 Bed transfer PT/OT: Bed Active 2018-07 [place] Mobility/Tr deficit: Mobility/T 2-12 Tank ansfer toilet/comm ransfer 15:25: [id number] ode 00 Bed transfer PT/OT: Bed Active 2018-07 [place] Mobility/Tr deficit: Mobility/T 2-12 Tank ansfer shower/tub ransfer 15:25: [id number] 00 Bed transfer PT/OT: Bed Active 2018-07 [place] Mobility/Tr deficit: Mobility/T 2-12 Tank ansfer vehicle ransfer 15:25: [id number] 00 Bed knowledge/s PT/OT: Bed Active 2018-07 [place] Mobility/Tr kill Mobility/T 2-12 Tank ansfer deficit: pt ransfer 15:25: [id number] 00 Bed bed PT/OT: Bed Active 2018-07 [place] Mobility/Tr mobility Mobility/T 2-12 Tank ansfer deficit ransfer 15:25: [id number] 00 Gait/Locomo gait PT/OT: Active 2018-07 [place] tion assistive Gait/Locom 2-12 [place] problems device otion 15:25: [id number] present 00 Gait/Locomo knowledge/s PT/OT: Active 2018-07 [place] tion kill Gait/Locom 2-12 [place] problems deficit: pt otion 15:25: [id number] 00 Gait/Locomo gait PT/OT: Active 2018-07 [place] tion deficit Gait/Locom 2-12 Tank problems otion 15:25: [id number] 00 Allergies, Adverse Reactions, Alerts Allergy Name Allergy Status Severity Reaction(s) Onset Inactive Treating Comments Type Date Date Clinician streptomycin Base Active Unknown Reaction 2018-07 Interface Ingredient Unknown 08-17 Medications Ordered Filled Start Stop Current Ordering Indication Dosage Frequency Signature Comments Components Medication Medication Date Date Medication? Clinician (SIG) Name Name acetaminoph acetaminoph 2018-07 Yes [place] Unknown Unknown en 500 mg en 500 mg 2-12 Matthew GUTIERRES tablet tablet dexAMETHaso dexAMETHaso 2018-07 Yes [place] Unknown Unknown ne 2 mg ne 2 mg 2-12 MD, tablet tablet furosemide furosemide 2018-07 Yes [place] Unknown Unknown 20 mg 20 mg 2-12 MD, tablet tablet morphine ER morphine ER 2018-07 Yes [place] Unknown Unknown 15 mg 15 mg 2-12 MD, tablet,exte tablet,exte nded nded release release Klor-Con Klor-Con 2018-07 Yes [place] Unknown Unknown M20 mEq M20 mEq 2-12 , tablet,exte tablet,exte nded nded release release LORazepam LORazepam 2018-07 Yes [place] Unknown Unknown 0.5 mg 0.5 mg 2-12 MD, tablet tablet omeprazole omeprazole 2018-07 Yes [place] Unknown Unknown 20 mg 20 mg 2-12 , capsule,del capsule,del ayed ayed release release osimertinib osimertinib 2018-07 Yes [place] Unknown Unknown 80 mg 80 mg 2-12 , tablet tablet ondansetron ondansetron 2018-07 Yes [place] Unknown Unknown 4 mg 4 mg 2-12 Matthew GUTIERRES disintegrat disintegrat ing tablet ing tablet oxyCODONE 5 oxyCODONE 5 2018-07 Yes [place] Unknown Unknown mg tablet mg tablet 2-12 [...]
--- OUTSIDE RECORDS SUMMARY | 2019-07-31 15:05 | XMS REPORT ---
:1950 Author Organization [facility] Care Team Providers Name Role Phone Unavailable Unavailable Unavailable Problems Condition Condition Condition Status Onset Resolution Last Treating Comments Name Details Category Date Date Treatment Clinician Date Pain frequent Pain Mgmt Active 2018-07 Linda pain 09-10 [place] 11:00: [id number] Respiratory dyspnea Respirator Active 2018-07 Linda present y 09-10 [place] 11:00: [id number] Integument skin Integument Active 2018-07 Linda integrity 09-10 [place] risk 11:00: [id number] 00 Nutrition nutritional Nutrition Active 2018-07 Linda restriction 09-10 [place] s 11:00: [id number] Nutrition changing Nutrition Active 2018-07 Linda weight/appe 09-10 [place] tite 11:00: [id number] 00 Elimination urinary Eliminatio Active 2018-07 Linda incontinenc n 09-10 [place] e 11:00: [id number] 00 Neuro confusion Neuro/Emot Active 2018-07 Linda present ion 09-10 [place] 11:00: [id number] 00 Neuro anxiety Neuro/Emot Active 2018-07 Linda present ion 09-10 [place] 11:00: [id number] 00 Activity ADL Activity Active 2018-07 Linda assistance 09-10 [place] required 11:00: [id number] Activity self-care Activity Active 2018-07 Linda deficit 09-10 [place] 11:00: [id number] 00 Safety cannot be Safety Active 2018-07 Linda left alone 09-10 [place] 11:00: [id number] 00 Safety fall risk Safety Active 2018-07 Linda factor 09-10 [place] present 11:00: [id number] Safety risk for Safety Active 2018-07 Linda hospitaliza 09-10 [place] tion 11:00: [id number] 00 Medication oral med Meds Active 2018-07 Linda assistance 09-10 [place] required 11:00: [id number] Medication knowledge/s Meds Active 2018-07 Linda harper 09-10 [place] deficit: pt 11:00: [id number] 00 Diagnoses knowledge/s Diagnoses Active 2018-07 Linda harper 09-10 [place] deficit: pt 11:00: [id number] 00 Diagnoses knowledge/s Diagnoses Active 2018-07 Linda harper 09-10 [place] deficit: cg 11:00: [id number] 00 Musculoskel transfer Musculoske Active 2018-07 Linda etal assistance letal 09-10 [place] required 11:00: [id number] 00 Musculoskel requires Musculoske Active 2018-07 Linda etal human letal 09-10 [place] assist to 11:00: [id number] leave home 00 Allergies, Adverse Reactions, Alerts Allergy Name Allergy Status Severity Reaction(s) Onset Inactive Treating Comments Type Date Date Clinician streptomycin Base Active Unknown Reaction 2018-07 Interface Ingredient Unknown 08-17 Medications Ordered Filled Start Stop Current Ordering Indication Dosage Frequency Signature Comments Components Medication Medication Date Date Medication? Clinician (SIG) Name Name acetaminoph acetaminoph 2018-07 Yes [place] Unknown Unknown en 500 mg en 500 mg 2-12 Matthew GUTIERRES tablet tablet dexAMETHaso dexAMETHaso 2018-07 Yes [place] Unknown Unknown ne 2 mg ne 2 mg 2-12 Matthew GUTIERRES tablet tablet furosemide furosemide 2018-07 Yes [place] Unknown Unknown 20 mg 20 mg 2-12 Matthew GUTIERRES tablet tablet morphine ER morphine ER 2018-07 Yes [place] Unknown Unknown 15 mg 15 mg 2-12 Matthew GUTIERRES tablet,exte tablet,exte nded nded release release Klor-Con Klor-Con 2018-07 Yes [place] Unknown Unknown M20 mEq M20 mEq 2-12 Matthew GUTIERRES tablet,exte tablet,exte nded nded release release LORazepam LORazepam 2018-07 Yes [place] Unknown Unknown 0.5 mg 0.5 mg 2-12 Matthew GUTIERRES tablet tablet omeprazole omeprazole 2018-07 Yes [place] Unknown Unknown 20 mg 20 mg 2-12 Matthew GUTIERRES capsule,del capsule,del ayed ayed release release osimertinib osimertinib 2018-07 Yes [place] Unknown Unknown 80 mg 80 mg 2-12 Matthew GUTIERRES tablet tablet ondansetron ondansetron 2018-07 Yes [place] Unknown Unknown 4 mg 4 mg - Matthew GUTIERRES disintegrat disintegrat ing tablet ing tablet oxyCODONE 5 oxyCODONE 5 2018-07 Yes [place] Unknown Unknown mg tablet mg tablet 09-10 [...]
--- OUTSIDE RECORDS SUMMARY | 2019-07-31 15:05 | XMS REPORT ---
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 [place] (current) (current) [place] use of use of RN opiate opiate analgesic analgesic Pain frequent Pain Mgmt Active 2018-07 Linda pain 2- [place] 11:00: [id number] Respiratory dyspnea Respirator Active 2018-07 Linda present y 2 [place] 11:00: [id number] 00 Integument skin Integument Resolve 2018-072019-07-14 Linda integrity d 2- 10:30:00 [place] risk 11:00: [id number] Nutrition nutritional Nutrition Active 2018-07 Linda restriction 09-10 [place] s 11:00: [id number] 00 Nutrition changing Nutrition Active 2018-07 Linda weight/appe 09-10 [place] tite 11:00: [id number] 00 Elimination urinary Eliminatio Active 2018-07 Linda incontinenc n 09-10 [place] e 11:00: [id number] 00 Neuro confusion Neuro/Emot Active 2018-07 Linda present ion 09-10 [place] 11:00: [id number] 00 Neuro anxiety Neuro/Emot Active 2018-07 Linda present ion 09-10 [place] 11:00: [id number] 00 Activity ADL Activity Active 2018-07 Linda assistance 09-10 [place] required 11:00: [id number] Activity self-care Activity Resolve 2018-072019-07-14 Linda deficit d 09-10 10:30:00 [place] 11:00: [id number] 00 Safety cannot be Safety Active 2018-07 Linda left alone 09-10 [place] 11:00: [id number] Safety fall risk Safety Active 2018-07 Linda factor 09-10 [place] present 11:00: [id number] 00 Safety risk for Safety Active 2018-07 Linda hospitaliza 09-10 [place] tion 11:00: [id number] 00 Medication oral med Meds Active 2018-07 Linda assistance 09-10 [place] required 11:00: [id number] 00 Medication knowledge/s Meds Active 2018-07 Linda kill 09-10 [place] deficit: pt 11:00: [id number] Diagnoses knowledge/s Diagnoses Active 2018-07 Linda kill 09-10 [place] deficit: pt 11:00: [id number] 00 Diagnoses knowledge/s Diagnoses Active 2018-07 Linda kill 09-10 [place] deficit: cg 11:00: [id number] 00 Musculoskel transfer Musculoske Active 2018- Linda etal assistance letal 09-10 [place] required 11:00: [id number] 00 Musculoskel requires Musculoske Active 2018-07 Linda etal human letal 09-10 [place] assist to 11:00: [id number] leave home 00 Nutrition nutritional Nutrition Active 2018-07 [place] risk 2-12 [place] 15:25: [id number] 00 Bed transfer PT/OT: Bed Active 2018-07 [place] Mobility/Tr deficit: Mobility/T 2-12 [place] ansfer sit/stand ransfer 15:25: [id number] 00 Bed transfer PT/OT: Bed Active 2018-07 [place] Mobility/Tr deficit: Mobility/T 2-12 [place] ansfer toilet/comm ransfer 15:25: [id number] ode 00 Bed transfer PT/OT: Bed Active 2018-07 [place] Mobility/Tr deficit: Mobility/T 2-12 [place] ansfer shower/tub ransfer 15:25: [id number] 00 Bed transfer PT/OT: Bed Active 2018-07 [place] Mobility/Tr deficit: Mobility/T 2-12 [place] ansfer vehicle ransfer 15:25: [id number] 00 Bed knowledge/s PT/OT: Bed Active 2018-07 [place] Mobility/Tr kill Mobility/T 2-12 [place] ansfer deficit: pt ransfer 15:25: [id number] 00 Bed bed PT/OT: Bed Active 2018-07 [place] Mobility/Tr mobility Mobility/T 2-12 [place] ansfer deficit ransfer 15:25: [id number] 00 Gait/[place] gait PT/OT: Active 2018-07 [place] tion assistive Gait/Locom 2-12 [place] problems device otion 15:25: [id number] 00 Gait/[place] knowledge/s PT/OT: Active 2018-07 [place] tion kill Gait/Locom 2-12 [place] problems deficit: pt otion 15:25: [id number] 00 Gait/[place] gait PT/OT: Active 2018-07 [place] tion deficit Gait/Locom 2-12 [place] problems otion 15:25: [id number] 00 Allergies, Adverse Reactions, Alerts Allergy Name Allergy Status Severity Reaction(s) Onset Inactive Treating Comments Type Date Date Clinician streptomycin Base Active Unknown Reaction 2018-07 Interface Ingredient Unknown 08-17 Medications Ordered Filled Start Stop Current Ordering Indication Dosage Frequency Signature Comments Components Medication Medication Date Date Medication? Clinician (SIG) Name Name acetaminoph acetaminoph 2018-07 Yes [place] Unknown Unknown en 500 mg en 500 mg 2-12 Matthew GUTIERRES tablet tablet dexAMETHaso dexAMETHaso 2018-07 Yes [place] Unknown Unknown ne 2 mg ne 2 mg 2-12 MD, tablet tablet furosemide furosemide 2018-07 Yes [place] Unknown Unknown 20 mg 20 mg 2-12 MD, tablet tablet morphine ER morphine ER 2018-07 Yes [place] Unknown Unknown 15 mg 15 mg 2-12 MD, tablet,exte tablet,exte nded nded release release Klor-Con Klor-Con 2018-07 Yes [place] Unknown Unknown M20 mEq M20 mEq 2-12 , tablet,exte tablet,exte nded nded release release LORazepam LORazepam 2018-07 Yes [place] Unknown Unknown 0.5 mg 0.5 mg 2-12 MD, tablet tablet omeprazole omeprazole 2018-07 Yes [place] Unknown Unknown 20 mg 20 mg 2-12 , capsule,del capsule,del ayed ayed release release osimertinib osimertinib 2018-07 Yes [place] Unknown Unknown 80 mg 80 mg 2-12 , tablet tablet ondansetron ondansetron 2018-07 Yes [place] Unknown Unknown 4 mg 4 mg 2-12 Matthew GUTIERRES disintegrat disintegrat ing tablet ing tablet oxyCODONE 5 oxyCODONE 5 2018-07 Yes [place] Unknown Unknown mg tablet mg tablet 2-12 [...]
--- OUTSIDE RECORDS SUMMARY | 2019-07-31 15:05 | XMS REPORT ---
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 [place] (current) (current) [place] use of use of RN opiate opiate analgesic analgesic Pain frequent Pain Mgmt Active 2018-07 Linda pain 2- [place] 11:00: [id number] Respiratory dyspnea Respirator Active 2018-07 Linda present y -12 [place] 11:00: [id number] 00 Integument skin Integument Active 2018-07 Linda integrity 2-12 [place] risk 11:00: [id number] 00 Nutrition nutritional Nutrition Active 2018-07 Linda restriction 09-10 [place] s 11:00: [id number] 00 Nutrition changing Nutrition Active 2018-07 Linda weight/appe 09-10 [place] tite 11:00: [id number] 00 Elimination urinary Eliminatio Active 2018-07 Linda incontinenc n 09-10 [place] e 11:00: [id number] 00 Neuro confusion Neuro/Emot Active 2018-07 Linda present ion 09-10 [place] 11:00: [id number] 00 Neuro anxiety Neuro/Emot Active 2018-07 Linda present ion 09-10 [place] 11:00: [id number] 00 Activity ADL Activity Active 2018-07 Linda assistance 09-10 [place] required 11:00: [id number] 00 Activity self-care Activity Active 2018-07 Linda deficit 09-10 [place] 11:00: [id number] 00 Safety cannot be Safety Active 2018-07 Linda left alone 09-10 [place] 11:00: [id number] 00 Safety fall risk Safety Active 2018-07 Linda factor 09-10 [place] present 11:00: [id number] Safety risk for Safety Active 2018-07 Linda hospitaliza 09-10 [place] tion 11:00: [id number] 00 Medication oral med Meds Active 2018-07 Linda assistance 09-10 [place] required 11:00: [id number] 00 Medication knowledge/s Meds Active 2018-07 Linda kill 09-10 [place] deficit: pt 11:00: [id number] 00 Diagnoses knowledge/s Diagnoses Active 2018-07 Linda kill 09-10 [place] deficit: pt 11:00: [id number] 00 Diagnoses knowledge/s Diagnoses Active 2018-07 Linda kill 09-10 [place] deficit: cg 11:00: [id number] 00 Musculoskel transfer Musculoske Active 2018-07 Linda etal assistance letal 09-10 [place] required 11:00: [id number] 00 Musculoskel requires Musculoske Active 2018-07 Linda etal human letal 09-10 [place] assist to 11:00: [id number] leave home 00 Nutrition nutritional Nutrition Active 2018-07 [place] risk 09-10 [place] 15:25: [id number] 00 Allergies, Adverse Reactions, Alerts Allergy Name Allergy Status Severity Reaction(s) Onset Inactive Treating Comments Type Date Date Clinician streptomycin Base Active Unknown Reaction 2018-07 Interface Ingredient Unknown 08-17 Medications Ordered Filled Start Stop Current Ordering Indication Dosage Frequency Signature Comments Components Medication Medication Date Date Medication? Clinician (SIG) Name Name acetaminoph acetaminoph 2018-07 Yes [place] Unknown Unknown en 500 mg en 500 mg 2-12 , tablet tablet dexAMETHaso dexAMETHaso 2018-07 Yes [place] Unknown Unknown ne 2 mg ne 2 mg 2-12 , tablet tablet furosemide furosemide 2018-07 Yes [place] Unknown Unknown 20 mg 20 mg 2-12 , tablet tablet morphine ER morphine ER 2018-07 Yes [place] Unknown Unknown 15 mg 15 mg 2-12 , tablet,exte tablet,exte nded nded release release Klor-Con Klor-Con 2018-07 Yes [place] Unknown Unknown M20 mEq M20 mEq 2-12 , tablet,exte tablet,exte nded nded release release LORazepam LORazepam 2018-07 Yes [place] Unknown Unknown 0.5 mg 0.5 mg 2-12 , tablet tablet omeprazole omeprazole 2018-07 Yes [place] Unknown Unknown 20 mg 20 mg 2-12 Matthew GUTIERRES capsule,del capsule,del ayed ayed release release osimertinib osimertinib 2018-07 Yes [place] Unknown Unknown 80 mg 80 mg 2-12 Matthew GUTIERRES tablet tablet ondansetron ondansetron 2018-07 Yes [place] Unknown Unknown 4 mg 4 mg 2-12 Matthew GUTIERRES disintegrat disintegrat ing tablet ing tablet oxyCODONE 5 oxyCODONE 5 2018-07 Yes [place] Unknown Unknown mg tablet mg tablet 2-12 [...]
--- OUTSIDE RECORDS SUMMARY | 2019-07-31 15:05 | XMS REPORT ---
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 [place] (current) (current) [place] use of use of RN opiate opiate analgesic analgesic Pain frequent Pain Mgmt Active 2018-07 Linda pain 2- [place] 11:00: [id number] 00 Respiratory dyspnea Respirator Active 2018-07 Linda present y 2 [place] 11:00: [id number] 00 Integument skin Integument Resolve 2018-072019-07-14 Linda integrity d 2- 10:30:00 [place] risk 11:00: [id number] 00 Nutrition nutritional Nutrition Active 2018-07 Linda restriction 09-10 [place] s 11:00: [id number] 00 Nutrition changing Nutrition Active 2018-07 Linda weight/appe 09-10 [place] tite 11:00: [id number] 00 Elimination urinary Eliminatio Active 2018-07 Linda incontinenc n 09-10 [place] e 11:00: [id number] 00 Neuro confusion Neuro/Emot Active 2018-07 Linda present ion 09-10 [place] 11:00: [id number] 00 Neuro anxiety Neuro/Emot Active 2018-07 Linda present ion 09-10 [place] 11:00: [id number] Activity ADL Activity Active 2018-07 Linda assistance 09-10 [place] required 11:00: [id number] Activity self-care Activity Resolve 2018-072019-07-14 Linda deficit d 09-10 10:30:00 [place] 11:00: [id number] 00 Safety cannot be Safety Active 2018-07 Linda left alone 09-10 [place] 11:00: [id number] 00 Safety fall risk Safety Active 2018-07 Linda factor 09-10 [place] present 11:00: [id number] Safety risk for Safety Active 2018-07 Linda hospitaliza 09-10 [place] tion 11:00: [id number] 00 Medication oral med Meds Active 2018-07 Linda assistance 09-10 [place] required 11:00: [id number] 00 Medication knowledge/s Meds Active 2018-07 Linda kill 09-10 [place] deficit: pt 11:00: [id number] 00 Diagnoses knowledge/s Diagnoses Active 2018-07 Linda kill 09-10 [place] deficit: pt 11:00: [id number] 00 Diagnoses knowledge/s Diagnoses Active 2018-07 Linda kill 09-10 [place] deficit: cg 11:00: [id number] 00 Musculoskel transfer Musculoske Active 2018- Linda etal assistance letal 09-10 [place] required 11:00: [id number] 00 Musculoskel requires Musculoske Active 2018-07 Linda etal human letal 09-10 [place] assist to 11:00: [id number] leave home 00 Nutrition nutritional Nutrition Active 2018-07 [place] risk 09-10 [place] 15:25: [id number] 00 Allergies, Adverse Reactions, Alerts Allergy Name Allergy Status Severity Reaction(s) Onset Inactive Treating Comments Type Date Date Clinician streptomycin Base Active Unknown Reaction 2018-07 Interface Ingredient Unknown 08-17 Medications Ordered Filled Start Stop Current Ordering Indication Dosage Frequency Signature Comments Components Medication Medication Date Date Medication? Clinician (SIG) Name Name acetaminoph acetaminoph 2018-07 Yes [place] Unknown Unknown en 500 mg en 500 mg 2-12 Matthew GTUIERRES tablet tablet dexAMETHaso dexAMETHaso 2018-07 Yes [place] Unknown Unknown ne 2 mg ne 2 mg 2-12 Matthew GUTIERRES tablet tablet furosemide furosemide 2018-07 Yes [place] Unknown Unknown 20 mg 20 mg 2-12 Matthew GUTIERRES tablet tablet morphine ER morphine ER 2018-07 Yes [place] Unknown Unknown 15 mg 15 mg 2-12 Matthew GUTIERRES tablet,exte tablet,exte nded nded release release Klor-Con Klor-Con 2018-07 Yes [place] Unknown Unknown M20 mEq M20 mEq 212 Matthew GUTIERRES tablet,exte tablet,exte nded nded release release LORazepam LORazepam 2018-07 Yes [place] Unknown Unknown 0.5 mg 0.5 mg 2-12 Matthew GUTIERRES tablet tablet omeprazole omeprazole 2018-07 Yes [place] Unknown Unknown 20 mg 20 mg 2-12 Matthew GUTIERRES capsule,del capsule,del ayed ayed release release osimertinib osimertinib 2018-07 Yes [place] Unknown Unknown 80 mg 80 mg 2-12 Matthew GUTIERRES tablet tablet ondansetron ondansetron 2018-07 Yes [place] Unknown Unknown 4 mg 4 mg 2-12 Matthew GUTIERRES disintegrat disintegrat ing tablet ing tablet oxyCODONE 5 oxyCODONE 5 2018-07 Yes [place] Unknown Unknown mg tablet mg tablet 2-12 [...]
--- OUTSIDE RECORDS SUMMARY | 2019-07-31 15:05 | XMS REPORT ---
:1950 Author Organization [facility] Care Team Providers Name Role Phone Unavailable Unavailable Unavailable Problems This patient has no known problems. Allergies, Adverse Reactions, Alerts Allergy Name Allergy Status Severity Reaction(s) Onset Inactive Treating Comments Type Date Date Clinician streptomycin Base Active Unknown Reaction 2018-07 Interface Ingredient Unknown -19 Medications Ordered Filled Start Stop Current Ordering Indication Dosage Frequency Signature Comments Components Medication Medication Date Date Medication? Clinician (SIG) Name Name acetaminoph acetaminoph 2019- Yes Unknown Unknown Unknown en 500 mg en 500 mg 04-02 11-19 tablet tablet Procedures This patient has no known procedures. Results This patient has no known results.
[2019-07-31 15:46] LABS: INR 0.99 (0.82-1.09)
[2019-07-31 16:28] LABS: Albumin 3.6 g/dL (3.2-5.2); Albumin/Globulin Ratio 1.6 (1-3); BUN/Creatinine Ratio 37.2 (8-20); Calcium 8.6 mg/dL (8.6-10.3); EGFR African American 176.2 (>60); EGFR Non-African American 145.6 (>60); Globulin 2.2 g/dL (2-4); Potassium 3.5 mmol/L (3.5-5.0); Total Bilirubin 0.5 mg/dL (0.2-1.0); Total Protein 5.8 g/dL (6.4-8.9); Troponin I 0.01 ng/mL (<0.03)
[2019-07-31 17:12] LABS: ABS Basophils 0.1 10^3/ul (0-0.2); ABS Lymphocytes 0.5 10^3/ul (1.0-4.8); ABS Monocytes 0.2 10^3/ul (0-0.8); ABS Neutrophils 11.2 10^3/ul (1.5-7.7); Eosinophil % 0.1 %; Hematocrit 36 % (35-47); Hemoglobin 12.4 g/dL (12.0-16.0); Lymphocyte % 4.6 %; Mean Corpuscular HGB Conc 34 g/dL (31-36); Mean Corpuscular Hemoglobin 32 pg (27-31); Mean Corpuscular Volume 92 fL (80-97); Mean Platelet Volume 7.3 fL (7.4-10.4); Platelet Count 261 10^3/uL (150-450); Red Blood Count 3.93 10^6 /uL (3.70-4.87); Red Cell Distribution Width 15 % (10-15)
[2019-07-31] MEDS ORDERED: Iohexol 350* (CONTRAST) 500 ML MDV IV ONE (17:56)
--- NOTE | 2019-07-31 18:00 | ED ---
HPI Chest Pain - HPI Summary HPI Summary: 69 year old female presents with chest pain since last night. She states that is sharp pain on left side of her chest. States she's been having all over aches and pains. States she's been a little nauseous. she admits to shortness breath. She states pain is worse when she takes deep breath. she has never had this pain before. Does have family history of cardiac disease. She has no history of DM or HTN. She has no history of cardiac disease. she took her normal prescribed morphine without any relief. pain does not radiate to the back. She states though she has had pain in her legs occasionally. no recent swelling to her legs or pain in her calf muscles. She is currently being treated for lung cancer. She a patient of Dr Rosenthal. - History of Current Complaint Chief Complaint: EDChestPainROMI Time Seen by Provider: 07/31/19 17:20 Pain Intensity: 2 - Additional Pertinent History Primary Care Physician: [id number] - Allergy/Home Medications Allergies/Adverse Reactions: Allergies Allergy/AdvReac Type Severity Reaction Status Date / Time streptomycin Allergy Rash Verified 06/16/19 09:21 Home Medications: Home Medications Fluticasone NASAL SPRAY 50MCG* [Flonase NASAL SPRAY 50MCG*] 2 spray BOTH NARES DAILY 07/31/19 [History Confirmed 07/31/19] LORazepam TAB(*) [Ativan 1 MG TAB (*)] 1 - 2 mg PO BEDTIME MDD 2 mg 07/31/19 [ History Confirmed 07/31/19] RX: Acetaminophen TAB* [Tylenol TAB*] 650 mg PO Q6HR PRN 07/31/19 [History Confirmed 07/31/19] RX: Morphine TAB Extended Rel(*) [Ms Contin(*)] 15 mg PO BID MDD 30 mg (2 tabs) 07/31/19 [History Confirmed 07/31/19] PMH/Surg Hx/FS Hx/Imm Hx Endocrine/Hematology History: Denies: Hx Diabetes Cardiovascular History: Reports: Hx Hypercholesterolemia Denies: Hx Hypertension, Hx Pacemaker/ICD GI History: Reports: Other GI Disorders - GALLSTONES History: Denies: Hx Dialysis, Hx Renal Disease Musculoskeletal History: 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 Comment Only: Other Musculoskeletal History - bilateral hand and leg numbness and weakness x1year Sensory History: Reports: Hx Cataracts, Hx Contacts or Glasses Denies: Hx Hearing Aid Opthamlomology History: Reports: Hx Cataracts, Hx Contacts or Glasses Neurological History: Reports: Hx Headaches Psychiatric History: Denies: Hx Panic Disorder - Cancer History Cancer Type, Location and Year: lung/brain ca Hx Radiation Therapy: Yes - Surgical History Surgery Procedure, Year, and Place: cataracts, gamma knife Hx Anesthesia Reactions: No Infectious Disease History: No Infectious Disease History: Denies: Traveled Outside the [place] in Last 30 Days - Family History Known Family History: Positive: Cardiac Disease, Other - migraines, brain cancer - Social History Alcohol Use: None Hx Substance Use: No Substance Use Type: Reports: None Substance Use Comment - Amount & Last Used: prescribed Hx Tobacco Use: Yes Smoking Status (MU): Former Smoker Review of Systems Negative: Fever Positive: Chest Pain Positive: Shortness Of Breath. Negative: Cough All Other Systems Reviewed And Are Negative: Yes Physical Exam Triage Information Reviewed: Yes Vital Signs On Initial Exam: Initial Vitals Temp Pulse Resp BP Pulse Ox 98.1 F 79 14 103/55 97 07/31/19 15:01 07/31/19 15:01 07/31/19 15:01 07/31/19 15:01 07/31/19 15:01 Vital Signs Reviewed: Yes Appearance: Positive: Well-Appearing Skin: Positive: Warm, Dry Head/Face: Positive: Normal Head/Face Inspection Eyes: Positive: Normal, Conjunctiva Clear ENT: Positive: Pharynx normal Respiratory/Lung Sounds: Positive: Clear to Auscultation, Breath Sounds Present , Other - reproducible chest pain Cardiovascular: Positive: Normal, RRR Abdomen Description: Positive: Nontender, Soft Bowel Sounds: Positive: Present Musculoskeletal: Positive: Normal Neurological: Positive: Normal Psychiatric: Positive: Normal Procedures - Sedation Patient Received Moderate/Deep Sedation with Procedure: No Diagnostics - Vital Signs Vital Signs Temp Pulse Resp BP Pulse Ox 07/31/19 16:58 98.2 F 74 16 119/76 97 07/31/19 15:01 98.1 F 79 14 103/55 97 - Laboratory Lab Results: Lab Results 07/31/19 07/31/19 07/31/19 Range/Units 15:26 15:26 17:05 WBC 12.0 H (3.5-10.8) 10^3/uL RBC 3.93 (3.70-4.87) 10^6 /uL Hgb 12.4 (12.0-16.0) g/dL Hct 36 (35-47) % MCV 92 (80-97) fL MCH 32 H (27-31) pg MCHC 34 (31-36) g/dL RDW 15 (10-15) % Plt Count 261 (150-450) 10^3/uL MPV 7.3 L (7.4-10.4) fL Neut % (Auto) 92.9 % Lymph % (Auto) 4.6 % Wheeler % (Auto) 1.9 % Eos % (Auto) 0.1 % Baso % (Auto) 0.5 % Absolute Neuts (auto) 11.2 H (1.5-7.7) 10^3/ul Absolute Lymphs (auto) 0.5 L (1.0-4.8) 10^3/ul Absolute Monos (auto) 0.2 (0-0.8) 10^3/ul Absolute Eos (auto) 0.0 (0-0.6) 10^3/ul Absolute Basos (auto) 0.1 (0-0.2) 10^3/ul Absolute Nucleated RBC 0.0 10^3/ul Nucleated RBC % 0.0 INR (Anticoag Therapy) 0.99 (0.82-1.09) D-Dimer, Quantitative 444 H (Less Than 230) ng/mL Sodium 135 (135-145) mmol/L Potassium 3.5 (3.5-5.0) mmol/L Chloride 102 (101-111) mmol/L Carbon Dioxide 26 (22-32) mmol/L Anion Gap 7 (2-11) mmol/L BUN 16 (6-24) mg/dL Creatinine 0.43 L (0.51-0.95) mg/dL Est GFR ( Amer) 176.2 (>60) Est GFR (Non-Af Amer) 145.6 (>60) BUN/Creatinine Ratio 37.2 H (8-20) Glucose 120 H (70-100) mg/dL Calcium 8.6 (8.6-10.3) mg/dL Total Bilirubin 0.50 (0.2-1.0) mg/dL AST 16 (13-39) U/L ALT 22 (7-52) U/L Alkaline Phosphatase 76 (34-104) U/L Troponin I 0.01 (<0.03) ng/mL Total Protein 5.8 L (6.4-8.9) g/dL Albumin 3.6 (3.2-5.2) g/dL Globulin 2.2 (2-4) g/dL Albumin/Globulin Ratio 1.6 (1-3) Result Diagrams: 07/31/19 17:05 07/31/19 15:26 Lab Statement: Any lab studies that have been ordered have been reviewed, and results considered in the medical decision making process. - Radiology chest Radiology Interpretation Completed By: Radiologist Summary of Radiographic Findings: IMPRESSION: 1. RIGHT UPPER LOBE MASS SLIGHTLY INCREASED IN SIZE. 2. NUMEROUS SMALL PULMONARY NODULAR DENSITIES DEMONSTRATING SLIGHT PROGRESSION. - CT cta CT Interpretation Completed By: Radiologist Summary of CT Findings: IMPRESSION: 1. There is decreased size of spiculated mass in the right upper lobe currently measuring 2.5 x 3.3 cm and previously measuring 2.8 x 4.6 cm suspicious for malignancy until proven otherwise. There also appears to be decreased number and size of numerous bilateral pulmonary nodules suspicious for pulmonary metastases. 2. No visible acute pulmonary embolism. 3. There is increased number and size of sclerotic lesions of the bones consistent with worsening of sclerotic osseous metastases. - EKG No standard instances Cardiac Rate: NL EKG Rhythm: Sinus Rhythm EKG Comparison: No Significant Change Summary of EKG Findings: sinus rhythm Re-Evaluation - Re-Evaluation First Eval Re-Evaluation Time: 18:10 Comment: discussed troponin results Second Eval Re-Evaluation Time: 20:00 Comment: currently a sleep no chest pain Chest Pain Course/Dx - Course Course Of Treatment: 69 year old female presents with chest pain since last night. She states that is sharp pain on left side of her chest. States she's been having all over aches and pains. States she's been a little nauseous. she admits to shortness breath. She states pain is worse when she takes deep breath. she has never had this pain before. Does have family history of cardiac disease. She has no history of DM or HTN. She has no history of cardiac disease. she took her normal prescribed morphine without any relief. pain does not radiate to the back. She states though she has had pain in her legs occasionally. no recent swelling to her legs or pain in her calf muscles. She is currently being treated for lung cancer. She a patient of Dr Rosenthal. on exam has reproducible chest pain. lungs CTA. ekg sinus rhythm. troponin zero. d-dimer elevated. CTA chest shows no PE. heart score 3 so low risk. believe this is pain likely from CA or chest wall. will have follow up with oncology. patient understand and agrees with plan. - Chest Pain Differential Diagnosis/HQI/PQRI: Chest Wall, Lower Respiratory Infection, Pulmonary Embolism - Diagnoses Provider Diagnoses: Chest wall pain Discharge ED - Sign-Out/Discharge Documenting (check all that apply): Patient Departure - Discharge Plan Condition: Good Disposition: HOME Patient Education Materials: Chest Pain (ED) Referrals: Cherri Rosenthal MD [Medical Doctor] - Matthew Ibarra MD [Primary Care Provider] - Tash Grimaldo MD [Medical Doctor] - Additional Instructions: follow up with oncology within 3 days a referral was given to cardiology take normal pain mediation Return to ED if develop any new or worsening symptoms - Billing Disposition and Condition Condition: GOOD Disposition: Home
[2019-07-31] MEDS ORDERED: Morphine 4 MG/ML VIAL (1 ml) 4 MG/ML VIAL IV ONE (19:27)
[2019-07-31] MEDS ORDERED: oxyCODONE TAB* 5 MG TAB PO ONE (19:37)
[2019-07-31 19:48] VITALS: BP 101/60
== END 2019-07-31 20:09 | disposition home or self-care (01) ==
LOC: ED 14:46
DX: C34.90 Malignant neoplasm of unspecified part of unspecified bronchus or lung (principal); C79.31 Secondary malignant neoplasm of brain; R07.89 Other chest pain; R06.02 Shortness of breath; R11.0 Nausea; Z88.1 Allergy status to other antibiotic agents; Z87.891 Personal history of nicotine dependence
CPT/HCPCS: 36415; 71045; 71275; 80053; 83880; 84484; 85025; 85379; 85610; 93005; 99283; A9270-GY; Q9967

== ENCOUNTER 2019-11-09 00:45 | Emergency (ER) | payer MEDICARE, MEDICAID ==
[2019-11-09] MEDS ORDERED: NS 0.9% 1000 ML** 1,000 ML IV ONE (01:42)
--- NOTE | 2019-11-09 01:52 | ED ---
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 She states she was diagnosed with brain cancer 4 months ago after having dizzy spells and becoming increasingly weak especially with ambulation. Yesterday, she felt dizzy and had fallen, but she doesnt remember how she fell. She was at home with her family when this occurred. She is only experiencing a headache rated 2/10 in severity, which she experiences chronically secondary to the cancer. She denies any fevers , cough, chest pain, or shortness of breath. She follows with Dr. Rosenthal for oncology services who recommended she be evaluated this morning. No blood thinners. Past medical history also includes hypercholesterolemia, arthritis. Former smoker. No alcohol or substance use. Medications reviewed. Allergies noted. - History Of Current Complaint Chief Complaint: EDFall Stated Complaint: FALL PER EMS Time Seen by Provider: 11/09/19 01:41 Hx Obtained From: Patient Onset/Duration: Resolved Severity Initially: Moderate Severity Currently: None Character: Weak, Dizzy Aggravating Factor(s): Nothing Alleviating Factor(s): Nothing Associated Signs And Symptoms: Positive: Other: - fall; Negative: cough. Negative: Chest Pain, SOB, Fever - Allergies/Home Medications Allergies/Adverse Reactions: Allergies Allergy/AdvReac Type Severity Reaction Status Date / Time streptomycin Allergy Rash Verified 11/09/19 03:33 Home Medications: Home Medications Omeprazole CAP (NF) [Prilosec CAP* 20 MG] 20 mg PO DAILY 05/28/19 [History Confirmed 11/09/19] oxyCODONE TAB* [Roxycodone TAB 5 mg*] 5 mg PO Q4H PRN MDD 30 mg 06/12/19 [ History Confirmed 11/09/19] Acetaminophen TAB* [Tylenol TAB*] 650 mg PO Q6HR PRN 07/31/19 [History Confirmed 11/09/19] Fluticasone NASAL SPRAY 50MCG* [Flonase NASAL SPRAY 50MCG*] 2 spray BOTH NARES DAILY PRN 07/31/19 [History Confirmed 11/09/19] Ca/D3/Mag Ox/Zinc/[employer]ufacturing [employer]/Miah/Bor [[facility] Calcium 600-D3 Plus Tablet] 2 tab PO DAILY 11/09/19 [History Confirmed 11/09/19] Cholecalciferol TAB* [Vitamin D TAB*] 1 tab PO DAILY 11/09/19 [History Confirmed 11/09/19] LORazepam [Lorazepam] 2 - 3 tab PO BEDTIME PRN 11/09/19 [History Confirmed 11/08] Morphine Sulfate [Morphine Sulfate ER] 30 mg PO BEDTIME 11/09/19 [History Confirmed 11/09/19] Osimertinib Mesylate [Tagrisso] 40 mg PO DAILY 11/09/19 [History Confirmed 11/08] PMH/Surg Hx/FS Hx/Imm Hx Endocrine/Hematology History: Denies: Hx Diabetes Cardiovascular History: Reports: Hx Hypercholesterolemia Denies: Hx Hypertension, Hx Pacemaker/ICD GI History: Reports: Other GI Disorders - GALLSTONES History: Denies: Hx Dialysis, Hx Renal Disease Musculoskeletal History: 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 Comment Only: Other Musculoskeletal History - bilateral hand and leg numbness and weakness x1year Sensory History: Reports: Hx Cataracts, Hx Contacts or Glasses Denies: Hx Hearing Aid Opthamlomology History: Reports: Hx Cataracts, Hx Contacts or Glasses Neurological History: Reports: Hx Headaches Psychiatric History: Denies: Hx Panic Disorder - Cancer History Cancer Type, Location and Year: lung/brain ca Hx Radiation Therapy: Yes - Surgical History Surgical History: Yes Surgery Procedure, Year, and Place: cataracts, gamma knife Hx Anesthesia Reactions: No Infectious Disease History: No Infectious Disease History: Denies: Traveled Outside the [place] in Last 30 Days - Family History Known Family History: Positive: Cardiac Disease, Other - migraines, brain cancer - Social History Alcohol Use: None Hx Substance Use: No Substance Use Type: Reports: None Substance Use Comment - Amount & Last Used: prescribed Hx Tobacco Use: Yes Smoking Status (MU): Former Smoker - Additional Comments History Additional Comments: brain cancer with infusions, metastatic lung cancer, hypercholesterolemia, arthritis, former smoker Review of Systems - ROS Summary Review of Systems Summary: Home Medications Medication Instructions Recorded Confirmed Type Omeprazole CAP (NF) [Prilosec CAP* 20 mg PO DAILY 05/28/19 07/31/19 History 20 MG] Ondansetron TAB* [Zofran 4 MG Tab*] 4 mg PO Q8HR PRN 06/12/19 07/31/19 History Osimertinib Mesylate [Tagrisso] 80 mg PO DAILY 06/12/19 07/31/19 History oxyCODONE TAB* [Roxycodone TAB 5 5 mg PO Q4H PRN MDD 30 mg 06/12/19 07/31/19 History mg*] Acetaminophen TAB* [Tylenol TAB*] 650 mg PO Q6HR PRN 07/31/19 07/31/19 History Fluticasone NASAL SPRAY 50MCG* 2 spray BOTH NARES DAILY 07/31/19 07/31/19 History [Flonase NASAL SPRAY 50MCG*] LORazepam TAB(*) [Ativan 1 MG TAB 1 - 2 mg PO BEDTIME MDD 2 mg 07/31/19 History (*)] Morphine TAB Extended Rel(*) [Ms 15 mg PO BID MDD 30 mg (2 tabs) 07/31/19 History Contin(*)] Negative: Fever Negative: Chest Pain Negative: Shortness Of Breath, Cough Neurological/Mental Status: Other - dizziness Positive: Headache - chronic All Other Systems Reviewed And Are Negative: Yes Physical Exam - Summary Physical Exam Summary: General: Well-developed, Well-nourished elderly female. No acute distress. HEENT: Normocephalic, Atraumatic. Eyes: Conjuctiva normal, PERRL. Oropharynx: Clear, mucous membranes moist, (-) exudates. Neck: Soft, FROM, (-) lymphadenopathy, (-) thyromegaly, (-) JVD. Cardiovascular: Normal sinus rhythm, (-) murmur. Lungs: Clear to auscultation bilaterally (-) wheezes, (-) rales, (-) rhonchi. Abdomen: Soft, non-tender, non-distended, (-) organomegaly, normal bowel sounds. Back: (-) CVA tenderness Extremities: No edema. Skin: Warm, dry, (-) rash. Neuro: Alert and oriented x3, moves all extremities equally. No ataxia. No gait disturbance. No sensory deficit. Normal strength, normal sensation. Psychiatric: Mood normal, affect normal. Triage Information Reviewed: Yes Vital Signs On Initial Exam: Initial Vitals Temp Pulse Resp BP Pulse Ox 99.1 F 78 18 161/92 98 11/09/19 00:49 11/09/19 00:49 11/09/19 00:49 11/09/19 00:49 11/09/19 00:49 Vital Signs Reviewed: Yes - [place] Coma Scale Best Eye Response: 4 - Spontaneous Best Motor Response: 6 - Obeys Commands Best Verbal Response: 5 - Oriented Coma Scale Total: 15 Procedures - Sedation Patient Received Moderate/Deep Sedation with Procedure: No Diagnostics - Vital Signs Vital Signs Temp Pulse Resp BP Pulse Ox 11/09/19 00:49 99.1 F 78 18 161/92 98 - Laboratory Result Diagrams: 11/09/19 02:14 11/09/19 02:14 Lab Statement: Any lab studies that have been ordered have been reviewed, and results considered in the medical decision making process. - CT Brain CT CT Interpretation Completed By: Radiologist Summary of CT Findings: Impression: No acute intracranial pathology is appreciated. No acute hemorrhage. In general, similar findings were noted in 2018. This report was reviewed by Dr. Bedoya. - EKG 0227 Cardiac Rate: NL - 67 BPM EKG Rhythm: Sinus Rhythm Summary of EKG Findings: EKG at 0227 reveals normal sinus rhythm with rate of 67 BPM, no acute changes, no ischemic changes. This EKG was reviewed and interpreted by Dr. Bedoya. Re-Evaluation - Re-Evaluation First Eval Re-Evaluation Time: 04:20 Comment: I discussed all results. Discussed all symptoms that warrant return to the ED. Dizzy Course/Dx - Course Course Of Treatment: 69-year-old female presents from home by ambulance after fall. Patient fell about 1:00 this afternoon. She refused to come to the hospital with the family finally convinced her. He doesn't remember exactly how she fell. He has known lung cancer with metastases to the brain that was diagnosed 4 months ago. She is getting daily infusions for this. She admits that she is always dizzy. Dizzy today as well. No fevers chills or cough. No chest pain shortness of breath. She has a little tenderness in her left parietal region after falling no other injuries. Patient is alert and oriented 3. No obvious findings on physical. IV fluids. Workup essentially negative. Patient discharged to home. Advised plenty of fluids and rest. Follow-up with PCP. Follow-up sooner for any worsening symptoms. - Diagnoses Provider Diagnoses: Fall, Dizziness, Metastatic lung cancer (metastasis from lung to other site) Discharge ED - Sign-Out/Discharge Documenting (check all that apply): Patient Departure - Patient will be discharged home. - Discharge Plan Condition: Stable Disposition: HOME Patient Education Materials: Lung Cancer (DC), Fall Prevention for Older Adults (ED), Dizziness (ED) Referrals: Cherri Rosenthal MD [Medical Doctor] - 3 Days Matthew Ibarra MD [Primary Care Provider] - 3 Days Additional Instructions: Follow up with your primary care provider and oncologist in 2-3 days. Return to the emergency department for any new or worsening symptoms. - Billing Disposition and Condition Condition: STABLE Disposition: Home - Attestation Statements Document Initiated by Scribe: Yes Documenting Scribe: Mee Casey Provider For Whom [place] is Documenting (Include Credential): Keke Bedoya MD Scribe Attestation: Mee Obrien, scribed for Keke Bedoya MD on 11/09/19 at 0602. Scribe Documentation Reviewed: Yes Provider Attestation: The documentation as recorded by the Mee ga accurately reflects the service I personally performed and the decisions made by me, Keke Bedoya MD Status of Scribrodrick Document: Viewed
[2019-11-09 02:27] LABS: ABS Lymphocytes 1.1 10^3/ul (1.0-4.8); ABS Monocytes 0.8 10^3/ul (0-0.8); ABS Neutrophils 6.3 10^3/ul (1.5-7.7); Eosinophil % 0.2 %; Hematocrit 41 % (35-47); Lymphocyte % 13.6 %; Mean Corpuscular HGB Conc 34 g/dL (31-36); Mean Corpuscular Hemoglobin 30 pg (27-31); Mean Corpuscular Volume 90 fL (80-97); Mean Platelet Volume 7.7 fL (7.4-10.4); Platelet Count 233 10^3/uL (150-450); Red Blood Count 4.59 10^6 /uL (3.70-4.87); Red Cell Distribution Width 16 % (10-15); White Blood Count 8.3 10^3/uL (3.5-10.8)
[2019-11-09 02:31] LABS: INR 0.9 (0.82-1.09)
[2019-11-09 02:46] LABS: Albumin 3.6 g/dL (3.2-5.2); Albumin/Globulin Ratio 1.4 (1-3); BUN/Creatinine Ratio 30.1 (8-20); Calcium 8.8 mg/dL (8.6-10.3); EGFR African American 95.6 (>60); Globulin 2.5 g/dL (2-4); Magnesium 2.1 mg/dL (1.9-2.7); Potassium 3.8 mmol/L (3.5-5.0); Total Bilirubin 0.4 mg/dL (0.2-1.0); Total Protein 6.1 g/dL (6.4-8.9); Troponin I 0.01 ng/mL (<0.03)
[2019-11-09 03:21] LABS: TSH (Thyroid Stimulating Horm) 0.47 mcIU/mL (0.34-5.60)
[2019-11-09 03:22] LABS: Urine Appearance Clear; Urine Bilirubin Negative (Negative); Urine Blood Negative (Negative); Urine Color Yellow; Urine Glucose Negative (Negative); Urine Ketones Negative (Negative); Urine Nitrite Negative (Negative); Urine Protein Negative (Negative); Urine Urobilinogen Negative (Negative)
[2019-11-09 04:35] VITALS: BP 121/70
--- OUTSIDE RECORDS SUMMARY | 2019-11-09 04:43 | XMS REPORT ---
:1950 Author Organization [facility] Care Team Providers Name Role Phone Unavailable Unavailable Unavailable Problems Condition Condition Condition Status Onset Resolution Last Treating Comments Name Details Category Date Date Treatment Clinician Date Wedge Wedge Diagnosis Active 2018-07 Reese compression compression 09-10 Tank fracture of fracture of [id number] unspecified unspecified lumbar lumbar vertebra, vertebra, subsequent subsequent encounter encounter for for fracture fracture with with routine routine healing healing Malignant Malignant Diagnosis Active 2018-07 Reese 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 Tank lower lobe, lower lobe, [id number] left left bronchus or bronchus or lung lung Disorder of Disorder of Diagnosis Active 2018-07 Reese brain, brain, 08-17 [place] unspecified unspecified [id number] Hyperlipide Hyperlipide Diagnosis Active 2018-07 Reese rhett, rhett, 08-17 [place] unspecified unspecified [id number] 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, terolemia, [id number] unspecified unspecified Cervicalgia Cervicalgia Diagnosis Active 2018-07 Reese 08-17 Tank [id number] Muscle Muscle Diagnosis Active Reese weakness weakness Tank (generalize (generalize [id number] d) 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) Tank use of use of [id number] systemic systemic steroids steroids 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 Reese (current) (current) [place] use of use of [id number] anticoagula anticoagula nts nts retirement retirement Diagnosis Active Reese (current) (current) [place] use of use of [id number] opiate opiate analgesic analgesic Pain frequent Pain Mgmt Resolve 2018-072019-08-13 Linda pain d 2-12 14:25:00 [place] 11:00: [id number] 00 Respiratory dyspnea Respirator Resolve 2018-072019-08-07 Linda present y d 2-12 14:50:00 [place] 11:00: [id number] 00 Integument skin Integument Resolve 2018-072019-07-14 Linda integrity d 2-12 10:30:00 [place] risk 11:00: [id number] 00 Nutrition nutritional Nutrition Resolve 2018-072019-08-20 Linda restriction d 2-12 13:00:00 [place] s 11:00: [id number] 00 Nutrition changing Nutrition Resolve 2018-072019-08-13 Linda weight/appe d 2-12 14:25:00 [place] tite 11:00: [id number] 00 Elimination urinary Eliminatio Resolve 2018-072019-07-28 Linda incontinenc n d 2-12 13:56:00 [place] e 11:00: [id number] 00 Neuro confusion Neuro/Emot Resolve 2018-072019-08-20 Linda present ion d 2-12 13:00:00 [place] 11:00: [id number] 00 Neuro anxiety Neuro/Emot Resolve 2018-072019-08-20 Linda present ion d 2-12 13:00:00 [place] 11:00: [id number] 00 Activity ADL Activity Resolve 2018-072019-07-17 Linda assistance d 2-12 14:40:00 [place] required 11:00: [id number] 00 Activity self-care Activity Resolve 2018-072019-07-14 Linda deficit d 2-12 10:30:00 [place] 11:00: [id number] 00 Safety cannot be Safety Resolve 2018-072019-07-17 Linda left alone d 2-12 14:40:00 [place] 11:00: [id number] 00 Safety fall risk Safety Resolve 2018-072019-07-17 Linda factor d 2-12 14:40:00 [place] present 11:00: [id number] 00 Safety risk for Safety Resolve 2018-072019-07-17 Linda hospitaliza d 2-12 14:40:00 [place] tion 11:00: [id number] 00 Medication oral med Meds Resolve 2018-072019-07-28 Linda assistance d 2-12 13:56:00 [place] required 11:00: [id number] 00 Medication knowledge/s Meds Resolve 2018-072019-07-28 Linda kill d 2-12 13:56:00 [place] deficit: pt 11:00: [id number] 00 Diagnoses knowledge/s Diagnoses Resolve 2018-072019-09-01 Linda kill d 2-12 13:45:00 [place] deficit: pt 11:00: [id number] 00 Diagnoses knowledge/s Diagnoses Resolve 2018-072019-09-01 Linda kill d 2-12 13:45:00 [place] deficit: cg 11:00: [id number] 00 Musculoskel transfer Musculoske Resolve 2018-072019-08-07 Linda etal assistance letal d 2-12 14:50:00 [place] required 11:00: [id number] 00 Musculoskel requires Musculoske Resolve 2018-072019-08-07 Linda etal human letal d 2-12 14:50:00 [place] assist to 11:00: [id number] leave home 00 Nutrition nutritional Nutrition Resolve 2018-072019-08-20 Reese risk d 2-12 13:00:00 [place] 15:25: [id number] 00 Bed transfer PT/OT: Bed Resolve 2018-072019-09-01 Reese Mobility/Tr deficit: Mobility/T d 2-12 13:45:00 [place]ado sit/stand ransfer 15:25: [id number] 00 Bed transfer PT/OT: Bed Resolve 2018-072019-09-01 Reese Mobility/Tr deficit: Mobility/T d 2-12 13:45:00 [place] prado toilet/comm ransfer 15:25: [id number] ode 00 Bed transfer PT/OT: Bed Resolve 2018-072019-09-01 Reese Mobility/Tr deficit: Mobility/T d 2-12 13:45:00 [place] prado shower/tub ransfer 15:25: [id number] 00 Bed transfer PT/OT: Bed Resolve 2018-072019-09-01 Reese Mobility/Tr deficit: Mobility/T d 2-12 13:45:00 [place] prado vehicle ransfer 15:25: [id number] 00 Bed knowledge/s PT/OT: Bed Resolve 2018-072019-09-01 Reese Mobility/Tr kill Mobility/T d 2-12 13:45:00 [place] deficit: pt ransfer 15:25: [id number] 00 Bed bed PT/OT: Bed Resolve 2018-072019-09-01 Reese Mobility/Tr mobility Mobility/T d 2-12 13:45:00 Tank ansfer deficit ransfer 15:25: [id number] 00 Gait/Locomo gait PT/OT: Resolve 2018-072019-09-01 Reese tion assistive Gait/Locom d 2-12 13:45:00 [place] problems device otion 15:25: [id number] present 00 Gait/Locomo knowledge/s PT/OT: Resolve 2018-072019-09-01 Reese tion kill Gait/Locom d 2-12 13:45:00 [place] problems deficit: pt otion 15:25: [id number] 00 Gait/Locomo gait PT/OT: Resolve 2018-072019-09-01 Reese tion deficit Gait/Locom d 2-12 13:45:00 [place] problems otion 15:25: [id number] 00 Safety risk for Safety Resolve 2018-072019-08-13 Ashley hospitaliza d 2-23 14:25:00 [place] tion 13:00: [id number] 00 24 Hr Diet nutrition NT: 24Hr Resolve 2018-072019-08-11 Ashley intake Diet d 2-23 15:55:00 [place] deficit 13:00: [id number] 00 24 Hr Diet knowledge/s NT: 24Hr Resolve 2018-072019-07-21 Ashley kill Diet d 2-23 13:00:00 [place] deficit - 13:00: [id number] pt 00 24 Hr Diet knowledge/s NT: 24Hr Resolve 2018-072019-07-21 Ashley kill Diet d 2-23 13:00:00 [place] deficit - 13:00: [id number] cg 00 Nutritional eating NT: Resolve 2018-072019-07-21 Ashley Barrier difficultie Barriers d 2-23 13:00:00 [place] s present 13:00: [id number] 00 Neuro impaired Neuro/Emot Resolve 2018-072019-08-20 [place]oli decision-ma ion d 2- 13:00:00 [place] del[place] 14:15: RN 00 Safety cannot be Safety Resolve 2018-072019-08-13 Loli left alone d 2- 14:25:00 [place] 14:15: RN 00 Cardio edema Cardiovasc Resolve 2018-072019-08-13 Loli ular d 2 14:25:00 [place] 13:56: RN 00 24 Hr Diet nutrition NT: 24Hr Unknown 2018-07 Loli intake Diet [place] deficit 13:56: RN 00 Medication knowledge/s Meds Resolve 2019-08-04 Loli kill d 07-31 14:06:00 [place] deficit: pt 13:07: RN 00 Musculoskel requires Musculoske Resolve 2019-08-28 Loli etal human letal d - 13:10:00 [place] assist to 14:25: RN leave home 00 Safety risk for Safety Resolve 2019-08-20 Reese hospitaliza d - 13:00:00 [place] tion 16:00: [id number] 00 Safety can be left Safety Resolve 2019-08-20 Loli alone for d 08-20 13:00:00 [place] only short 13:00: RN periods 00 Safety risk for Safety Resolve 2019-08-28 Reese hospitaliza d 08-25 13:10:00 [place] tion 14:45: [id number] 00 Neuro impaired Neuro/Emot Resolve 2019-09-01 Loli decision-ma ion d 08-28 13:45:00 [place] danny 13:10: RN 00 Safety can be left Safety Resolve 2019-09-01 Loli alone for d 08-28 13:45:00 [place] only short 13:10: RN periods 00 Safety risk for Safety Resolve 2019-09-01 Reese hospitaliza d 09-01 13:45:00 [place] tion 13:45: [id number] 00 Allergies, Adverse Reactions, Alerts Allergy Name Allergy Status Severity Reaction(s) Onset Inactive Treating Comments Type Date Date Clinician streptomycin Base Active Unknown Reaction 2018-07 Interface Ingredient Unknown 08-17 Medications Ordered Filled Start Stop Current Ordering Indication Dosage Frequency Signature Comments Components Medication Medication Date Date Medication? Clinician (SIG) Name Name acetaminoph acetaminoph 2018-07- Yes [place] Unknown Unknown en 500 mg en 500 mg 09-10 Matthew GUTIERRES tablet tablet dexAMETHaso dexAMETHaso 2018-07- Yes [place] Unknown Unknown ne 2 mg ne 2 mg 09-10 Matthew GUTIERRES tablet tablet furosemide furosemide 2018-07- Yes [place] Unknown Unknown 20 mg 20 mg 09-10 Matthew GUTIERRES tablet tablet morphine ER morphine ER 2018-07- Yes [place] Unknown Unknown 15 mg 15 mg 09-10 Matthew GUTIERRES tablet,exte tablet,exte nded nded release release Klor-Con Klor-Con 2018-07- Yes [place] Unknown Unknown M20 mEq M20 mEq 09-10 Matthew GUTIERRES tablet,exte tablet,exte nded nded release release LORazepam LORazepam 2018-07- Yes [place] Unknown Unknown 0.5 mg 0.5 mg 09-10 , tablet tablet omeprazole omeprazole 2018-07- Yes [place] Unknown Unknown 20 mg 20 mg 09-10 Matthew GUTIERRES capsule,del capsule,del ayed ayed release release osimertinib osimertinib 2018-07- Yes [place] Unknown Unknown 80 mg 80 mg 09-10 Matthew GUTIERRES tablet tablet ondansetron ondansetron 2018-07- Yes [place] Unknown Unknown 4 mg 4 mg 09-10 Matthew GUTIERRES disintegrat disintegrat ing tablet ing tablet oxyCODONE 5 oxyCODONE 5 2018-07- Yes [place] Unknown Unknown mg tablet mg tablet 09-10 Matthew GUTIERRES osimertinib osimertinib 2018-07- Yes [place] Unknown Unknown 40 mg 40 mg 09-17 Cherri GUTIERRES tablet tablet morphine ER morphine ER 2018-07- Yes [place] Unknown Unknown 15 mg 15 mg 09-17 Cherri GUTIERRES tablet,exte tablet,exte nded nded release release LORazepam 1 LORazepam 1 2018-07- Yes [place] Unknown Unknown mg tablet mg tablet 09-17 Matthew GUTIERRES Vital Signs Vital Name Observation Time Observation Value Comments SYSTOLIC mm[Hg] 2019-09-01 18:10:12 130 mm[Hg] mm[Hg] Method: Sit SYSTOLIC mm[Hg] 2019-07-10 18:09:19 104 mm[Hg] mm[Hg] Method: Stand DIASTOLIC mm[Hg] 2019-09-01 18:10:12 70 mm[Hg] mm[Hg] Method: Sit DIASTOLIC mm[Hg] 2019-07-10 18:09:19 66 mm[Hg] mm[Hg] Method: Stand PULSE 2019-09-01 18:10:12 80 /min /min TEMP 2019-09-01 18:10:12 98.9 [degF] Procedures This patient has no known procedures. Results This patient has no known results.
--- OUTSIDE RECORDS SUMMARY | 2019-11-09 04:43 | XMS REPORT ---
:1950 Author Organization [facility] Care Team Providers Name Role Phone Unavailable Unavailable Unavailable Problems Condition Condition Condition Status Onset Resolution Last Treating Comments Name Details Category Date Date Treatment Clinician Date Wedge Wedge Diagnosis Active 2018-07 Reese compression compression 2 Tank fracture of fracture of [id number] unspecified unspecified lumbar lumbar vertebra, vertebra, subsequent subsequent encounter encounter for for fracture fracture with with routine routine healing healing Malignant Malignant Diagnosis Active 2018-07 Reese 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 Tank lower lobe, lower lobe, [id number] left left bronchus or bronchus or lung lung Disorder of Disorder of Diagnosis Active 2018-07 Reese brain, brain, 08-17 Tank unspecified unspecified [id number] Hyperlipide Hyperlipide Diagnosis Active 2018-07 Reese rhett, rhett, 08-17 Tank unspecified unspecified [id number] 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, terolemia, [id number] unspecified unspecified Cervicalgia Cervicalgia Diagnosis Active 2018-07 Reese 08-17 Tank [id number] Muscle Muscle Diagnosis Active Reese weakness weakness Tank (generalize (generalize [id number] d) d) [employer]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) Tank use of use of [id number] systemic systemic steroids steroids terminal worker [facility] Diagnosis Active Reese (current) (current) Tank use of use of [id number] anticoagula anticoagula nts nts [facility] Diagnosis Active Reese (current) (current) Tank use of use of [id number] opiate opiate analgesic analgesic Pain frequent Pain Mgmt Resolve 2018-072019-08-13 Linda pain d 2-12 14:25:00 [place] 11:00: [id number] 00 Respiratory dyspnea Respirator Resolve 2018-072019-08-07 Linda present y d 2-12 14:50:00 [place] 11:00: [id number] 00 Integument skin Integument Resolve 2018-072019-07-14 Linda integrity d 2-12 10:30:00 [place] risk 11:00: [id number] 00 Nutrition nutritional Nutrition Resolve 2018-072019-08-20 Linda restriction d 2-12 13:00:00 [place] s 11:00: [id number] 00 Nutrition changing Nutrition Resolve 2018-072019-08-13 Linda weight/appe d 2-12 14:25:00 [place] tite 11:00: [id number] 00 Elimination urinary Eliminatio Resolve 2018-072019-07-28 Linda incontinenc n d 2-12 13:56:00 [place] e 11:00: [id number] 00 Neuro confusion Neuro/Emot Resolve 2018-072019-08-20 Linda present ion d 2-12 13:00:00 [place] 11:00: [id number] 00 Neuro anxiety Neuro/Emot Resolve 2018-072019-08-20 Linda present ion d 2-12 13:00:00 [place] 11:00: [id number] 00 Activity ADL Activity Resolve 2018-072019-07-17 Linda assistance d 2-12 14:40:00 [place] required 11:00: [id number] 00 Activity self-care Activity Resolve 2018-072019-07-14 Linda deficit d 2-12 10:30:00 [place] 11:00: [id number] 00 Safety cannot be Safety Resolve 2018-072019-07-17 Linda left alone d 2-12 14:40:00 [place] 11:00: [id number] 00 Safety fall risk Safety Resolve 2018-072019-07-17 Linda factor d 2-12 14:40:00 [place] present 11:00: [id number] 00 Safety risk for Safety Resolve 2018-072019-07-17 Linda hospitaliza d 2-12 14:40:00 [place] tion 11:00: [id number] 00 Medication oral med Meds Resolve 2018-072019-07-28 Linda assistance d 2-12 13:56:00 [place] required 11:00: [id number] 00 Medication knowledge/s Meds Resolve 2018-072019-07-28 Linda kill d 2-12 13:56:00 [place] deficit: pt 11:00: [id number] 00 Diagnoses knowledge/s Diagnoses Active 2018-07 Linda kill 2- Mitra deficit: pt 11:00: [id number] 00 Diagnoses knowledge/s Diagnoses Active 2018-07 Linda kill 09-10 [place] deficit: cg 11:00: [id number] 00 Musculoskel transfer Musculoske Resolve 2018-072019-08-07 Linda etal assistance letal d 2-12 14:50:00 [place] required 11:00: [id number] 00 Musculoskel requires Musculoske Resolve 2018-072019-08-07 Linda etal human letal d 2-12 14:50:00 [place] assist to 11:00: [id number] leave home 00 Nutrition nutritional Nutrition Resolve 2018-072019-08-20 Reese risk d 2-12 13:00:00 [place] 15:25: [id number] 00 Bed transfer PT/OT: Bed Active 2018-07 Reese Mobility/Tr deficit: Mobility/T 2-12 Tank ansfer sit/stand ransfer 15:25: [id number] 00 Bed transfer PT/OT: Bed Active 2018-07 Reese Mobility/Tr deficit: Mobility/T 2-12 Tank ansfer toilet/comm ransfer 15:25: [id number] ode 00 Bed transfer PT/OT: Bed Active 2018-07 Reese Mobility/Tr deficit: Mobility/T 2-12 Tank ansfer shower/tub ransfer 15:25: [id number] 00 Bed transfer PT/OT: Bed Active 2018-07 Reese Mobility/Tr deficit: Mobility/T 2-12 Tank ansfer vehicle ransfer 15:25: [id number] 00 Bed knowledge/s PT/OT: Bed Active 2018-07 Reese Mobility/Tr kill Mobility/T 2-12 Tank ansfer deficit: pt ransfer 15:25: [id number] 00 Bed bed PT/OT: Bed Active 2018-07 Reese Mobility/Tr mobility Mobility/T 2-12 Tank ansfer deficit ransfer 15:25: [id number] 00 Gait/Locomo gait PT/OT: Active 2018-07 Reese tion assistive Gait/Locom 2-12 Tank problems device otion 15:25: [id number] present 00 Gait/Locomo knowledge/s PT/OT: Active 2018-07 Reese tion kill Gait/Locom 2-12 Tank problems deficit: pt otion 15:25: [id number] 00 Gait/Locomo gait PT/OT: Active 2018-07 Reese tion deficit Gait/Locom 2-12 Tank problems otion 15:25: [id number] 00 Safety risk for Safety Resolve 2018-072019-08-13 Ashley hospitaliza d 2-23 14:25:00 [place] tion 13:00: [id number] 00 24 Hr Diet nutrition NT: 24Hr Resolve 2018-072019-08-11 Ashley intake Diet d 2-23 15:55:00 [place] deficit 13:00: [id number] 00 24 Hr Diet knowledge/s NT: 24Hr Resolve 2018-072019-07-21 Ashley kill Diet d 2-23 13:00:00 [place] deficit - 13:00: [id number] pt 00 24 Hr Diet knowledge/s NT: 24Hr Resolve 2018-072019-07-21 Ashley kill Diet d 2-23 13:00:00 [place] deficit - 13:00: [id number] cg 00 Nutritional eating NT: Resolve 2018-072019-07-21 [place] Barrier difficultie Barriers d 2- 13:00:00 [place] s present 13:00: [id number] 00 Neuro impaired Neuro/Emot Resolve 2018-072019-08-20 [place]oli decision-ma ion d 2- 13:00:00 [place] danny 14:15: RN 00 Safety cannot be Safety Resolve 2018-072019-08-13 [place] left alone d 2- 14:25:00 [place] 14:15: RN 00 Cardio edema Cardiovasc Resolve 2018-072019-08-13 [place] ular d 2- 14:25:00 [place] 13:56: RN 00 24 Hr Diet nutrition NT: 24Hr Unknown 2018-07 Loli intake Diet 2-30 [place] deficit 13:56: RN 00 Medication knowledge/s Meds Resolve 2019-08-04 Loli kill d 1-02 14:06:00 [place] deficit: pt 13:07: RN 00 Musculoskel requires Musculoske Resolve 2019-08-28 Loli etal human letal d 1-15 13:10:00 [place] assist to 14:25: RN leave home 00 Safety risk for Safety Resolve 2019-08-20 Reese ramireza d - 13:00:00 [place] tion 16:00: [id number] 00 Safety can be left Safety Resolve 2019-08-20 [place] alone for d 08-20 13:00:00 [place] only short 13:00: RN periods 00 Safety risk for Safety Resolve 2019-08-28 Reese hospitalkathryna d 08-25 13:10:00 [place] tion 14:45: [id number] 00 Neuro impaired Neuro/Emot Active [place] decision-ma ion 08-28 [place] danny 13:10: RN 00 Safety can be left Safety Active [place] alone for 08-28 [place] only short 13:10: RN periods 00 Safety risk for Safety Active Reese nicholsona 09-01 [place] tion 13:45: [id number] 00 Allergies, Adverse Reactions, Alerts Allergy Name Allergy Status Severity Reaction(s) Onset Inactive Treating Comments Type Date Date Clinician streptomycin Base Active Unknown Reaction 2018-07 Interface Ingredient Unknown 08-17 Medications Ordered Filled Start Stop Current Ordering Indication Dosage Frequency Signature Comments Components Medication Medication Date Date Medication? Clinician (SIG) Name Name acetaminoph acetaminoph 2018-07 Yes [place] Unknown Unknown en 500 mg en 500 mg 09-10 Matthew GUTIERRES tablet tablet dexAMETHaso dexAMETHaso 2018-07 Yes [place] Unknown Unknown ne 2 mg ne 2 mg 09-10 Matthew GUTIERRES tablet tablet furosemide furosemide 2018-07- Yes [place] Unknown Unknown 20 mg 20 mg 09-10 Matthew GUTIERRES tablet tablet morphine ER morphine ER 2018-07- Yes [place] Unknown Unknown 15 mg 15 mg 09-10 Matthew GUTIERRES tablet,exte tablet,exte nded nded release release Klor-Con Klor-Con 2018-07- Yes [place] Unknown Unknown M20 mEq M20 mEq 09-10 Matthew GUTIERRES tablet,exte tablet,exte nded nded release release LORazepam LORazepam 2018-07- Yes [place] Unknown Unknown 0.5 mg 0.5 mg 09-10 Matthew GUTIERRES tablet tablet omeprazole omeprazole 2018-07 Yes [place] Unknown Unknown 20 mg 20 mg 09-10 Matthew GUTIERRES capsule,del capsule,del ayed ayed release release osimertinib osimertinib 2018-07- Yes [place] Unknown Unknown 80 mg 80 mg 09-10- Matthew GUTIERRES tablet tablet ondansetron ondansetron 2018-07 Yes [place] Unknown Unknown 4 mg 4 mg 09-10 Matthew GUTIERRES disintegrat disintegrat ing tablet ing tablet oxyCODONE 5 oxyCODONE 5 2018-07 Yes [place] Unknown Unknown mg tablet mg tablet 09-10 Matthew GUTIERRES osimertinib osimertinib 2018-07 Yes [place] Unknown Unknown 40 mg 40 mg 09-17 ,Cherri tablet tablet morphine ER morphine ER 2018-07 Yes [place] Unknown Unknown 15 mg 15 mg 09-17 Cherri GUTIERRES tablet,exte tablet,exte nded nded release release LORazepam 1 LORazepam 1 2018-07 Yes [place] Unknown Unknown mg tablet mg tablet 09-17 Matthew GUTIERRES Vital Signs Vital Name Observation Time Observation Value Comments SYSTOLIC mm[Hg] 2019-09-01 18:10:12 130 mm[Hg] mm[Hg] Method: Sit SYSTOLIC mm[Hg] 2019-07-10 18:09:19 104 mm[Hg] mm[Hg] Method: Stand DIASTOLIC mm[Hg] 2019-09-01 18:10:12 70 mm[Hg] mm[Hg] Method: Sit DIASTOLIC mm[Hg] 2019-07-10 18:09:19 66 mm[Hg] mm[Hg] Method: Stand PULSE 2019-09-01 18:10:12 80 /min /min RESP RATE 2019-08-28 18:10:08 16 /min /min TEMP 2019-09-01 18:10:12 98.9 [degF] Procedures This patient has no known procedures. Results This patient has no known results.
--- OUTSIDE RECORDS SUMMARY | 2019-11-09 04:43 | XMS REPORT ---
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, lower lobe, [id number] left left bronchus or bronchus or lung lung Disorder of Disorder of Diagnosis Active 2018-07 Reese brain, brain, 08-17 [place] unspecified unspecified [id number] Hyperlipide Hyperlipide Diagnosis Active 2018-07 Reese rhett, rhett, 08-17 [place] unspecified unspecified [id number] 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, terolemia, [id number] unspecified unspecified Cervicalgia Cervicalgia Diagnosis Active 2018-07 Reese 08-17 [place] [id number] Muscle Muscle Diagnosis Active Reese weakness weakness [place] (generalize (generalize [id number] d) d) 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) (current) [place] use of use of [id number] systemic systemic steroids steroids 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 Reese (current) (current) [place] use of use of [id number] anticoagula anticoagula nts nts care home care home Diagnosis Active Reese (current) (current) [place] use of use of [id number] opiate opiate analgesic analgesic Pain frequent Pain Mgmt Resolve 2018-072019-08-13 Linda pain d 2-12 14:25:00 [place] 11:00: [id number] Respiratory dyspnea Respirator Resolve 2018-072019-08-07 Linda present y d 2-12 14:50:00 [place] 11:00: [id number] 00 Integument skin Integument Resolve 2018-072019-07-14 Linda integrity d 2-12 10:30:00 [place] risk 11:00: [id number] 00 Nutrition nutritional Nutrition Resolve 2018-072019-08-20 Linda restriction d 2-12 13:00:00 [place] s 11:00: [id number] 00 Nutrition changing Nutrition Resolve 2018-072019-08-13 Linda weight/appe d 2-12 14:25:00 [place] tite 11:00: [id number] 00 Elimination urinary Eliminatio Resolve 2018-072019-07-28 Linda incontinenc n d 2-12 13:56:00 [place] e 11:00: [id number] 00 Neuro confusion Neuro/Emot Resolve 2018-072019-08-20 Linda present ion d 2-12 13:00:00 [place] 11:00: [id number] 00 Neuro anxiety Neuro/Emot Resolve 2018-072019-08-20 Linda present ion d 2-12 13:00:00 [place] 11:00: [id number] 00 Activity ADL Activity Resolve 2018-072019-07-17 Linda assistance d 2-12 14:40:00 [place] required 11:00: [id number] 00 Activity self-care Activity Resolve 2018-072019-07-14 Linda deficit d 2-12 10:30:00 [place] 11:00: [id number] 00 Safety cannot be Safety Resolve 2018-072019-07-17 Linda left alone d 2-12 14:40:00 [place] 11:00: [id number] 00 Safety fall risk Safety Resolve 2018-072019-07-17 Linda factor d 2-12 14:40:00 [place] present 11:00: [id number] Safety risk for Safety Resolve 2018-072019-07-17 Linda hospitaliza d 2-12 14:40:00 [place] tion 11:00: [id number] 00 Medication oral med Meds Resolve 2018-072019-07-28 Linda assistance d 2-12 13:56:00 [place] required 11:00: [id number] 00 Medication knowledge/s Meds Resolve 2018-072019-07-28 Linda kill d 2-12 13:56:00 [place] deficit: pt 11:00: [id number] 00 Diagnoses knowledge/s Diagnoses Resolve 2018-072019-09-01 Linda kill d 2-12 13:45:00 [place] deficit: pt 11:00: [id number] 00 Diagnoses knowledge/s Diagnoses Resolve 2018-072019-09-01 Linda kill d 2-12 13:45:00 [place] deficit: cg 11:00: [id number] 00 Musculoskel transfer Musculoske Resolve 2018-072019-08-07 Linda etal assistance letal d 2-12 14:50:00 [place] required 11:00: [id number] 00 Musculoskel requires Musculoske Resolve 2018-072019-08-07 Linda etal human letal d 2-12 14:50:00 [place] assist to 11:00: [id number] leave home 00 Nutrition nutritional Nutrition Resolve 2018-072019-08-20 Reese risk d 2-12 13:00:00 [place] 15:25: [id number] 00 Bed transfer PT/OT: Bed Resolve 2018-072019-09-01 [place] Mobility/Tr deficit: Mobility/T d 2-12 13:45:00 [place] prado sit/stand ransfer 15:25: [id number] 00 Bed transfer PT/OT: Bed Resolve 2018-072019-09-01 [place] Mobility/Tr deficit: Mobility/T d 2-12 13:45:00 [place] prado toilet/comm ransfer 15:25: [id number] 00 Bed transfer PT/OT: Bed Resolve 2018-072019-09-01 [place]ese Mobility/Tr deficit: Mobility/T d 2-12 13:45:00 [place] prado shower/tub ransfer 15:25: [id number] 00 Bed transfer PT/OT: Bed Resolve 2018-072019-09-01 Reese Mobility/Tr deficit: Mobility/T d 2-12 13:45:00 [place] prado vehicle ransfer 15:25: [id number] 00 Bed knowledge/s PT/OT: Bed Resolve 2018-072019-09-01 Reese Mobility/Tr kill Mobility/T d 2-12 13:45:00 [place] prado deficit: pt ransfer 15:25: [id number] 00 Bed bed PT/OT: Bed Resolve 2018-072019-09-01 Reese Mobility/Tr mobility Mobility/T d 2-12 13:45:00 [place] ansfer deficit ransfer 15:25: [id number] 00 Gait/Locomo gait PT/OT: Resolve 2018-072019-09-01 Reese tion assistive Gait/Locom d 2-12 13:45:00 [place] problems device otion 15:25: [id number] present 00 Gait/Locomo knowledge/s PT/OT: Resolve 2018-072019-09-01 Reese tion kill Gait/Locom d 2-12 13:45:00 [place] problems deficit: pt otion 15:25: [id number] 00 Gait/Locomo gait PT/OT: Resolve 2018-072019-09-01 Reese tion deficit Gait/Locom d 2-12 13:45:00 [place] problems otion 15:25: [id number] 00 Safety risk for Safety Resolve 2018-072019-08-13 Ashley hospitaliza d 2-23 14:25:00 [place] tion 13:00: [id number] 24 Hr Diet nutrition NT: 24Hr Resolve 2018-072019-08-11 Ashley intake Diet d 2-23 15:55:00 [place] deficit 13:00: [id number] 00 24 Hr Diet knowledge/s NT: 24Hr Resolve 2018-072019-07-21 Ashley kill Diet d 2-23 13:00:00 [place] deficit - 13:00: [id number] pt 00 24 Hr Diet knowledge/s NT: 24Hr Resolve 2018-072019-07-21 Ashley kill Diet d 2-23 13:00:00 [place] deficit - 13:00: [id number] cg 00 Nutritional eating NT: Resolve 2018-072019-07-21 Ashley Barrier difficultie Barriers d 2-23 13:00:00 [place] s present 13:00: [id number] 00 Neuro impaired Neuro/Emot Resolve 2018-072019-08-20 Loli [...] hospitaliza d - 13:00:00 [place] tion 16:00: [id number] 00 Safety can be left Safety Resolve 2019-08-20 [place]oli alone for d 08-20 13:00:00 [place] only short 13:00: RN periods 00 Safety risk for Safety Resolve 2019-08-28 Reese hospitaliza d 08-25 13:10:00 [place] tion 14:45: [id number] 00 Neuro impaired Neuro/Emot Resolve 2019-09-01 [place]oli decision-ma ion d 08-28 13:45:00 [place] danny 13:10: RN 00 Safety can be left Safety Resolve 2019-09-01 [place] alone for d 08-28 13:45:00 [place] only short 13:10: RN periods 00 Safety risk for Safety Resolve 2019-09-01 Reese hospitaliza d 09-01 13:45:00 [place] tion 13:45: [id number] 00 Allergies, Adverse Reactions, Alerts Allergy Name Allergy Status Severity Reaction(s) Onset Inactive Treating Comments Type Date Date Clinician streptomycin Base Active Unknown Reaction 2018-07 Interface Ingredient Unknown 08-17 Medications Ordered Filled Start Stop Current Ordering Indication Dosage Frequency Signature Comments Components Medication Medication Date Date Medication? Clinician (SIG) Name Name acetaminoph acetaminoph 2018-07- Yes [place] Unknown Unknown en 500 mg en 500 mg 09-10 Matthew GUTIERRES tablet tablet dexAMETHaso dexAMETHaso 2018-07- Yes [place] Unknown Unknown ne 2 mg ne 2 mg 09-10 Matthew GUTIERRES tablet tablet furosemide furosemide 2018-07- Yes [place] Unknown Unknown 20 mg 20 mg 09-10 Matthew GUTIERRES tablet tablet morphine ER morphine ER 2018-07- Yes [place] Unknown Unknown 15 mg 15 mg 09-10 Matthew GUTIERRES tablet,exte tablet,exte nded nded release release Klor-Con Klor-Con 2018-07- Yes [place] Unknown Unknown M20 mEq M20 mEq 09-10 Matthew GUTIERRES tablet,exte tablet,exte nded nded release release LORazepam LORazepam 2018-07- Yes [place] Unknown Unknown 0.5 mg 0.5 mg 09-10 , tablet tablet omeprazole omeprazole 2018-07- Yes [place] Unknown Unknown 20 mg 20 mg 09-10 Matthew GUTIERRES capsule,del capsule,del ayed ayed release release osimertinib osimertinib 2018-07- Yes [place] Unknown Unknown 80 mg 80 mg 09-10 Matthew GUTIERRES tablet tablet ondansetron ondansetron 2018-07- Yes [place] Unknown Unknown 4 mg 4 mg 09-10 Matthew GUTIERRES disintegrat disintegrat ing tablet ing tablet oxyCODONE 5 oxyCODONE 5 2018-07- Yes [place] Unknown Unknown mg tablet mg tablet 09-10 Matthew GUTIERRES osimertinib osimertinib 2018-07- Yes [place] Unknown Unknown 40 mg 40 mg 09-17 Cherri GUTIERRES tablet tablet morphine ER morphine ER 2018-07- Yes [place] Unknown Unknown 15 mg 15 mg 09-17 Cherri GUTIERRES tablet,exte tablet,exte nded nded release release LORazepam 1 LORazepam 1 2018-07- Yes [place] Unknown Unknown mg tablet mg tablet 09-17 [...]
== END 2019-11-09 04:23 | disposition home or self-care (01) ==
LOC: ED 00:45
DX: R42 Dizziness and giddiness (principal); C34.90 Malignant neoplasm of unspecified part of unspecified bronchus or lung; R51 Headache; E78.00 Pure hypercholesterolemia, unspecified; Z91.81 History of falling; Z79.899 Other long term (current) drug therapy; Z87.891 Personal history of nicotine dependence; Z92.21 Personal history of antineoplastic chemotherapy
CPT/HCPCS: 36415; 70450; 80053; 81003; 83605; 83735; 84443; 84484; 85025; 85610; 93005; 96360; 99283

== ENCOUNTER 2020-03-02 19:37 | Inpatient (IN) ==
[2020-03-02] MEDS ORDERED: NS 0.9% 1000 ml BAG 1,000 ML IV ONE (19:41)
[2020-03-02] MEDS ORDERED: Pantoprazole VIAL 40 MG VIAL IV ONE (19:41)
[2020-03-02 20:34] LABS: ABS Lymphocytes 0.5 10^3/ul (1.0-4.8); ABS Monocytes 0.8 10^3/ul (0-0.8); ABS Neutrophils 9.4 10^3/ul (1.5-7.7); Eosinophil % 0.1 %; Hematocrit 42 % (35-47); Hemoglobin 14.5 g/dL (12.0-16.0); Lymphocyte % 4.2 %; Mean Corpuscular HGB Conc 34 g/dL (31-36); Mean Corpuscular Hemoglobin 31 pg (27-31); Mean Corpuscular Volume 90 fL (80-97); Platelet Count 227 10^3/uL (150-450); Red Blood Count 4.73 10^6 /uL (3.70-4.87); Red Cell Distribution Width 15 % (10-15); White Blood Count 10.7 10^3/uL (3.5-10.8)
[2020-03-02 20:44] LABS: Activated Partial Thrombo Time 26.4 seconds (26.0-38.0); INR 0.94 (0.82-1.09)
[2020-03-02 20:52] LABS: Albumin 4.1 g/dL (3.2-5.2); Albumin/Globulin Ratio 1.6 (1-3); BUN/Creatinine Ratio 20.5 (8-20); Calcium 9.2 mg/dL (8.6-10.3); EGFR African American 88.6 (>60); EGFR Non-African American 73.2 (>60); Globulin 2.5 g/dL (2-4); Potassium 3.7 mmol/L (3.5-5.0); Total Bilirubin 0.5 mg/dL (0.2-1.0); Total Protein 6.6 g/dL (6.4-8.9)
[2020-03-02] MEDS ORDERED: Ondansetron 4 mg VIAL 2 MG/ML 2 ml VIAL IV PRN (22:23)
[2020-03-02] MEDS ORDERED: NS 0.9% 1000 ml BAG 1,000 ML IV SCH (22:30)
[2020-03-03] MEDS: Morphine ER 15 mg TAB ** extended release PO SCH ×2 (02:22→21:42)
[2020-03-03 02:23] LABS: Hematocrit 41 % (35-47); Hemoglobin 14.1 g/dL (12.0-16.0)
[2020-03-03] MEDS: Pantoprazole 80 mg in NS BAG 80 MG/250 ML BAG IV SCH ×2 (03:07→16:10)
[2020-03-03] MEDS ORDERED: Iohexol 300 (CONTRAST) 10 ML SDV IV ONE (03:53)
[2020-03-03 05:32] LABS: Hematocrit 41 % (35-47); Hemoglobin 13.8 g/dL (12.0-16.0); Mean Corpuscular HGB Conc 34 g/dL (31-36); Mean Corpuscular Hemoglobin 30 pg (27-31); Mean Corpuscular Volume 89 fL (80-97); Mean Platelet Volume 8.1 fL (7.4-10.4); Platelet Count 209 10^3/uL (150-450); Red Blood Count 4.55 10^6 /uL (3.70-4.87); Red Cell Distribution Width 15 % (10-15); White Blood Count 13.5 10^3/uL (3.5-10.8)
[2020-03-03 05:56] LABS: Calcium 7.6 mg/dL (8.6-10.3)
[2020-03-03 06:02] LABS: BUN/Creatinine Ratio 21.8 (8-20); EGFR African American 132.6 (>60); EGFR Non-African American 109.6 (>60)
[2020-03-03] MEDS ORDERED: Cholecalciferol (VIT D3) 1,000 unit TAB PO SCH (09:00)
[2020-03-03] MEDS ORDERED: OMEPRAZOLE 20 MG PO SCH (09:00)
[2020-03-03] MEDS: Morphine 2 MG/ML SYRINGE IV PRN (10:47)
[2020-03-03] MEDS ORDERED: Piperacillin/Tazobac ADVAN 3.375 GM in NS 0.9% 100 ml BAG 100 ML IV ONE (11:00)
[2020-03-03] MEDS ORDERED: Zosyn per Pharmacy NOTE FOLLOW UP SCH (11:00)
[2020-03-03] MEDS: KCL 20 MEQ/100 ML IVPREMIX 20 MEQ/100 ML BAG IV SCH ×2 (11:37→16:10)
[2020-03-03] MEDS: NS 0.9% 1000 ml BAG 1,000 ML IV SCH (16:14)
[2020-03-03] MEDS ORDERED: PEG 3000 GI LAVAGE 1 GALLON PO ONE (17:06)
[2020-03-03] MEDS: ZOSYN 3.375 GM Q8H per EXTENDED INFUSION IV SCH (23:15)
[2020-03-04] MEDS: ZOSYN 3.375 GM Q8H per EXTENDED INFUSION IV SCH ×4 (00:20→23:14)
[2020-03-04] MEDS: Morphine 2 MG/ML SYRINGE IV PRN ×2 (00:40→02:46)
[2020-03-04 05:45] LABS: ABS Basophils 0.1 10^3/ul (0-0.2); ABS Eosinophils 0.2 10^3/ul (0-0.6); ABS Lymphocytes 0.8 10^3/ul (1.0-4.8); ABS Monocytes 0.9 10^3/ul (0-0.8); ABS Neutrophils 12.5 10^3/ul (1.5-7.7); Eosinophil % 1.6 %; Hematocrit 37 % (35-47); Hemoglobin 12.6 g/dL (12.0-16.0); Lymphocyte % 5.5 %; Mean Corpuscular HGB Conc 34 g/dL (31-36); Mean Corpuscular Hemoglobin 30 pg (27-31); Mean Corpuscular Volume 90 fL (80-97); Mean Platelet Volume 8.1 fL (7.4-10.4); Platelet Count 205 10^3/uL (150-450); Red Blood Count 4.15 10^6 /uL (3.70-4.87); Red Cell Distribution Width 15 % (10-15); White Blood Count 14.5 10^3/uL (3.5-10.8)
[2020-03-04] MEDS: Pantoprazole 80 mg in NS BAG 80 MG/250 ML BAG IV SCH (05:54)
[2020-03-04 06:03] LABS: BUN/Creatinine Ratio 20.4 (8-20); Calcium 7.4 mg/dL (8.6-10.3); EGFR African American 135.4 (>60); EGFR Non-African American 111.9 (>60); Magnesium 2.1 mg/dL (1.9-2.7); Potassium 3.3 mmol/L (3.5-5.0)
[2020-03-04] MEDS: Pantoprazole VIAL 40 MG VIAL IV SCH ×2 (07:16→21:13)
[2020-03-04] MEDS: NS 0.9% 1000 ml BAG 1,000 ML IV SCH (13:13)
[2020-03-04] MEDS: KCL 20 MEQ/100 ML IVPREMIX 20 MEQ/100 ML BAG IV SCH ×2 (14:07→16:34)
[2020-03-04] MEDS ORDERED: KCL 20 MEQ/100 ML IVPREMIX 20 MEQ/100 ML BAG IV ONE (17:00)
[2020-03-04] MEDS: Morphine ER 15 mg TAB ** extended release PO SCH (21:13)
[2020-03-05 06:00] LABS: ABS Basophils 0.1 10^3/ul (0-0.2); ABS Eosinophils 0.6 10^3/ul (0-0.6); ABS Lymphocytes 1.2 10^3/ul (1.0-4.8); ABS Monocytes 0.7 10^3/ul (0-0.8); ABS Neutrophils 8.8 10^3/ul (1.5-7.7); Eosinophil % 5.4 %; Hematocrit 34 % (35-47); Hemoglobin 11.6 g/dL (12.0-16.0); Lymphocyte % 10.8 %; Mean Corpuscular HGB Conc 34 g/dL (31-36); Mean Corpuscular Hemoglobin 31 pg (27-31); Mean Corpuscular Volume 91 fL (80-97); Mean Platelet Volume 8.4 fL (7.4-10.4); Platelet Count 187 10^3/uL (150-450); Red Blood Count 3.71 10^6 /uL (3.70-4.87); Red Cell Distribution Width 15 % (10-15); White Blood Count 11.4 10^3/uL (3.5-10.8)
[2020-03-05 06:15] LABS: Calcium 7.5 mg/dL (8.6-10.3); Potassium 3.5 mmol/L (3.5-5.0)
[2020-03-05 06:21] LABS: EGFR African American 127.2 (>60); EGFR Non-African American 105.2 (>60)
[2020-03-05] MEDS: ZOSYN 3.375 GM Q8H per EXTENDED INFUSION IV SCH ×3 (06:22→23:26)
[2020-03-05] MEDS: Ciproflox/Dexameth OTIC.SUSP 7.5 ML BTL LEFT EAR SCH ×2 (08:18→20:47)
[2020-03-05] MEDS: Pantoprazole VIAL 40 MG VIAL IV SCH ×2 (08:19→20:47)
[2020-03-05] MEDS: NS 0.9% 1000 ml BAG 1,000 ML IV SCH (11:02)
[2020-03-05] MEDS: Morphine 2 MG/ML SYRINGE IV PRN (15:10)
[2020-03-05 15:14] LABS: Adenovirus F40/41 Negative (Negative); Astrovirus Negative (Negative); Cryptosporidium species Negative (Negative); Cyclospora cayetanensis Negative (Negative); Entamoeba histolytica Negative (Negative); Enteroaggregative E.coli(EAEC) Negative (Negative); Enteropathogenic Ecoli(EPEC) Negative (Negative); Enterotoxigenic Ecoli(ETEC) Negative (Negative); Norovirus GI/GII Negative (Negative); Plesiomonas shigelloides Negative (Negative); Salmonella species Negative (Negative); Sapovirus Negative (Negative); Shiga toxin producing E. coli Negative (Negative); Shigella/Enteroinvasive E.coli Negative (Negative); Specimen Source STOOL; Vibrio cholerae Negative (Negative); Yersinia species Negative (Negative)
[2020-03-05] MEDS: Morphine ER 15 mg TAB ** extended release PO SCH (20:47)
[2020-03-06] MEDS: NS 0.9% 1000 ml BAG 1,000 ML IV SCH ×3 (00:31→18:25)
[2020-03-06 06:14] LABS: ABS Eosinophils 0.5 10^3/ul (0-0.6); ABS Lymphocytes 1.1 10^3/ul (1.0-4.8); ABS Monocytes 0.6 10^3/ul (0-0.8); ABS Neutrophils 4.1 10^3/ul (1.5-7.7); Eosinophil % 8.5 %; Hematocrit 33 % (35-47); Hemoglobin 11.2 g/dL (12.0-16.0); Lymphocyte % 17.4 %; Mean Corpuscular HGB Conc 34 g/dL (31-36); Mean Corpuscular Hemoglobin 31 pg (27-31); Mean Corpuscular Volume 90 fL (80-97); Mean Platelet Volume 7.6 fL (7.4-10.4); Platelet Count 194 10^3/uL (150-450); Red Blood Count 3.64 10^6 /uL (3.70-4.87); Red Cell Distribution Width 15 % (10-15); White Blood Count 6.4 10^3/uL (3.5-10.8)
[2020-03-06 06:30] LABS: Albumin 2.8 g/dL (3.2-5.2); Albumin/Globulin Ratio 1.5 (1-3); BUN/Creatinine Ratio 8.6 (8-20); Calcium 7.7 mg/dL (8.6-10.3); EGFR African American 124.7 (>60); EGFR Non-African American 103.1 (>60); Globulin 1.9 g/dL (2-4); Magnesium 2.1 mg/dL (1.9-2.7); Potassium 3.3 mmol/L (3.5-5.0); Total Bilirubin 0.4 mg/dL (0.2-1.0); Total Protein 4.7 g/dL (6.4-8.9)
[2020-03-06] MEDS: Pantoprazole VIAL 40 MG VIAL IV SCH (08:52)
[2020-03-06] MEDS: ZOSYN 3.375 GM Q8H per EXTENDED INFUSION IV SCH ×3 (08:52→22:48)
[2020-03-06] MEDS: Ciproflox/Dexameth OTIC.SUSP 7.5 ML BTL LEFT EAR SCH ×2 (08:56→19:59)
[2020-03-06] MEDS ORDERED: NS 0.9% 100 ml BAG 100 ML ONE (13:45)
[2020-03-06] MEDS: Morphine 2 MG/ML SYRINGE IV PRN (13:57)
[2020-03-06] MEDS: Morphine ER 15 mg TAB ** extended release PO SCH (19:58)
[2020-03-07] MEDS ORDERED: Famotidine IV 10 MG/ML 2 ml VIAL (20 mg) IV SLOW PU ONE (02:16)
[2020-03-07 06:09] LABS: ABS Basophils 0.1 10^3/ul (0-0.2); ABS Eosinophils 0.5 10^3/ul (0-0.6); ABS Lymphocytes 1.6 10^3/ul (1.0-4.8); ABS Monocytes 0.7 10^3/ul (0-0.8); ABS Neutrophils 4.7 10^3/ul (1.5-7.7); Eosinophil % 7.1 %; Hematocrit 39 % (35-47); Hemoglobin 13.2 g/dL (12.0-16.0); Lymphocyte % 20.7 %; Mean Corpuscular HGB Conc 34 g/dL (31-36); Mean Corpuscular Hemoglobin 31 pg (27-31); Mean Corpuscular Volume 90 fL (80-97); Mean Platelet Volume 8.1 fL (7.4-10.4); Platelet Count 250 10^3/uL (150-450); Red Blood Count 4.34 10^6 /uL (3.70-4.87); Red Cell Distribution Width 15 % (10-15); White Blood Count 7.6 10^3/uL (3.5-10.8)
[2020-03-07 06:27] LABS: BUN/Creatinine Ratio 6.3 (8-20); Calcium 8.6 mg/dL (8.6-10.3); EGFR African American 111.3 (>60); Magnesium 2.2 mg/dL (1.9-2.7); Potassium 3.1 mmol/L (3.5-5.0)
[2020-03-07] MEDS: ZOSYN 3.375 GM Q8H per EXTENDED INFUSION IV SCH ×3 (07:40→23:43)
[2020-03-07] MEDS: Ciproflox/Dexameth OTIC.SUSP 7.5 ML BTL LEFT EAR SCH ×2 (10:03→20:08)
[2020-03-07] MEDS: KCL 20 MEQ/100 ML IVPREMIX 20 MEQ/100 ML BAG IV SCH ×3 (15:12→20:17)
[2020-03-07] MEDS: NS 0.9% 1000 ml BAG 1,000 ML IV SCH (15:12)
[2020-03-07] MEDS: Morphine ER 15 mg TAB ** extended release PO SCH (20:08)
[2020-03-08 07:33] LABS: ABS Basophils 0.1 10^3/ul (0-0.2); ABS Eosinophils 0.4 10^3/ul (0-0.6); ABS Lymphocytes 1.2 10^3/ul (1.0-4.8); ABS Monocytes 0.6 10^3/ul (0-0.8); ABS Neutrophils 3.8 10^3/ul (1.5-7.7); Eosinophil % 7.2 %; Hematocrit 35 % (35-47); Hemoglobin 11.9 g/dL (12.0-16.0); Lymphocyte % 19.7 %; Mean Corpuscular HGB Conc 34 g/dL (31-36); Mean Corpuscular Hemoglobin 31 pg (27-31); Mean Corpuscular Volume 90 fL (80-97); Mean Platelet Volume 7.7 fL (7.4-10.4); Platelet Count 214 10^3/uL (150-450); Red Blood Count 3.86 10^6 /uL (3.70-4.87); Red Cell Distribution Width 15 % (10-15); White Blood Count 6.1 10^3/uL (3.5-10.8)
[2020-03-08] MEDS: ZOSYN 3.375 GM Q8H per EXTENDED INFUSION IV SCH ×3 (07:41→23:07)
[2020-03-08 07:44] LABS: BUN/Creatinine Ratio 16.1 (8-20); Calcium 8.9 mg/dL (8.6-10.3); EGFR African American 115.5 (>60); EGFR Non-African American 95.4 (>60); Potassium 3.8 mmol/L (3.5-5.0)
[2020-03-08] MEDS: Ciproflox/Dexameth OTIC.SUSP 7.5 ML BTL LEFT EAR SCH ×2 (07:53→23:17)
[2020-03-08] MEDS: Morphine ER 15 mg TAB ** extended release PO SCH (23:10)
[2020-03-09] MEDS: NS 0.9% 1000 ml BAG 1,000 ML IV SCH (05:28)
[2020-03-09] MEDS: ZOSYN 3.375 GM Q8H per EXTENDED INFUSION IV SCH (07:35)
[2020-03-09] MEDS: Ciproflox/Dexameth OTIC.SUSP 7.5 ML BTL LEFT EAR SCH (07:36)
[2020-03-09 15:45] VITALS: BP 127/75
== END 2020-03-09 12:05 | disposition home or self-care (01) | DRG 394 ==
LOC: ED 19:37 → MED 19:37
PROVIDERS: ADMIT Internal Medicine; ATTEND Internal Medicine

== ENCOUNTER 2021-01-11 11:04 | Inpatient (IN) ==
[2021-01-11 12:13] LABS: Hematocrit 49 % (35-47); Mean Corpuscular HGB Conc 35 g/dL (31-36); Mean Corpuscular Hemoglobin 31 pg (27-31); Mean Corpuscular Volume 90 fL (80-97); Mean Platelet Volume 8.3 fL (7.4-10.4); Platelet Count 215 10^3/uL (150-450); Red Cell Distribution Width 14 % (10-15); White Blood Count 13.1 10^3/uL (3.5-10.8)
[2021-01-11 12:27] LABS: Albumin 3.4 g/dL (3.2-5.2); Calcium 9.4 mg/dL (8.6-10.3); Magnesium 2.1 mg/dL (1.9-2.7); Total Bilirubin 0.8 mg/dL (0.2-1.0)
[2021-01-11 12:33] LABS: Albumin/Globulin Ratio 1.2 (1-3); EGFR African American 132.2 (>60); EGFR Non-African American 109.3 (>60); Globulin 2.8 g/dL (2-4); Total Protein 6.2 g/dL (6.4-8.9)
[2021-01-11] MEDS ORDERED: Iohexol 350 (CONTRAST) 500 ML MDV IV ONE (12:44)
[2021-01-11] MEDS ORDERED: NS 0.9% 1000 ml BAG 1,000 ML IV ONE (13:13)
[2021-01-11 13:16] LABS: ABS Basophils 0.1 10^3/ul (0-0.2); ABS Eosinophils 0.1 10^3/ul (0-0.6); ABS Lymphocytes 1.4 10^3/ul (1.0-4.8); ABS Neutrophils 10.5 10^3/ul (1.5-7.7); Eosinophil % 0.4 %; Lymphocyte % 10.5 %
[2021-01-11] MEDS ORDERED: Ondansetron 4 mg VIAL 2 MG/ML 2 ml VIAL IV PRN (16:48)
[2021-01-11] MEDS ORDERED: Morphine 2 MG/ML SYRINGE IV PRN (16:53)
[2021-01-11] MEDS: Morphine ER 15 mg TAB ** extended release PO SCH (21:30)
[2021-01-11] MEDS: Enoxaparin 40 MG/0.4 ML SYR SUBCUT SCH (22:29)
[2021-01-12] MEDS: NS 0.9% 1000 ml BAG 1,000 ML IV SCH (00:01)
[2021-01-12] MEDS: Cholecalciferol (VIT D3) 1,000 unit TAB PO SCH (09:56)
[2021-01-12 10:55] LABS: Urine Appearance Turbid; Urine Bilirubin Negative (Negative); Urine Blood Negative (Negative); Urine Color Yellow; Urine Glucose Negative (Negative); Urine Ketones Negative (Negative); Urine Nitrite Positive (Negative); Urine Protein 3+(>=500 mg/dL) (Negative); Urine Specific Gravity 1.023 (1.002-1.030); Urine Urobilinogen Negative (Negative)
[2021-01-12 11:10] LABS: Urine Bacteria Absent (Absent); Urine Red Blood Cell Trace(0-2/hpf) (Absent); Urine White Blood Cell Trace(0-5/hpf) (Absent)
[2021-01-12 12:06] LABS: ABS Eosinophils 0.2 10^3/ul (0-0.6); ABS Lymphocytes 1.4 10^3/ul (1.0-4.8); ABS Monocytes 1.3 10^3/ul (0-0.8); Eosinophil % 2.4 %; Hematocrit 43 % (35-47); Hemoglobin 14.3 g/dL (12.0-16.0); Lymphocyte % 13.6 %; Mean Corpuscular HGB Conc 33 g/dL (31-36); Mean Corpuscular Hemoglobin 31 pg (27-31); Mean Corpuscular Volume 92 fL (80-97); Mean Platelet Volume 8.5 fL (7.4-10.4); Platelet Count 201 10^3/uL (150-450); Red Blood Count 4.67 10^6 /uL (3.70-4.87); Red Cell Distribution Width 14 % (10-15)
[2021-01-12 12:11] LABS: Albumin/Globulin Ratio 1.3 (1-3); C Reactive Protein 60.09 mg/L (<8.01); EGFR African American 158.5 (>60); Globulin 2.4 g/dL (2-4); Potassium 3.8 mmol/L (3.5-5.0); Total Bilirubin 0.6 mg/dL (0.2-1.0); Total Protein 5.4 g/dL (6.4-8.9)
[2021-01-12] MEDS: Valproic Acid IV 750 MG in NS 0.9% 100 ml BAG 100 ML IVPB SCH ×2 (13:57→21:25)
[2021-01-12] MEDS: Enoxaparin 40 MG/0.4 ML SYR SUBCUT SCH (18:18)
[2021-01-12] MEDS: Morphine ER 15 mg TAB ** extended release PO SCH (21:22)
[2021-01-13] MEDS: NS 0.9% 1000 ml BAG 1,000 ML IV SCH ×3 (00:46→23:59)
[2021-01-13] MEDS: Valproic Acid IV 750 MG in NS 0.9% 100 ml BAG 100 ML IVPB SCH ×3 (03:50→21:46)
[2021-01-13] MEDS: Cholecalciferol (VIT D3) 1,000 unit TAB PO SCH (07:55)
[2021-01-13] MEDS: Enoxaparin 40 MG/0.4 ML SYR SUBCUT SCH (17:15)
[2021-01-13] MEDS: Morphine ER 15 mg TAB ** extended release PO SCH (21:57)
[2021-01-14] MEDS: Valproic Acid IV 750 MG in NS 0.9% 100 ml BAG 100 ML IVPB SCH ×3 (03:59→20:47)
[2021-01-14] MEDS: Cholecalciferol (VIT D3) 1,000 unit TAB PO SCH (07:48)
[2021-01-14] MEDS: NS 0.9% 1000 ml BAG 1,000 ML IV SCH (10:51)
[2021-01-14] MEDS: Morphine ER 15 mg TAB ** extended release PO SCH (20:43)
[2021-01-15] MEDS: NS 0.9% 1000 ml BAG 1,000 ML IV SCH ×2 (02:21→20:00)
[2021-01-15] MEDS: Valproic Acid IV 750 MG in NS 0.9% 100 ml BAG 100 ML IVPB SCH ×3 (03:54→20:00)
[2021-01-15] MEDS: Cholecalciferol (VIT D3) 1,000 unit TAB PO SCH (07:36)
[2021-01-15] MEDS: Morphine ER 15 mg TAB ** extended release PO SCH (19:59)
[2021-01-16] MEDS: Valproic Acid IV 750 MG in NS 0.9% 100 ml BAG 100 ML IVPB SCH ×3 (03:48→19:54)
[2021-01-16] MEDS: Cholecalciferol (VIT D3) 1,000 unit TAB PO SCH (07:49)
[2021-01-16] MEDS: NS 0.9% 1000 ml BAG 1,000 ML IV SCH (10:42)
[2021-01-16] MEDS: Morphine ER 15 mg TAB ** extended release PO SCH (20:36)
[2021-01-16] MEDS ORDERED: Morphine 2 MG/ML SYRINGE IV PRN (22:11)
[2021-01-17] MEDS: Valproic Acid IV 750 MG in NS 0.9% 100 ml BAG 100 ML IVPB SCH ×3 (04:10→21:58)
[2021-01-17] MEDS: Cholecalciferol (VIT D3) 1,000 unit TAB PO SCH (10:57)
[2021-01-17] MEDS: NS 0.9% 1000 ml BAG 1,000 ML IV SCH (13:15)
[2021-01-17] MEDS: Morphine ER 15 mg TAB ** extended release PO SCH (21:54)
[2021-01-18] MEDS: Valproic Acid IV 750 MG in NS 0.9% 100 ml BAG 100 ML IVPB SCH ×3 (04:55→20:02)
[2021-01-18] MEDS: NS 0.9% 1000 ml BAG 1,000 ML IV SCH (14:33)
[2021-01-18] MEDS ORDERED: NS 0.9% 1000 ml BAG 1,000 ML IV SCH (18:37)
[2021-01-18] MEDS: Cholecalciferol (VIT D3) 1,000 unit TAB PO SCH (19:14)
[2021-01-19] MEDS: Valproic Acid IV 750 MG in NS 0.9% 100 ml BAG 100 ML IVPB SCH ×3 (04:34→21:38)
[2021-01-19] MEDS: NS 0.9% 1000 ml BAG 1,000 ML IV SCH (11:27)
[2021-01-20] MEDS: Valproic Acid IV 750 MG in NS 0.9% 100 ml BAG 100 ML IVPB SCH ×3 (05:21→20:13)
[2021-01-20] MEDS: NS 0.9% 1000 ml BAG 1,000 ML IV SCH (20:13)
[2021-01-20] MEDS: Morphine ORAL CONCENTRATE 5 MG/0.25 ML ORAL.SYRIN PO PRN ×2 (21:12→22:56)
[2021-01-21] MEDS: Morphine ORAL CONCENTRATE 5 MG/0.25 ML ORAL.SYRIN PO PRN ×2 (02:42→05:31)
[2021-01-21] MEDS: Valproic Acid IV 750 MG in NS 0.9% 100 ml BAG 100 ML IVPB SCH ×3 (04:21→21:32)
[2021-01-21] MEDS: NS 0.9% 1000 ml BAG 1,000 ML IV SCH (18:15)
[2021-01-22] MEDS: Morphine ORAL CONCENTRATE 5 MG/0.25 ML ORAL.SYRIN PO PRN (02:23)
[2021-01-22] MEDS: Valproic Acid IV 750 MG in NS 0.9% 100 ml BAG 100 ML IVPB SCH ×3 (03:25→20:12)
[2021-01-22] MEDS: NS 0.9% 1000 ml BAG 1,000 ML IV SCH (20:20)
[2021-01-23] MEDS: Valproic Acid IV 750 MG in NS 0.9% 100 ml BAG 100 ML IVPB SCH ×3 (04:10→20:20)
[2021-01-23 17:02] VITALS: BP 107/72
[2021-01-23] MEDS: NS 0.9% 1000 ml BAG 1,000 ML IV SCH (20:20)
[2021-01-24] MEDS: Valproic Acid IV 750 MG in NS 0.9% 100 ml BAG 100 ML IVPB SCH ×2 (05:00→12:33)
== END 2021-01-24 10:22 | disposition expired ==
LOC: ED 11:04 → MEDTELE 16:48
PROVIDERS: ADMIT Internal Medicine Hematology & Oncology; ATTEND Internal Medicine Hematology & Oncology